=== PATIENT | female | born 1965 | race Caucasian/White ===

== ENCOUNTER 2018-07-01 17:11 | Outpatient (REF) | payer BC, SELFPAY ==
[2018-07-01 22:19] LABS: ESR 16 MM/HR (0-30)
[2018-07-03 12:52] LABS: Rheumatoid Factor <8 IU/mL (<12.5)
[2018-07-03 15:19] LABS: ANA Interpretation Negative (NEGAT)
[2018-07-03 15:25] LABS: Lyme Ab w Rflx to Lyme Confirm Negative
[2018-07-03 21:12] LABS: Anaplasma phagocytophilum Negative (Negative); B. miyamotoi PCR Negative (Negative); Babesia divergens/MO-1 Negative (Negative); Babesia duncani Negative (Negative); Babesia microti Negative (Negative); Ehrlichia chaffeensis Negative (Negative); Ehrlichia ewingii/canis Negative (Negative); Ehrlichia muris eauclairensis Negative (Negative)
== END 2018-07-01 17:31 ==
LOC: NCHCN 17:11
PROVIDERS: PCP Physician Assistant Medical; Visit Provider Physician Assistant Medical
DX: M25.50 Pain in unspecified joint (principal)
CPT/HCPCS: 85652; 86038; 86140; 86431; 86618; 87798

== ENCOUNTER 2018-07-02 09:25 | Outpatient (CLI) | payer BC, SELFPAY ==
--- NOTE | 2018-07-02 14:42 | DI.RAD_ITS ---
SYMPTOMS/DIAGNOSIS: RIGHT KNEE PAIN, M25.561 RIGHT KNEE: Periarticular hypertrophic spurring is most pronounced in the patellofemoral joint. There is a probable small joint effusion.
== END 2018-07-02 09:45 ==
PROVIDERS: PCP Physician Assistant Medical; Visit Provider Physician Assistant Medical
DX: M25.561 Pain in right knee (principal); M25.461 Effusion, right knee
CPT/HCPCS: 73562

== ENCOUNTER 2018-07-22 23:35 | Observation (INO) | payer BC, SELFPAY ==
[2018-07-22 23:42] VITALS: BP 175/106; PULSE 75; RESP 16; TEMP 36.6; O2SAT 100
[2018-07-23] VITALS (9 sets, daily range): BP systolic 130–170; BP diastolic 84–105; PULSE 64–79; RESP 16–20; TEMP 36.6–37; O2SAT 94–99
--- NOTE | 2018-07-23 00:04 | W.ED.GENAD ---
Discharge Plan Disposition Patient Disposition: [facility] INPATIENT Condition: Stable Discharge Details Chief Complaint: Abd Prob Clinical Impression: Small bowel obstruction Primary Care Provider: Willian Petersen ED Provider: Ken Shipman Home Meds and New Rx's Prescriptions: No Action citalopram 10 MG tablet 10 mg PO HS RF: 0 cetirizine 10 MG tablet,chewable 10 mg PO HS RF: 0 acetaminophen 325 MG tablet 2 tab PO Q4H PRN PRNRF: 0 fluticasone 16 GM spray,suspension 1 spray NS BID RF: 0 Ibuprofen 400 MG Tablet 400 mg PO PRN PRNRF: 0 Medical Decision Making <Balaji Bland MD - Last Filed: 07/23/18 01:46> 53-year-old female presents from home with recurrent episodes of nausea and vomiting consistent with previous ileus. She is at risk for small bowel obstruction given previous surgical history. She arrives afebrile, in mild distress. She is tender in the abdomen but does not demonstrate peritonitis. IV access established, patient given antiemetic and analgesic, fluids initiated, patient referred for laboratory testing and x-ray. Patient's labs reveal a white blood cell count of 12, hematocrit 45, platelets 307. Chemistries are reassuring. X-ray reveals nonobstructive gas pattern. Consistent with ileus. Patient is desirous of admission to [facility] and does not wish to be transferred. Currently, there is no available bed, therefore we will continue observation and fluid replacement in the ED <Ken Shipman MD - Last Filed: 07/23/18 09:39> Pt's CT shows mid small bowel obstruction per Dr. patrick, spoke with Dr. Taylor who will admit the pt and asks that a ng tube be placed. Pt consents to having this done and is agreeable with admission Imaging Data Radiologic Study: Attestation: I personally reviewed and interpreted this imaging study as follows: Imaging: CT Scan My impression: SBO HPI <Balaji Bland MD - Last Filed: 07/23/18 01:46> General Mode of arrival: ambulatory. Date/Time Provider Initiated Documentation: 07/22/18 23:38. Limitations to Documentation: no limitations. Information obtained by: patient and family. History of Present Illness described as moderate, Quality is described as other (Cramping), and is localized to the abdomen. Patient reports no radiation. Patient started experiencing this hour(s) and it has been intermittent. No relieving factors improve symptom(s), Eating worsens symptoms . HPI Narrative: 53-year-old female presents from home with a gradual onset of abdominal crampy, diffuse pain associated with nausea and vomiting. Worsened by p.o. intake. Similar to previous episodes of ileus. She denies any fever. Related Data Home Medications Medication Instructions Recorded Confirmed cetirizine 10 mg PO HS 07/28/15 07/22/18 citalopram 10 mg PO HS 07/28/15 07/22/18 acetaminophen 2 tab PO Q4H PRN PRN 12/31/16 07/22/18 Ibuprofen 400 mg PO PRN PRN 01/03/18 07/22/18 fluticasone 1 spray NS BID 01/03/18 07/22/18 Allergies Allergy/AdvReac Type Severity Reaction Status Date / Time latex Allergy Skin Rash Unverified 07/22/18 23:47 Opioids - Morphine Analogues AdvReac Intermediate N/V/Dizzine Unverified 07/22/18 23:47 ss General Stated Complaint: Abd Prob DOUG: 3 Review of Systems <Balaji Bland MD - Last Filed: 07/23/18 01:46> Review of Systems 8 systems reviewed and otherwise negative Exam <Balaji Bland MD - Last Filed: 07/23/18 01:46> Narrative Exam Narrative: GEN: awake, alert, oriented 3. Pleasant, well groomed, interactive. HEAD: Normocephalic, atraumatic ENT: Mucous membranes moist, oropharynx unremarkable, External ear exam unremarkable EYES: PERRL, EOMI NECK: Full ROM, no CINDY, no menigismus CHEST/RESP: Nontender, clear to auscultation bilateral, no wheeze/rhonchi/rales CARDIOVASCULAR: RRR, no murmur, rub justine. 2+ Rad pulse bilateral ABDOMEN: Soft, slightly tender, distended, no rebound, no mass. +Bowel sounds EXT: Full ROM, no edema, no rash Neuro: Grossly normal neurologic exam, conversant, interactive. Psych: Speech fluent, thoughts congruent, affect normal Course <Balaji Bland MD - Last Filed: 07/23/18 01:46> Vital Signs Temperature 36.6 C 07/22/18 23:42 Pulse 75 07/22/18 23:42 Respiratory Rate 16 07/22/18 23:42 Blood Pressure 175/106 H 07/22/18 23:42 Pulse Oximetry 100 07/22/18 23:42 Temperature 36.6 C 07/22/18 23:42 Temperature Source Skin 07/22/18 23:42 Pulse 75 07/22/18 23:42 Respiratory Rate 16 07/22/18 23:42 Respiratory Effort 07/22/18 23:44 Blood Pressure 175/106 H 07/22/18 23:42 Blood Pressure Position Sitting 07/22/18 23:42 Pulse Oximetry 100 07/22/18 23:42 Pain Level 7 07/22/18 23:42 Sign Out <Balaji Bland MD - Last Filed: 07/23/18 01:46> Sign Out Data: Sign Out Comment: CT result, prob admission Last updated by Balaji Bland MD at 07/23/18 07:52
[2018-07-23 00:13] LABS: Abs Immature Grans 0.03 k/cumm (0.0-0.09); Absolute Basophil Count 0.03 k/cumm (0.0-0.2); Absolute Eosinophil Count 0.18 k/cumm (0.0-0.7); Absolute Lymphocyte Count 2.66 k/cumm (1.2-3.4); Absolute Monocyte Count 0.83 k/cumm (0.11-0.7); Absolute Neutrophil Count 8.85 k/cumm (1.2-6.7); Basophils % 0.2; Eosinophils % 1.4; HCT 45.1 % (36.0-46.0); HGB 15.5 g/dL (12.0-15.5); Immature Grans % 0.2; Lymphocytes % 21.2; Mean Corp. HGB Concentration 34.4 g/dL (32.0-36.0); Mean Corpuscular Hemoglobin 29.5 pg (27.0-33.0); Mean Corpuscular Volume 85.7 fL (80-95); Mean Platelet Volume 9.6 fL (8.0-11.0); Monocytes % 6.6; Neutrophils % 70.4; Platelet Count 307 x1000/uL (130-400); RBC 5.26 m/cumm (4.00-5.20); RBC Distribution Width 13.8 % (11.7-14.6); White Blood Cell Count 12.57 k/cumm (4.4-10.8)
[2018-07-23] MEDS: Normal Saline 1,000 ML 125 ML IV ×2 (00:13→11:07)
[2018-07-23] MEDS: Ketorolac 15 MG/ML VIAL IVP ×2 (00:13→04:12)
[2018-07-23] MEDS: Ondansetron 4 MG/2 ML VIAL IVP ×2 (00:13→06:08)
--- NOTE | 2018-07-23 00:20 | DI.RAD_ITS ---
SYMPTOM/DIAGNOSIS: ABD PAIN, BLOATING, VOMITING PA CHEST AND FLAT AND UPRIGHT ABDOMEN: Comparison is made with 01/03/18. The heart size is normal. The lungs are clear. No free air is seen. Stool is seen throughout the colon. There are no dilated bowel loops or air fluid levels. Surgical clips are noted in the right upper quadrant. No organomegaly or urinary tract calculi are seen. IMPRESSION: Increased stool, otherwise negative.
[2018-07-23 00:25] LABS: ALT 21 U/L (12-78); AST 19 U/L (15-37); Albumin 3.8 g/dL (3.4-5.0); Alkaline Phosphatase 102 U/L (46-116); Anion Gap 12.7 mmol/L (3-11); BUN 12 mg/dL (7-18); Bilirubin, Total 0.6 mg/dL (0.2-1.0); CO2 31.3 mmol/L (21.0-32.0); Chloride 100 mmol/L (98-107); Glucose 121 mg/dL (70-100); Lipase 64 U/L (73-393); Potassium 3.7 mmol/L (3.5-5.1); Sodium 144 mmol/L (136-145); Total Protein 8.2 g/dL (6.4-8.2)
--- NOTE | 2018-07-23 01:08 | DI.VRAD_ITS ---
EXAM: XR Abdomen 2 Views with XR Chest 1 View EXAM DATE/TIME: 07/23/2018 12:04 AM CLINICAL HISTORY: 53 years old, female; Pain and signs and symptoms; Nausea and vomiting; Abdominal pain; Generalized; Patient HX: Nausea, vomiting, abd pain, HX of colon CA TECHNIQUE: XR of the abdomen (2 views) with XR chest (1 view). COMPARISON: CR ABD FLAT UPRIGHT PA CHEST 01/03/2018 10:38 PM FINDINGS: Tubes, catheters and devices: The previously seen left chest wall infusion port has been removed. Lungs: The pulmonary vasculature is within normal limits. The lungs are clear. Pleural space: No pneumothorax. No pleural effusion. Heart/Mediastinum: The cardiomediastinal silhouette is within normal limits. Gastrointestinal tract: Moderate amount of stool in the colon. Nonobstructive bowel gas pattern. Intraperitoneal space: No evidence of pneumoperitoneum on the upright views. Right upper quadrant surgical clips. Vasculature: Scattered pelvic phleboliths in the pelvis. Bones/joints: Normal. No acute fracture. Soft tissues: Normal. IMPRESSION: 1. No acute cardiopulmonary abnormality. 2. Nonobstructive bowel gas pattern. Dictated and Authenticated by: Leonor Leung MD. Ordering:MARIA ISABEL RIBEIRO MD
[2018-07-23 02:07] LABS: Bilirubin Negative (Negative); Blood Negative (Negative); Clarity Clear; Glucose Negative (Negative); Ketones Trace mg/dL (Negative); Leukocyte Esterase Negative (Negative); Nitrite Negative (Negative); Specific Gravity 1.025 (1.005-1.025); Urobilinogen 0.2 EU/dL (Up TO 0.2); pH 6.5 (5-8)
[2018-07-23 02:15] LABS: Bacteria Negative HPF (Negative); C & S Indicated? No; Casts Negative LPF (Negative); Crystals Negative HPF (Negative); Epithelial Cells Rare HPF (Negative); Mucus Negative (Negative); RBC Negative (0-2); WBC 0-2 HPF (0-5)
--- NOTE | 2018-07-23 07:46 | DI.CT_ITS ---
SYMPTOM/DIAGNOSIS: ABD PAIN, BLOATING VOMITING ABDOMEN AND PELVIS CT: Comparison is made with 01/30/18. Images were performed from the lung bases through the ischial tuberosities after IV and without benefit of oral contrast. The patient has a history of rectal cancer. The bowel is not well evaluated without oral contrast. There is mild dilatation of loops of small bowel in the mid abdomen. A rectal anastomosis with suture material at the cecum are noted. There is a small amount of fluid. There are decompressed loops of small bowel distally. Stool is seen throughout the colon however the colon is not abnormally dilated. The patient is status post cholecystectomy. The lung bases are clear. The spleen, adrenals and pancreas are unremarkable. The patient is status post hysterectomy. The bladder is nearly empty. IMPRESSION: The findings are consistent with a mid small bowel obstruction.
[2018-07-23] MEDS: Omnipaque 350 MG/ML 100 ML BTL IJ (08:07)
[2018-07-23] MEDS: Metoclopramide 10 MG/2 ML VIAL IVP (09:11)
[2018-07-23] MEDS: Ketorolac 15 MG/ML VIAL ×2 (09:58→14:19)
--- NOTE | 2018-07-23 10:09 | DI.VRAD_ITS ---
EXAM: CT Abdomen and Pelvis With Intravenous Contrast EXAM DATE/TIME: 07/23/2018 8:23 AM CLINICAL HISTORY: 53 years old, female; Signs and symptoms; Other: Abd pain, bloating, vomiting TECHNIQUE: Axial computed tomography images of the abdomen and pelvis with intravenous contrast. All CT scans at this facility use at least one of these dose optimization techniques: automated exposure control; mA and/or kV adjustment per patient size (includes targeted exams where dose is matched to clinical indication); or iterative reconstruction. Coronal and sagittal reformatted images were created and reviewed. CONTRAST: 100 ml of Omnipaque 350 administered intravenously. COMPARISON: CT CHEST ABD PELVIS WITH CONTRAST 01/30/2018 9:21 AM FINDINGS: Lower thorax: -Small hiatal hernia Small nodular density in the soft tissues of the right breast inferiorly. 10 mm. ABDOMEN: Liver: Area of low attenuation within the liver adjacent to the fissure of the ligamentum teres is believed to represent focal fat. Gallbladder and bile ducts: Mild prominence of the biliary radicles intrahepatically. Prominence of the extrahepatic biliary radicals status post cholecystectomy. Correlate with LFTs. -Surgical clips are present in the region of the gallbladder fossa. -Prominence of the biliary radicals likely related to the prior cholecystectomy and hence the reservoir effect. Please correlate with LFTs. Pancreas: Low density in the region of the head of the pancreas. Likely atrophic. Spleen: -Small accessory spleen is present. Adrenals: Normal. No mass. Kidneys and ureters: Normal. No hydronephrosis. Stomach and bowel: Numerous loops of air fluid filled small bowel particularly in the mid and lower abdomen and pelvis. Findings reflect a small bowel obstruction. Transition point appears to be a loop of thickened small bowel in the right pelvis. See image #74 series 5. The bowel proximal to this is air and fluid filled and mildly dilated with fecalization of the adjacent bowel. Operative changes in the rectosigmoid region. Severe thickening of the rectum and about the anastomosis. Edema and inflammation in the presacral fat. Correlate. Operative changes in the region of the cecum and or terminal ileum. Appendix: No evidence of appendicitis. PELVIS: Bladder: Unremarkable as visualized. Reproductive: Prior hysterectomy. ABDOMEN and PELVIS: Intraperitoneal space: Normal. No free air. No significant fluid collection. Bones/joints: Degenerative changes are present within the spine. Soft tissues: Unremarkable. Vasculature: Normal. No abdominal aortic aneurysm. Lymph nodes: Normal. No enlarged lymph nodes. Other findings: Stable moderate and IMPRESSION: 1. Numerous loops of air fluid filled small bowel particularly in the mid and lower abdomen and pelvis. Findings reflect a small bowel obstruction. Transition point appears to be a loop of thickened small bowel in the right pelvis. See image #74 series 5. The bowel proximal to this is air and fluid filled and mildly dilated with fecalization of the adjacent bowel. . this represents an interval change. 2. Operative changes in the rectosigmoid region. Severe thickening of the rectum and sigmoid colon about the anastomosis. This is progressive. Edema and inflammation in the presacral fat was previously noted. Correlate. 3. Operative changes in the region of the cecum and or terminal ileum. 4. Mild prominence of the biliary radicles intrahepatically. Prominence of the extrahepatic biliary radicals status post cholecystectomy. Correlate with LFTs. 5. Low density in the region of the head of the pancreas. Likely atrophic. 6. Small nodular density in the soft tissues of the right breast inferiorly. 10 mm. Dictated and Authenticated by: Austin Lopez MD. Ordering:MARIA ISABEL RIBEIRO MD
--- NOTE | 2018-07-23 11:56 | W.PM.HP.N ---
Date of service: 07/23/18 Time of Service: 11:56 Assessment and Plan (1) Small bowel obstruction: Current visit: Yes Status: Acute A// 53 y/o female with history of numerous admissions for Ileus following rectal cancer treatment. Based on imaging she currently has a small bowel obstruction. N/V and abdominal pain has improved following administration of Reglan and Toradol. Imaging: CT scan demonstrated mid small bowel obstruction. ABD XRAY demonstrated increased stool. No dilated bowel loops or air/fluid levels. Discussed use of NG tube to help decompress the bowel. Dr. Cole followed up with Florian Mjisiahaníbal. Ms. Brownlee would like to hold off on the NG tube. If her N/V returns or if her abdominal pain becomes progressively worse, at that time she would like to move forward with NG tube placement. P// NG Tube- Will hold of on NG. If nausea or vomiting continues or worsens or if her abdominal pain changes or worsens will reconsider NG tube placement. Continue Tordal for pain management N/V- Last bout of emesis was around 1000, these symptoms improved following administration of Reglan. Continue Reglan for N/V PRN. DIET- NPO ACTIVITY- Encouraged ambulation as tolerated. History of Present Illness Chief Complaint: Small bowel obstruction Narrative: Patient presents with complaints of cramping abdominal pain and N/V since last night around 2100. She reports that her abdominal pain comes and goes and feels like a cramping sensation. She states that prior to arrival in the ED her PL was 8-9/10PL. She last ate yesterday afternoon around 1400. Last BM was last evening. She denies any fevers, chills or sweating. Review of Systems Constitutional Denies chills, Denies excessive sweating and Denies fever(s) Cardiovascular Denies chest pain, Denies chest pain at rest, Denies chest pain with activity and Denies diaphoresis Respiratory Denies cough, Denies hemoptysis, Denies pain with cough and Denies wheezing Gastrointestinal Reports abdominal pain (Periumbilical and LLQ), Denies melena, Denies hematochezia, Denies constipation, Reports cramping (Periumbilical and LLQ ), Denies diarrhea, Reports nausea and Reports vomiting (Last time occured around 1000) Comments: N/V has improved following Reglan administration. Genitourinary Denies urinary incontinence, Denies urinary hesitancy and Denies urinary urgency Endocrine Denies excessive sweating Allergic/Immunologic Denies wheezing PFSH Family History Mother Dementia Medical History Anxiety Migraine Rectal cancer Rectal prolapse Social History Smoking/Tobacco Use Status: Never Surgical History Biopsy of breast Cholecystectomy Colonoscopy - MAC (09/30/16) Colonoscopy - MAC (01/01/17) Colonoscopy - MAC (06/01/18) Partial resection of colon (11/27/16) Vaginal hysterectomy colostomy takedown (10/15/17) left subclavian vein port removal (05/07/18) Meds Home Medications Medication Instructions Recorded Confirmed Type cetirizine 10 mg PO HS 07/28/15 07/22/18 History citalopram 10 mg PO HS 07/28/15 07/22/18 History acetaminophen 2 tab PO Q4H PRN PRN 12/31/16 07/22/18 History Ibuprofen 400 mg PO PRN PRN 01/03/18 07/22/18 History fluticasone 1 spray NS BID 01/03/18 07/22/18 History Allergies Allergy/AdvReac Type Severity Reaction Status Date / Time latex Allergy Skin Rash Unverified 07/22/18 23:47 Opioids - Morphine Analogues AdvReac Intermediate N/V/Dizzine Unverified 07/22/18 23:47 ss Exam Const General: cooperative and acute distress mild Orientation: alert and oriented x3 Resp Effort & Inspection: normal respiratory effort Auscultation: clear to auscultation bilaterally Cardio Jugular venous pressure: no JVD Rate: regular rate Rhythm: regular rhythm Heart Sounds: S1 normal, S2 normal, no gallops and no murmurs GI Palpation: soft, no guarding and tender in the LLQ and periumbilically; with no rebound tenderness Auscultation: hypoactive bowel sounds Results Labs : 07/24/18 00:30 07/22/18 23:55 Laboratory Results - last 24 hr 07/22/18 07/22/18 07/23/18 23:55 23:55 02:00 WBC 12.57 H RBC 5.26 H Hgb 15.5 Hct 45.1 MCV 85.7 MCH 29.5 MCHC 34.4 RDW 13.8 Plt Count 307 MPV 9.6 Immature Gran % 0.2 Neutrophils % 70.4 Lymphocytes % 21.2 Monocytes % 6.6 Eosinophils % 1.4 Basophils % 0.2 Absolute Neutrophils 8.85 H Absolute Lymphocytes 2.66 Absolute Monocytes 0.83 H Absolute Eosinophils 0.18 Absolute Basophils 0.03 Sodium 144 Potassium 3.7 Chloride 100 Carbon Dioxide 31.3 Anion Gap 12.7 H BUN 12 Creatinine 0.80 Estimated GFR/1.73 m2 >= 60.00 Glucose 121 H Calcium 10.0 Total Bilirubin 0.6 AST 19 ALT 21 Alkaline Phosphatase 102 Total Protein 8.2 Albumin 3.8 Lipase 64 L Urine Color Yellow Urine Clarity Clear Urine pH 6.5 Ur Specific [place] 1.025 Urine Protein 30 H Urine Ketones Trace H Urine Blood Negative Urine Nitrite Negative Urine Bilirubin Negative Urine Urobilinogen 0.2 Ur Leukocyte Esterase Negative Urine RBC Negative Urine WBC 0-2 Ur Epithelial Cells Rare Urine Crystals Negative Urine Bacteria Negative Urine Casts Negative Urine Mucus Negative Ur Culture Indicated? No Urine Glucose Negative Last Vital Signs Temp 37 C 07/23/18 11:44 Pulse 76 07/23/18 11:44 Resp 16 07/23/18 11:44 BP 155/94 H 07/23/18 11:44 Pulse Ox 94 L 07/23/18 11:44
[2018-07-23] MEDS: Pantoprazole 40 MG VIAL IVP (14:13)
[2018-07-23] MEDS: Enoxaparin 40 MG/0.4 ML SYR SC (15:32)
[2018-07-23] MEDS: Lactated Ringers 1,000 ML 125 ML IV ×2 (15:35→23:31)
[2018-07-23] MEDS: Bisacodyl 10 MG SUPP PR (18:27)
[2018-07-23] MEDS: ACETAMINOPHEN 1,000 MG/100 ML BTL 400 MG IVPB (19:43)
[2018-07-23] MEDS: Ketorolac 30 MG/ML VIAL IVP (23:36)
[2018-07-23] MEDS: Normal Saline Flush 10 ML SYR IVP (23:37)
[2018-07-24 00:33] VITALS: BP 136/90; PULSE 72; RESP 15; TEMP 35.7; O2SAT 98
[2018-07-24 00:39] LABS: Abs Immature Grans 0.01 k/cumm (0.0-0.09); Absolute Basophil Count 0.02 k/cumm (0.0-0.2); Absolute Eosinophil Count 0.11 k/cumm (0.0-0.7); Absolute Lymphocyte Count 2.08 k/cumm (1.2-3.4); Absolute Monocyte Count 0.83 k/cumm (0.11-0.7); Absolute Neutrophil Count 6.57 k/cumm (1.2-6.7); Basophils % 0.2; Eosinophils % 1.1; HCT 37.2 % (36.0-46.0); HGB 12.7 g/dL (12.0-15.5); Immature Grans % 0.1; Lymphocytes % 21.6; Mean Corp. HGB Concentration 34.1 g/dL (32.0-36.0); Mean Corpuscular Hemoglobin 29.8 pg (27.0-33.0); Mean Corpuscular Volume 87.3 fL (80-95); Mean Platelet Volume 9.2 fL (8.0-11.0); Monocytes % 8.6; Neutrophils % 68.4; Platelet Count 252 x1000/uL (130-400); RBC 4.26 m/cumm (4.00-5.20); RBC Distribution Width 14.1 % (11.7-14.6); White Blood Cell Count 9.62 k/cumm (4.4-10.8)
[2018-07-24 04:06] VITALS: BP 162/84; PULSE 82; RESP 14; TEMP 36.4; O2SAT 99
[2018-07-24 07:20] VITALS: BP 123/80; PULSE 72; RESP 16; TEMP 36.3; O2SAT 97
[2018-07-24] MEDS: Lactated Ringers 1,000 ML 125 ML IV ×3 (07:24→22:51)
[2018-07-24 07:46] LABS: ALT 16 U/L (12-78); AST 14 U/L (15-37); Albumin 2.6 g/dL (3.4-5.0); Alkaline Phosphatase 69 U/L (46-116); Anion Gap 6.8 mmol/L (3-11); BUN 14 mg/dL (7-18); Bilirubin, Total 0.8 mg/dL (0.2-1.0); CO2 27.2 mmol/L (21.0-32.0); Calcium 8.4 mg/dL (8.5-10.1); Chloride 110 mmol/L (98-107); Glucose 86 mg/dL (70-100); Magnesium 1.9 mg/dL (1.8-2.4); Potassium 3.4 mmol/L (3.5-5.1); Sodium 144 mmol/L (136-145); Total Protein 5.8 g/dL (6.4-8.2)
--- NOTE | 2018-07-24 08:44 | W.PM.PROGNOT ---
Documented by User: TONY Dee 07/24/18 08:53 Assessment and Plan (1) Small bowel obstruction: Current visit: Yes Status: Acute A// Small bowel obstruction. Nausea and vomiting has resolved and her pain levels of decreased. No bowel sounds were appeciated on exam this morning. P// PAIN- Symptoms have improved. Continue with tordal PRN for pain. DIET- Continue NPO. ACTIVITY- Continue ambulating in the hallway. Subjective Patient reports: pain is less; denies flatus, nausea and vomiting Interval history since last seen: Ms. Irvin states that her pain levels have improved and she has not taken any medications for pain since last evening at 23:00. She denies any complaints of nausea or vomiting since yesterday (07/23) at 11:00. (+) BM yesterday following a suppository. She has ambulated several laps in the hallway already this morning. Exam Const General: cooperative and comfortable Orientation: alert and oriented x3 Resp Effort & Inspection: normal respiratory effort Auscultation: clear to auscultation bilaterally, no crackles and no wheezes Cardio Jugular venous pressure: no JVD Rate: regular rate Rhythm: regular rhythm Heart Sounds: S1 normal, S2 normal, no click and no gallops GI Palpation: soft, no guarding and nontender Auscultation: absent bowel sounds Objective Objective Clinical Data: Abnormal lab results 07/24/18 07/24/18 Range/Units 00:30 06:25 Absolute Monocytes 0.83 H (0.11-0.7) k/cumm Potassium 3.4 L (3.5-5.1) mmol/L Chloride 110 H (98-107) mmol/L Calcium 8.4 L (8.5-10.1) mg/dL AST 14 L (15-37) U/L Total Protein 5.8 L (6.4-8.2) g/dL Albumin 2.6 L (3.4-5.0) g/dL Vital Signs Temperature 36.3 C L 07/24/18 07:20 Temperature Source Tympanic 07/24/18 07:20 Pulse 72 07/24/18 07:20 Pulse Rhythm Regular 07/24/18 00:05 Respiratory Rate 16 07/24/18 07:20 Respiratory Effort 07/24/18 00:05 Respiratory Depth Normal 07/24/18 00:05 Respiratory Pattern Normal 07/24/18 00:05 Blood Pressure 123/80 07/24/18 07:20 Blood Pressure Position Sitting 07/22/18 23:42 Pulse Oximetry 97 07/24/18 07:20 Oxygen Delivery Method Room Air 07/24/18 07:20 Oxygen Flow Rate 0 07/24/18 07:20 Pain Level 2 07/23/18 23:36 Comment 07/23/18 14:49 Intake & Output 07/23/18 07/23/18 07/24/18 11:59 23:59 11:59 Intake Total 1000 / 1000 1887.917 / 1887.917 985.417 / 985.417 Output Total 200 / 200 300 / 300 300 / 300 Balance 800 / 800 1587.917 / 1587.917 685.417 / 685.417 Weight 95.7 kg Intake: IV 1000 / 1000 1647.917 / 1647.917 985.417 / 985.417 Oral 240 / 240 0 / 0 Output: Urine 300 / 300 300 / 300 Emesis 200 / 200 Other: Urine Color Yellow Urine Appearance Clear Comment voided in toilet x 1, unseen. 300cc is pt's estimate Stool Size Small Stool Characteristics Liquid Brown Voiding Methods Toilet Toilet Laboratory Results WBC 9.62 k/cumm (4.4-10.8) 07/24/18 00:30 RBC 4.26 m/cumm (4.00-5.20) 07/24/18 00:30 Hgb 12.7 g/dL (12.0-15.5) D 07/24/18 00:30 Hct 37.2 % (36.0-46.0) 07/24/18 00:30 MCV 87.3 fL (80-95) 07/24/18 00:30 MCH 29.8 pg (27.0-33.0) 07/24/18 00:30 MCHC 34.1 g/dL (32.0-36.0) 07/24/18 00:30 RDW 14.1 % (11.7-14.6) 07/24/18 00:30 Plt Count 252 x1000/uL (130-400) 07/24/18 00:30 MPV 9.2 fL (8.0-11.0) 07/24/18 00:30 Immature Gran % 0.1 07/24/18 00:30 Neutrophils % 68.4 07/24/18 00:30 Lymphocytes % 21.6 10 00:30 Monocytes % 8.6 10 00:30 Eosinophils % 1.1 07/24/18 00:30 Basophils % 0.2 07/24/18 00:30 Absolute Neutrophils 6.57 k/cumm (1.2-6.7) 07/24/18 00:30 Absolute Lymphocytes 2.08 k/cumm (1.2-3.4) 07/24/18 00:30 Absolute Monocytes 0.83 k/cumm (0.11-0.7) H 07/24/18 00:30 Absolute Eosinophils 0.11 k/cumm (0.0-0.7) 07/24/18 00:30 Absolute Basophils 0.02 k/cumm (0.0-0.2) 07/24/18 00:30 Sodium 144 mmol/L (136-145) 07/24/18 06:25 Potassium 3.4 mmol/L (3.5-5.1) L 07/24/18 06:25 Chloride 110 mmol/L (98-107) H 07/24/18 06:25 Carbon Dioxide 27.2 mmol/L (21.0-32.0) 07/24/18 06:25 Anion Gap 6.8 mmol/L (3-11) 07/24/18 06:25 BUN 14 mg/dL (7-18) 07/24/18 06:25 Creatinine 0.70 mg/dL (0.55-1.02) 07/24/18 06:25 Estimated GFR/1.73 m2 >= 60.00 (mL/min/1.73m2) 07/24/18 06:25 Glucose 86 mg/dL (70-100) 07/24/18 06:25 Calcium 8.4 mg/dL (8.5-10.1) L 07/24/18 06:25 Magnesium 1.9 mg/dL (1.8-2.4) 07/24/18 06:25 Total Bilirubin 0.8 mg/dL (0.2-1.0) 07/24/18 06:25 AST 14 U/L (15-37) L 07/24/18 06:25 ALT 16 U/L (12-78) 07/24/18 06:25 Alkaline Phosphatase 69 U/L (46-116) 07/24/18 06:25 Total Protein 5.8 g/dL (6.4-8.2) L 07/24/18 06:25 Albumin 2.6 g/dL (3.4-5.0) L 07/24/18 06:25 Lipase 64 U/L (73-393) L 07/22/18 23:55 Urine Color Yellow (Yellow) 07/23/18 02:00 Urine Clarity Clear 07/23/18 02:00 Urine pH 6.5 (5-8) 07/23/18 02:00 Ur Specific [place] 1.025 (1.005-1.025) 07/23/18 02:00 Urine Protein 30 mg/dL (Negative) H 07/23/18 02:00 Urine Ketones Trace mg/dL (Negative) H 07/23/18 02:00 Urine Blood Negative (Negative) 07/23/18 02:00 Urine Nitrite Negative (Negative) 07/23/18 02:00 Urine Bilirubin Negative (Negative) 07/23/18 02:00 Urine Urobilinogen 0.2 EU/dL (Up TO 0.2) 07/23/18 02:00 Ur Leukocyte Esterase Negative (Negative) 07/23/18 02:00 Urine RBC Negative (0-2) 07/23/18 02:00 Urine WBC 0-2 HPF (0-5) 07/23/18 02:00 Ur Epithelial Cells Rare HPF (Negative) 07/23/18 02:00 Urine Crystals Negative HPF (Negative) 07/23/18 02:00 Urine Bacteria Negative HPF (Negative) 07/23/18 02:00 Urine Casts Negative LPF (Negative) 07/23/18 02:00 Urine Mucus Negative (Negative) 07/23/18 02:00 Ur Culture Indicated? No 07/23/18 02:00 Urine Glucose Negative mg/dL (Negative) 07/23/18 02:00
--- NOTE | 2018-07-24 09:27 | PHARADMIT ---
Admission Pharmacy Clinical Review SMALL BOWEL OBSTRUCTION Code Status Full Code Current Weight Wgt-95.7 kg Renally Cleared and Narrow Therapeutic Index Meds CrCl~ 77.26 mL/min Meds-OK QTc Value / Action Taken NA BP Control, Fever BP-123/80 Tmax-36.7C Electrolytes reviewed Na- 144 K+3.4 Mag- 1.9 DVT Prophylaxis Lovenox Opiate Usage / Scheduled Bowel Regimen Ordered Yes No Plt/SCr for Heparin / Enoxaparin Plts-252 SCr- 0.70 INR for Warfarin na H/H stable, WBC/Bands H&H- 12.7/37.2 WBC- 9.62 Antibiotic appropriateness none Cultures and Sensitivities none Surgical ABX d/c within 24 hr NA DM control / Insulin Dosing BG- 86 Heart Failure (Check EF%) (MELBA's, B-Block, Diuretics) none IV to PO Switch No Home Meds Reviewed Yes Home Meds Not Ordered Zyrtec, Celexa, Flonase, Ibuprofen Comments
[2018-07-24 11:15] VITALS: BP 144/91; PULSE 72; RESP 20; TEMP 36.1; O2SAT 97
[2018-07-24] MEDS: Normal Saline Flush 10 ML SYR IVP (11:15)
[2018-07-24] MEDS: Enoxaparin 40 MG/0.4 ML SYR SC (11:17)
[2018-07-24] MEDS: Pantoprazole 40 MG VIAL IVP (11:17)
[2018-07-24 16:01] VITALS: BP 145/88; PULSE 72; RESP 16; TEMP 37; O2SAT 100
--- NOTE | 2018-07-24 17:11 | PDOC.CMIN ---
- If Service Date Differs Date of service: 07/24/18 Time of Service: 17:11 Care Management Initial Assess REASON FOR HOSPITALIZATION:: Small bowel obstruction PAST MEDICAL HISTORY/PAST SURGICAL HISTORY:: Anxiety, migraine, rectal ca, rectal prolaspe. Surgical: colectomy, ileostomy, cholecystectomy, hysterectomy PREVIOUS FUNCTIONAL STATUS/SOCIAL/FAMILY SUPPORTS:: Patient is a 53 year old female who lives with her , Iman in [facility]. CURRENT FUNCTIONAL STATUS:: Brooke is sitting up in the chair visiting with her friend when CM into visit. She makes good eye contact she states she is ambulating to try and releive the small bowel obstruction. She appears in good spirts, and expresses confidence in the care she is receiving. ADVANCE DIRECTIVES:: On file--spouse, Isha is agent and Rev. Kojo Vergara is alternate. Has patient been provided with information about the portal?: Yes Did the patient sign up for the portal?: No CODE STATUS:: Full Code INSURANCE COVERAGE / FINANCIAL ISSUES:: BCBS CURRENT HOME/COMMUNITY SERVICES/EQUIPMENT:: No current services at home,she has been working with [employer] r/t disability application. PRIMARY CARE PHYSICIAN:: Willian Petersen POTENTIAL DISCHARGE NEEDS:: Follow up appointment with primary care provider and surgical provider as directed. PATIENT/FAMILY EDUCATION NEEDS:: Discharge education, limitations and follow up plan of care including ask me three discussion and self-care management ANTICIPATED BARRIERS TO DISCHARGE:: None identified at this time. TRANSPORTATION:: Via family at time of discharge when medically ready per MD. PLAN:: Brooke will discharge home with family when medically ready, anticipate no addtional services at time of discharge.
[2018-07-25 00:23] VITALS: BP 149/88; PULSE 90; RESP 18; TEMP 36.4; O2SAT 99
[2018-07-25 03:30] VITALS: BP 145/84; PULSE 70; RESP 16; TEMP 36.6; O2SAT 98
[2018-07-25] MEDS: Lactated Ringers 1,000 ML 125 ML IV (06:42)
[2018-07-25 07:25] VITALS: BP 156/89; PULSE 69; RESP 16; TEMP 36.4; O2SAT 99
[2018-07-25] MEDS: Normal Saline Flush 10 ML SYR IVP (11:10)
[2018-07-25] MEDS: Enoxaparin 40 MG/0.4 ML SYR SC (11:10)
[2018-07-25] MEDS: Pantoprazole 40 MG VIAL IVP (11:10)
[2018-07-25 11:20] VITALS: BP 167/96; PULSE 70; RESP 17; TEMP 36.1; O2SAT 98
--- NOTE | 2018-07-25 12:44 | PGE_ITS ---
Assessment and Plan (1) Small bowel obstruction: Current visit: Yes Status: Acute A// Small bowel obstruction seems to have resolved P// 1. PAIN- No pain for 24 hours. will switch tylenol over to po 2. Diet: Tolerated clear liquids this morning and for lunch. Will advance to soft, low fiber diet for dinner. 3. ACTIVITY- Continue ambulating in the hallway. 4. Disposition: If she continues to do well and is able to tolerate soft diet tonight and for breakfast then will d/c home Subjective Interval history since last seen: Brooke is doing well today. She started passing flatus earlier this morning and then had 3 BM's. She has had no abdominal pain in 24 hours. Exam Resp Effort & Inspection: normal respiratory effort Auscultation: clear to auscultation bilaterally Cardio Rate: regular rate Rhythm: regular rhythm Heart Sounds: no gallops, no murmurs and no rubs GI Palpation: soft and nontender Auscultation: normal bowel sounds Objective Objective Clinical Data: Vital Signs Temperature 97.5 F L 07/25/18 07:25 Temperature Source Tympanic 07/25/18 07:25 Pulse 69 07/25/18 07:25 Pulse Rhythm Regular 07/25/18 09:00 Respiratory Rate 16 07/25/18 07:25 Respiratory Effort Non-Labored 07/25/18 09:00 Respiratory Depth Normal 07/25/18 09:00 Respiratory Pattern Normal 07/25/18 09:00 Blood Pressure 156/89 H 07/25/18 07:25 Blood Pressure Position Sitting 07/22/18 23:42 Pulse Oximetry 99 07/25/18 07:25 Oxygen Delivery Method Room Air 07/25/18 07:25 Oxygen Flow Rate 0 07/25/18 07:25 Pain Level 0 07/25/18 07:25 Comment 07/25/18 03:30 Intake & Output 07/24/18 07/25/18 07/25/18 23:59 11:59 23:59 Intake Total 1541.667 / 2115.658 7254.25 / 1001.25 706.25 / 706.25 Output Total 200 / 200 Balance 1341.667 / 5743.209 4659.25 / 1001.25 706.25 / 706.25 Intake: IV 1541.667 / 3014.607 6522.25 / 1001.25 706.25 / 706.25 Output: Urine 200 / 200 Other: Urine Color Yellow Urine Appearance Clear Comment Pt voiding independently in bathroom. Stool Size Smear Stool Characteristics Liquid Brown Voiding Methods Toilet Toilet Laboratory Results WBC 9.62 k/cumm (4.4-10.8) 07/24/18 00:30 RBC 4.26 m/cumm (4.00-5.20) 07/24/18 00:30 Hgb 12.7 g/dL (12.0-15.5) D 07/24/18 00:30 Hct 37.2 % (36.0-46.0) 07/24/18 00:30 MCV 87.3 fL (80-95) 07/24/18 00:30 MCH 29.8 pg (27.0-33.0) 07/24/18 00:30 MCHC 34.1 g/dL (32.0-36.0) 07/24/18 00:30 RDW 14.1 % (11.7-14.6) 07/24/18 00:30 Plt Count 252 x1000/uL (130-400) 07/24/18 00:30 MPV 9.2 fL (8.0-11.0) 07/24/18 00:30 Immature Gran % 0.1 07/24/18 00:30 Neutrophils % 68.4 07/24/18 00:30 Lymphocytes % 21.6 07/24/18 00:30 Monocytes % 8.6 07/24/18 00:30 Eosinophils % 1.1 07/24/18 00:30 Basophils % 0.2 07/24/18 00:30 Absolute Neutrophils 6.57 k/cumm (1.2-6.7) 07/24/18 00:30 Absolute Lymphocytes 2.08 k/cumm (1.2-3.4) 07/24/18 00:30 Absolute Monocytes 0.83 k/cumm (0.11-0.7) H 07/24/18 00:30 Absolute Eosinophils 0.11 k/cumm (0.0-0.7) 07/24/18 00:30 Absolute Basophils 0.02 k/cumm (0.0-0.2) 07/24/18 00:30 Sodium 144 mmol/L (136-145) 07/24/18 06:25 Potassium 3.4 mmol/L (3.5-5.1) L 07/24/18 06:25 Chloride 110 mmol/L (98-107) H 07/24/18 06:25 Carbon Dioxide 27.2 mmol/L (21.0-32.0) 07/24/18 06:25 Anion Gap 6.8 mmol/L (3-11) 07/24/18 06:25 BUN 14 mg/dL (7-18) 07/24/18 06:25 Creatinine 0.70 mg/dL (0.55-1.02) 07/24/18 06:25 Estimated GFR/1.73 m2 >= 60.00 (mL/min/1.73m2) 07/24/18 06:25 Glucose 86 mg/dL (70-100) 07/24/18 06:25 Calcium 8.4 mg/dL (8.5-10.1) L 07/24/18 06:25 Magnesium 1.9 mg/dL (1.8-2.4) 07/24/18 06:25 Total Bilirubin 0.8 mg/dL (0.2-1.0) 07/24/18 06:25 AST 14 U/L (15-37) L 07/24/18 06:25 ALT 16 U/L (12-78) 07/24/18 06:25 Alkaline Phosphatase 69 U/L (46-116) 07/24/18 06:25 Total Protein 5.8 g/dL (6.4-8.2) L 07/24/18 06:25 Albumin 2.6 g/dL (3.4-5.0) L 07/24/18 06:25 Lipase 64 U/L (73-393) L 07/22/18 23:55 Urine Color Yellow (Yellow) 07/23/18 02:00 Urine Clarity Clear 07/23/18 02:00 Urine pH 6.5 (5-8) 07/23/18 02:00 Ur Specific [place] 1.025 (1.005-1.025) 07/23/18 02:00 Urine Protein 30 mg/dL (Negative) H 07/23/18 02:00 Urine Ketones Trace mg/dL (Negative) H 07/23/18 02:00 Urine Blood Negative (Negative) 07/23/18 02:00 Urine Nitrite Negative (Negative) 07/23/18 02:00 Urine Bilirubin Negative (Negative) 07/23/18 02:00 Urine Urobilinogen 0.2 EU/dL (Up TO 0.2) 07/23/18 02:00 Ur Leukocyte Esterase Negative (Negative) 07/23/18 02:00 Urine RBC Negative (0-2) 07/23/18 02:00 Urine WBC 0-2 HPF (0-5) 07/23/18 02:00 Ur Epithelial Cells Rare HPF (Negative) 07/23/18 02:00 Urine Crystals Negative HPF (Negative) 07/23/18 02:00 Urine Bacteria Negative HPF (Negative) 07/23/18 02:00 Urine Casts Negative LPF (Negative) 07/23/18 02:00 Urine Mucus Negative (Negative) 07/23/18 02:00 Ur Culture Indicated? No 07/23/18 02:00 Urine Glucose Negative mg/dL (Negative) 07/23/18 02:00
--- NOTE | 2018-07-25 14:50 | PDOC.CMPRO ---
- If Service Date Differs Date of service: 07/25/18 Time of Service: 14:50 Care Management Progress Note S/O: Brooke is ambulating in the halls, she is in good spirts. Started on clear liquids today continues to receive IV fluids. Anticipate she will discharge home tomorrow is she continues to improve. A: Brooke is a 53 year old female admitted with small bowel obstructions with a history of multiple bowel surgeries r/t history of rectal cancer in which she is in remission. P:Brooke will discharge home when she is ready for discharge per provider. Family to transport home when she is medically ready. Anticipate no services at time of discharge. CM to continue to provide support to patient discharge planning.
[2018-07-25 16:04] VITALS: BP 178/114; PULSE 62; RESP 18; TEMP 36.6; O2SAT 100
[2018-07-25 20:00] VITALS: BP 158/95; PULSE 63; RESP 15; TEMP 36.6; O2SAT 98
[2018-07-25] MEDS: Citalopram 10 MG TAB PO (22:04)
[2018-07-26 03:25] VITALS: BP 146/92; PULSE 66; RESP 16; TEMP 36.9; O2SAT 100
[2018-07-26 07:30] VITALS: BP 168/98; PULSE 66; RESP 18; TEMP 36.8; O2SAT 97
[2018-07-26] MEDS: Bacitracin 1 PACKET TP (11:15)
[2018-07-26 11:35] VITALS: BP 144/94; RESP 17; TEMP 36.7; O2SAT 96
--- NOTE | 2018-07-26 12:06 | W.PM.DS.N ---
Date of service: 07/26/18 Time of Service: 11:30 DS: Diagnosis Discharge Diagnosis (1) Small bowel obstruction: Status: Acute Discharge Plan Disposition Patient Disposition: HOME Condition: Stable Discharge Details Reason For Visit: SMALL BOWEL OBSTRUCTION Admit Date/Time: 07/23/18 09:32 Admit Provider: Verona Cole Attending Provider: Verona Cole Primary Care Provider: Willian Petersen Hospital Course Hospital Course: Brooke is a pleasant 53 year old female well known to me. He underwent surgery for colorectal Cancer, chemotherapy and radiation. She then underwent reversal of her ileostomy. While having Chemo she was admitted 3 times with ileus which usually resolved in 24 hours. After her ileostomy reversal she had 3 more bout of ileus vs PSBO. This time she came in with about a weeks worth of changes in bowel habits. The day of her admission she had N/V as well. Ct scan this time definitively showed a SBO. She was admitted on IV fluids and NPO status. On PAD #2 she started to have flatus and had several liquid stools. She was started on clear liquids and advanced to a soft, low fiber diet by that evening. On PAD #3 she was tolerating a soft diet. She did have diarrhea after every meal, but no pain. Brooke was discharged home on a soft, low fiber diet. I asked her to call my office on Friday and make an appointment for 2 weeks. If she was feeling great she can cancel the appointment. if she is still having diarrhea then I will see her and I may order a small bowel follow through to make sure there isn't an area of narrowing in the small bowel. I have asked her to call me if her symptoms recur or go back to the ER. Home Meds and New Rx's Prescriptions: Continue citalopram 10 MG tablet 10 mg PO HS RF: 0 cetirizine 10 MG tablet,chewable 10 mg PO HS RF: 0 acetaminophen 325 MG tablet 2 tab PO Q4H PRN PRNRF: 0 fluticasone 16 GM spray,suspension 1 spray NS BID RF: 0 Ibuprofen 400 MG Tablet 400 mg PO PRN PRNRF: 0 Discharge Instructions Instructions: Low Fiber Diet (DC), Bowel Obstruction (DC) Additional Instructions: Return to the ER if you develop: Nausea or Vomiting Worsening abdominal pain Fevers >101.5 Referrals: Verona Cole MD [ [facility] STAFF PHYSICIAN] - (2 weeks. Please call the office at ) Willian Petersen PA [Primary Care Provider] - (1-23 weeks) Activity:: Activity as Tolerated Equipment/Supplies:: No Equipment Needed Diet:: low fiber, soft Discharge Orders Discharge Orders: Discharge Order (Routine); Ordered 07/26/18 Ordered By: Verona Cole Exam GI Palpation: soft and nontender DS: Data Vitals/I&O Vitals and I&O: Vital Signs Temperature 98.2 F 07/26/18 07:30 Temperature Source Tympanic 07/26/18 07:30 Pulse 66 07/26/18 07:30 Pulse Rhythm Regular 07/26/18 08:00 Respiratory Rate 18 07/26/18 07:30 Respiratory Effort Non-Labored 07/26/18 08:00 Respiratory Depth Normal 07/26/18 08:00 Respiratory Pattern Normal 07/26/18 08:00 Blood Pressure 168/98 H 07/26/18 07:30 Blood Pressure Position Sitting 07/22/18 23:42 Pulse Oximetry 97 07/26/18 07:30 Oxygen Delivery Method Room Air 07/26/18 07:30 Oxygen Flow Rate 0 07/26/18 07:30 Pain Level 0 07/26/18 07:30 Comment 07/25/18 03:30 Intake & Output 07/25/18 07/26/18 07/26/18 23:59 11:59 23:59 Intake Total 1471.25 / 1471.25 250 / 250 Output Total 3400 / 3400 Balance -1928.75 / -1928.75 250 / 250 Intake: IV 706.25 / 706.25 Oral 765 / 765 250 / 250 Output: Urine 3400 / 3400 Other: Voiding Methods Toilet
--- NOTE | 2018-07-26 13:52 | NUR.NOTE ---
Nursing Note: 1115 Pt reported she was moving the end table in the family day room and received a splinter in her left pinky finger. MD was notified, agreed to let nurse take splinter out. Pinky finger cleansed, wiped with alcohol and splinter removed. Bacitracin applied and covered with bandaid. MD SHILPI, and nurse drywall application supervisor aware.
== END 2018-07-26 13:24 | disposition home or self-care (01) ==
LOC: ER 07-23 10:23 → MS 07-23 14:34
PROVIDERS: Emergency Medicine; Admitting Provider Surgery; Emergency Provider Emergency Medicine; PCP Physician Assistant Medical; Visit Provider Surgery
DX: K56.699 Other intestinal obstruction unspecified as to partial versus complete obstruction (principal); Z85.038 Personal history of other malignant neoplasm of large intestine; Z85.048 Personal history of other malignant neoplasm of rectum, rectosigmoid junction, and anus; Z92.21 Personal history of antineoplastic chemotherapy; Z92.3 Personal history of irradiation
CPT/HCPCS: 36415; 80053; 83690; 96361; 96374; 96375; 96376; 99223; 99232; 99238; 99285; J1650; 74022; 74177; 81003; 81015; 83735; 85025; G0378; J0131; J1885; J2405; J3490

== ENCOUNTER 2018-08-11 00:36 | Outpatient (CLI) | payer BC, SELFPAY ==
--- NOTE | 2018-08-11 08:00 | DI.CT_ITS ---
SYMPTOMS/DIAGNOSIS: H/O RECTAL CA, S/P CHEMO, RADIATION AND SURGERY, RESTAGING EXAM CT SCAN OF THE CHEST, ABDOMEN AND PELVIS: CT scan of the chest, abdomen and pelvis was performed according to protocol. Comparison examination is 07/23/18, 04/11/18 and 01/30/18. CT SCAN OF THE ABDOMEN AND PELVIS: The liver is normal in size. No hepatic mass is seen. The portal and superior mesenteric veins are patent. The patient is status post cholecystectomy. No biliary ductal dilatation is present. The pancreas and spleen are unremarkable. There is no evidence of an adrenal mass. The kidneys show normal and symmetric enhancement. No suspicious solid renal mass, calculus or obstruction is identified. The urinary bladder is intact. The patient is status post hysterectomy. The abdominal aorta is of normal caliber. No significant abdominal or pelvic adenopathy, ascites or pneumoperitoneum is present. There is a moderately large amount of stool throughout the colon. Anastomotic sutures are again seen in the region of the rectum. Soft tissue thickening is seen in the presacral space. This is all stable. No evidence of a recurrent mass is appreciated. No findings to suggest an acute inflammatory or infectious process of the bowel. No evidence of osseous metastatic disease is present. Degenerative changes are seen in the spine. IMPRESSION: No evidence of abdominal or pelvic metastatic disease. CT SCAN OF THE CHEST: The thoracic aorta is of normal caliber and intact. The heart size is within normal limits. No significant pericardial effusion is present. No significant mediastinal or hilar adenopathy is present. No axillary adenopathy is seen. No pleural effusion or pneumothorax is identified. No pulmonary nodules or infiltrates are seen. The tracheobronchial tree is unremarkable. Degenerative changes are seen in the spine. No suspicious lytic or sclerotic lesions are identified. IMPRESSION: No evidence of thoracic metastatic disease.
[2018-08-11] MEDS: Omnipaque 350 MG/ML 50 ML BTL IJ (08:29)
[2018-08-11] MEDS: Breeza Beverage 473 ML BTL PO (08:30)
[2018-08-11] MEDS: Omnipaque 350 MG/ML 100 ML BTL IJ (08:32)
[2018-08-11 08:39] LABS: Abs Immature Grans 0.05 k/cumm (0.0-0.09); Absolute Lymphocyte Count 1.86 k/cumm (1.2-3.4); Absolute Monocyte Count 0.86 k/cumm (0.11-0.7); Basophils % 0.1; HCT 40.1 % (36.0-46.0); HGB 13.7 g/dL (12.0-15.5); Immature Grans % 0.3; Lymphocytes % 10.6; Mean Corp. HGB Concentration 34.2 g/dL (32.0-36.0); Mean Corpuscular Hemoglobin 29.7 pg (27.0-33.0); Mean Corpuscular Volume 86.8 fL (80-95); Mean Platelet Volume 9.1 fL (8.0-11.0); Monocytes % 4.9; Neutrophils % 84.1; Platelet Count 303 x1000/uL (130-400); RBC 4.62 m/cumm (4.00-5.20); RBC Distribution Width 13.5 % (11.7-14.6); White Blood Cell Count 17.59 k/cumm (4.4-10.8)
[2018-08-11 08:43] LABS: Absolute Basophil Count 0.02 k/cumm (0.0-0.2); Absolute Neutrophil Count 14.79 k/cumm (1.2-6.7)
[2018-08-11 08:59] LABS: ALT 21 U/L (12-78); AST 16 U/L (15-37); Albumin 3.3 g/dL (3.4-5.0); Alkaline Phosphatase 83 U/L (46-116); BUN 14 mg/dL (7-18); Bilirubin, Total 0.4 mg/dL (0.2-1.0); CREATININE 0.79 mg/dL (0.55-1.02); Calcium 9.6 mg/dL (8.5-10.1); Chloride 103 mmol/L (98-107); Glucose 120 mg/dL (70-100); Potassium 3.7 mmol/L (3.5-5.1); Sodium 138 mmol/L (136-145); TSH 0.64 uIU/mL (0.358-3.74); Total Protein 7.2 g/dL (6.4-8.2)
[2018-08-12 12:02] LABS: CEA <0.5 ng/ml
== END 2018-08-11 00:56 ==
PROVIDERS: PCP Physician Assistant Medical; Visit Provider Internal Medicine Hematology & Oncology
DX: Z92.21 Personal history of antineoplastic chemotherapy; Z92.3 Personal history of irradiation; Z12.89 Encounter for screening for malignant neoplasm of other sites; C20 Malignant neoplasm of rectum
CPT/HCPCS: 36415; 74177; 80053; 71260; 82378; 84443; 85025; J3490; Q9967

== ENCOUNTER 2018-08-14 14:54 | Outpatient (CLI) | payer BC, SELFPAY ==
[2018-08-14 15:20] LABS: Abs Immature Grans 0.01 k/cumm (0.0-0.09); Absolute Basophil Count 0.03 k/cumm (0.0-0.2); Absolute Lymphocyte Count 2.51 k/cumm (1.2-3.4); Absolute Monocyte Count 0.64 k/cumm (0.11-0.7); Absolute Neutrophil Count 3.92 k/cumm (1.2-6.7); Basophils % 0.4; Eosinophils % 2.7; HCT 42.8 % (36.0-46.0); HGB 14.5 g/dL (12.0-15.5); Immature Grans % 0.1; Lymphocytes % 34.3; Mean Corp. HGB Concentration 33.9 g/dL (32.0-36.0); Mean Corpuscular Hemoglobin 29.5 pg (27.0-33.0); Mean Corpuscular Volume 87.2 fL (80-95); Mean Platelet Volume 9.3 fL (8.0-11.0); Monocytes % 8.8; Neutrophils % 53.7; Platelet Count 292 x1000/uL (130-400); RBC 4.91 m/cumm (4.00-5.20); RBC Distribution Width 13.9 % (11.7-14.6); White Blood Cell Count 7.31 k/cumm (4.4-10.8)
[2018-08-14 15:23] LABS: Bilirubin Negative (Negative); Blood Negative (Negative); Clarity Clear; Glucose Negative (Negative); Ketones Negative (Negative); Leukocyte Esterase Negative (Negative); Nitrite Negative (Negative); Urobilinogen 0.2 EU/dL (Up TO 0.2)
== END 2018-08-14 15:14 ==
PROVIDERS: PCP Physician Assistant Medical; Visit Provider Internal Medicine Hematology & Oncology
DX: C20 Malignant neoplasm of rectum (principal)
CPT/HCPCS: 36415; 81003; 85025

== ENCOUNTER 2018-09-09 00:52 | Outpatient (CLI) | payer BC, SELFPAY ==
[2018-09-09] MEDS: Barium Sulfate 60% W/V 355 ML BTL PO ×2 (10:41)
--- NOTE | 2018-09-09 10:42 | DI.RAD_ITS ---
SYMPTOM/DIAGNOSIS: ? PARTIAL SMALL BOWEL OBSTRUCTION, ABD PAIN, R10.9, H/O COLON CA SMALL BOWEL FOLLOW THROUGH: Brickmason view of the abdomen shows a large quantity of stool throughout the colon. No small bowel dilatation or gastric distension is seen. Cholecystectomy clips are noted. Transit time of the barium to the colon was approximately 30 minutes. The small bowel fold pattern appears normal. There is no dilatation. IMPRESSION: Large quantity of stool. Normal appearing small bowel.
== END 2018-09-09 01:12 ==
PROVIDERS: PCP Physician Assistant Medical; Visit Provider Surgery
DX: R10.9 Unspecified abdominal pain (principal); Z85.038 Personal history of other malignant neoplasm of large intestine; K59.00 Constipation, unspecified
CPT/HCPCS: 74250

== ENCOUNTER 2018-09-29 01:43 | Observation (INO) | payer BC, SELFPAY ==
[2018-09-29] VITALS (7 sets, daily range): BP systolic 134–178; BP diastolic 81–108; PULSE 64–89; RESP 16–18; TEMP 35.9–36.9; O2SAT 97–100
--- NOTE | 2018-09-29 01:59 | W.ED.GENAD ---
Discharge Plan Disposition Patient Disposition: [facility] INPATIENT Condition: Good Discharge Details Chief Complaint: Abd Prob Clinical Impression: Small bowel obstruction Reason For Visit: SBO Admit Date/Time: 09/29/18 04:45 Admit Provider: Marques Apple III Attending Provider: Marques Apple III Primary Care Provider: Willian Petersen ED Provider: Corey Shaffer Medical Decision Making This is a very pleasant 53-year-old female who has a strong past medical history of multiple bowel obstructions and ileus is. She has had numerous surgeries including hysterectomy, colon cancer, resection, and eventual ostomy reversal. She presents today with cramping and one episode of vomiting that started at 9 PM. She states her symptoms are similar to her normal episodes of obstruction and ileus. Patient often responds very well to Zofran and Toradol. We will get a CT scan with contrast to evaluate for acute etiology. However the patient signs and symptoms appear clinically consistent with obstruction. 4:43 AM Patient's laboratory workup has returned demonstrates no significant abnormalities, no significant leukocytosis, or electrolyte abnormality. Mild white count of only 12.55 with no bandemia. Lipase is normal. Patient's CT scan per virtual radiology shows concerns for small bowel obstruction. This does appear clinically consistent with the patient's current symptomatology. She has tolerated the Toradol and Zofran well and has not had additional vomiting since the initial administration of that. She has been rehydrated with 1 L of normal saline. His of the patient's clinical history, CT findings, and symptomatology I do feel that she would benefit from admission/observation. I did contact the surgeon Dr. Meneses, he agrees with the assessment and plan. We will hold off on NG tube at this time as the patient seems to be tolerating the pain well, and is requesting to wait for NG tube administration. I have extensively reviewed the treatment plan with the patient. I have addressed all patient concerns at this time. I have also discussed the plan with the admitting physician and they agree with the current assessment and plan and have agreed to assume responsibility for the patient. All parties demonstrate verbal understanding and agreement with our assessment and plan at this time. Of note there is an addendum for the patient's CT imaging stating that there is no ventral hernia, rather there is borderline dilated small bowel loops in the left lower quadrant that could indicate elements of small bowel obstruction, and minimal ascites. FINDINGS: Lower thorax: No acute findings. ABDOMEN: Liver: Normal. No mass. Gallbladder and bile ducts: Normal. No calcified stones. No ductal dilation. Pancreas: Normal. No ductal dilation. Spleen: Normal. No splenomegaly. Adrenals: Normal. No mass. Kidneys and ureters: Normal. No hydronephrosis. Stomach and bowel: Small bowel obstruction with transition point and bowel-containing periumbilical ventral hernia. Appendix: No evidence of appendicitis. PELVIS: Bladder: Unremarkable as visualized. Reproductive: Unremarkable as visualized. ABDOMEN and PELVIS: Intraperitoneal space: Normal. No free air. No significant fluid collection. Bones/joints: Degenerative change of the spine. Soft tissues: Unremarkable. Vasculature: Normal. No abdominal aortic aneurysm. Lymph nodes: Normal. No enlarged lymph nodes. IMPRESSION: Small bowel obstruction with transition point and bowel-containing periumbilical ventral hernia. Dictated and Authenticated by: Ken Sidhu MD. HPI General Date/Time Provider Initiated Documentation: 09/29/18 01:49. HPI Narrative: This is a 53-year-old female with a past medical history of multiple obstructions and ileus is, colon cancer with subsequent resection, ostomy, and ostomy reversal on October 152017. She has had additional past surgeries of hysterectomy and cholecystectomy. She presents today for episodes of cramping and one episode of vomiting that started at 9 PM. She states that her symptoms are consistent with her numerous other episodes of ileus and obstruction in the past. She was able to eat dinner earlier tonight, however she has not been able to keep anything down since then. She denies any chest pain, shortness of breath, numbness tingling or weakness. She denies any hematemesis, melena, acholic stool or diarrhea. She denies any other modifying factors or any other complaints. Related Data Home Medications Medication Instructions Recorded Confirmed cetirizine 10 mg PO HS 07/28/15 09/29/18 citalopram 10 mg PO HS 07/28/15 09/29/18 acetaminophen 2 tab PO Q4H PRN PRN 12/31/16 09/29/18 Ibuprofen 400 mg PO PRN PRN 01/03/18 09/29/18 fluticasone 1 spray NS BID 01/03/18 09/29/18 Allergies Allergy/AdvReac Type Severity Reaction Status Date / Time latex Allergy Skin Rash Unverified 09/29/18 01:50 Opioids - Morphine Analogues AdvReac Intermediate N/V/Dizzine Unverified 09/29/18 01:50 ss General Stated Complaint: Abd Prob DOUG: 3 Review of Systems Review of Systems All systems reviewed & are unremarkable except as noted in HPI and below PFSH Medical History Hx of small bowel obstruction (Chronic) Anxiety Migraine Rectal cancer Rectal prolapse Surgical History Biopsy of breast Cholecystectomy Colonoscopy - MAC (09/30/16) Colonoscopy - MAC (01/01/17) Colonoscopy - MAC (06/01/18) Partial resection of colon (11/27/16) Vaginal hysterectomy colostomy takedown (10/15/17) left subclavian vein port removal (05/07/18) Family History Mother Dementia Social History household members: spouse housing: house Smoking/Tobacco Use Status: Never alcohol intake: current alcohol intake frequency: a few times a month substance use type: does not use Exam Narrative Exam Narrative: 1.Const: Well-nourished, Well-developed, appearing stated age 2.Eyes: PERRL, no conjunctival injection, and symmetrical lids. 3.ENT: Atraumatic external nose and ears. Moist MM. Neck: Symmetric, trachea midline, No thyromegaly. 4.CVS: +S1/S2, No murmurs or gallops. Peripheral pulses 2+ and equal in all extremities. Brisk capillary refill in all extremities. 5.RESP: Unlabored respiratory effort. Clear to auscultation bilaterally. No wheezes rales or rhonchi 6.GI: Soft, nondistended, diffuse very mild tenderness throughout. Decreased bowel sounds throughout. No pain at McBurney's point, negative García sign. 7.MSK: Normocephalic/Atraumatic, Extremities w/o deformity or ttp No cyanosis or clubbing, Normal movement of all extremities 8.Skin: Warm, Dry. No rashes or lesions. 9.Neuro: amplifier mechanic II-XII grossly intact. Sensation grossly intact, no focal neurologic deficits. 10.Psych: (AAO) x3. Appropriate mood and affect Course Vital Signs Temperature 36.5 C 09/29/18 01:46 Pulse 89 09/29/18 01:46 Respiratory Rate 16 09/29/18 01:46 Blood Pressure 178/108 H 09/29/18 01:46 Pulse Oximetry 100 09/29/18 01:46 Temperature 36.5 C 09/29/18 01:46 Temperature Source Temporal Artery Scan 09/29/18 01:46 Pulse 89 09/29/18 01:46 Respiratory Rate 16 09/29/18 01:46 Respiratory Effort 09/29/18 01:46 Blood Pressure 178/108 H 09/29/18 01:46 Pulse Oximetry 100 09/29/18 01:46 Oxygen Delivery Method Room Air 09/29/18 01:46 Oxygen Flow Rate 0 09/29/18 01:46 Pain Level 7 09/29/18 01:46
[2018-09-29] MEDS: Ketorolac 30 MG/ML VIAL 15 MG IVP (02:12)
[2018-09-29] MEDS: Ondansetron 4 MG/2 ML VIAL IVP ×2 (02:12→06:31)
[2018-09-29] MEDS: Normal Saline 1,000 ML 1000 ML IV (02:13)
[2018-09-29 02:26] LABS: Abs Immature Grans 0.03 k/cumm (0.0-0.09); Absolute Basophil Count 0.03 k/cumm (0.0-0.2); Absolute Lymphocyte Count 3.35 k/cumm (1.2-3.4); Absolute Monocyte Count 0.94 k/cumm (0.11-0.7); Absolute Neutrophil Count 8.03 k/cumm (1.2-6.7); Basophils % 0.2; Eosinophils % 1.4; HCT 43.5 % (36.0-46.0); HGB 15.1 g/dL (12.0-15.5); Immature Grans % 0.2; Lymphocytes % 26.7; Mean Corp. HGB Concentration 34.7 g/dL (32.0-36.0); Mean Corpuscular Hemoglobin 30.2 pg (27.0-33.0); Mean Platelet Volume 9.4 fL (8.0-11.0); Monocytes % 7.5; Platelet Count 338 x1000/uL (130-400); RBC Distribution Width 13.7 % (11.7-14.6); White Blood Cell Count 12.55 k/cumm (4.4-10.8)
[2018-09-29 02:30] LABS: Absolute Eosinophil Count 0.18 k/cumm (0.0-0.7)
[2018-09-29 02:39] LABS: ALT 21 U/L (12-78); AST 20 U/L (15-37); Albumin 3.7 g/dL (3.4-5.0); Alkaline Phosphatase 99 U/L (46-116); Anion Gap 11.5 mmol/L (3-11); BUN 10 mg/dL (7-18); Bilirubin, Total 0.4 mg/dL (0.2-1.0); CO2 27.5 mmol/L (21.0-32.0); CREATININE 0.77 mg/dL (0.55-1.02); Chloride 102 mmol/L (98-107); Glucose 129 mg/dL (70-100); Lipase 59 U/L (73-393); Potassium 3.5 mmol/L (3.5-5.1); Sodium 141 mmol/L (136-145); Total Protein 7.7 g/dL (6.4-8.2)
[2018-09-29] MEDS: Omnipaque 350 MG/ML 100 ML BTL IJ (03:25)
--- NOTE | 2018-09-29 03:35 | DI.CT_ITS ---
SYMPTOM/DIAGNOSIS: VOMITING, H/O MULTIPLE OBSTRUCTIoNS. CT ABDOMEN AND PELVIS: The history is vomiting and past history of multiple obstructions. The study was conducted according to the usual protocol with intravenous administration of 100 cc Omnipaque 350. In the lower thorax no abnormality is seen. The liver is unremarkable. The gallbladder is normal. There are no stones or ductal dilatation. The pancreas and spleen and adrenals are normal. The kidneys are also normal. Note is made of what appears to represent a small bowel obstruction with a transition point in the bowel containing tammi-umbilical ventral hernia sac. The appendix is normal. The bladder and reproductive organs as visualized are unremarkable. There is no evidence of free air or free fluid in the intraperitoneal space. Degenerative changes involving the spine are identified. The soft tissues are unremarkable. There is no aortic aneurysm. There is no evidence of lymphadenopathy. SUMMARY: Small bowel obstruction with transition point at the bowel containing periumbilical ventral hernia.
--- NOTE | 2018-09-29 04:28 | DI.VRAD_ITS ---
EXAM: CT Abdomen and Pelvis With Contrast EXAM DATE/TIME: 09/29/2018 2:00 AM CLINICAL HISTORY: 53 years old, female; Pain; Abdominal pain; Generalized; Prior surgery; Surgery date: 6+ months; Surgery type: Colostomy and reversal, last surgery to reverse in oct 2017. Also hysterectomy; Patient HX: Vomiting HX of rectal cancer , and sbos TECHNIQUE: Axial computed tomography images of the abdomen and pelvis with intravenous contrast. All CT scans at this facility use at least one of these dose optimization techniques: automated exposure control; mA and/or kV adjustment per patient size (includes targeted exams where dose is matched to clinical indication); or iterative reconstruction. Coronal and sagittal reformatted images were created and reviewed. CONTRAST: 100 ml of Omnipaque 350 administered intravenously. COMPARISON: CT Abdomen^ROUTINE ABDOMEN PELVIS WITH CONTRAST (Adult) 07/23/2018 7:46 AM FINDINGS: Lower thorax: No acute findings. ABDOMEN: Liver: Normal. No mass. Gallbladder and bile ducts: Normal. No calcified stones. No ductal dilation. Pancreas: Normal. No ductal dilation. Spleen: Normal. No splenomegaly. Adrenals: Normal. No mass. Kidneys and ureters: Normal. No hydronephrosis. Stomach and bowel: Small bowel obstruction with transition point and bowel-containing periumbilical ventral hernia. Appendix: No evidence of appendicitis. PELVIS: Bladder: Unremarkable as visualized. Reproductive: Unremarkable as visualized. ABDOMEN and PELVIS: Intraperitoneal space: Normal. No free air. No significant fluid collection. Bones/joints: Degenerative change of the spine. Soft tissues: Unremarkable. Vasculature: Normal. No abdominal aortic aneurysm. Lymph nodes: Normal. No enlarged lymph nodes. IMPRESSION: Small bowel obstruction with transition point and bowel-containing periumbilical ventral hernia. Dictated and Authenticated by: Ken Sidhu MD. Ordering:KIMBERLI Nicole MD
--- NOTE | 2018-09-29 06:25 | HPE_ITS ---
Date of service: 09/29/18 Time of Service: 06:08 Assessment and Plan (1) Leukocytosis: Start date: 09/29/18 Start time: 06:20 Current visit: Yes Status: Acute IVF and serial labs (2) Acute abdominal pain: Start date: 09/29/18 Start time: 06:20 Current visit: Yes Status: Acute pt refusing an NGT. Pain meds and NPO (3) Small bowel obstruction due to adhesions: Start date: 09/29/18 Start time: 06:23 Current visit: Yes Status: Acute pt is NPO, started IVF, Pain meds and she is refusing an NGT Serial exams with labs to see if this is resolving nonoperatively as the previous sbo had for her History of Present Illness Chief Complaint: abd pain this episode as per pt is unlike her previous SBO in that it was sudden and she could not anticipate this as she has done in the past. Narrative: A pleasant 53yo female with know colon cancer, presents today with a frequently occurring SBO. Multiple surgeries and her previous SBO episodes resolving non-operatively. Review of Systems Review of Systems All systems reviewed & are unremarkable except as noted in HPI and below Gastrointestinal Reports system reviewed and no additional complaints, except as docu, Reports abdominal pain, Reports cramping and Reports vomiting PFSH Medical History Hx of small bowel obstruction (Chronic) Anxiety Migraine Rectal cancer Rectal prolapse Surgical History Biopsy of breast Cholecystectomy Colonoscopy - MAC (09/30/16) Colonoscopy - MAC (01/01/17) Colonoscopy - MAC (06/01/18) Partial resection of colon (11/27/16) Vaginal hysterectomy colostomy takedown (10/15/17) left subclavian vein port removal (05/07/18) Family History Mother Dementia Social History household members: spouse housing: house Smoking/Tobacco Use Status: Never alcohol intake: current alcohol intake frequency: a few times a month substance use type: does not use Meds Home Medications Medication Instructions Recorded Confirmed Type cetirizine 10 mg PO HS 07/28/15 09/29/18 History citalopram 10 mg PO HS 07/28/15 09/29/18 History acetaminophen 2 tab PO Q4H PRN PRN 12/31/16 09/29/18 History Ibuprofen 400 mg PO PRN PRN 01/03/18 09/29/18 History fluticasone 1 spray NS BID 01/03/18 09/29/18 History Allergies Allergy/AdvReac Type Severity Reaction Status Date / Time latex Allergy Skin Rash Unverified 09/29/18 01:50 Opioids - Morphine Analogues AdvReac Intermediate N/V/Dizzine Unverified 09/29/18 01:50 ss Exam GI Inspection: distended and incision Palpation: soft Auscultation: hyperactive bowel sounds Rectal Exam - female: abnormal visual inspection, sphincter tone not normal, No abnormal sphincter tone, No abnormal stool, No deferred, No fecal impaction, No fissure, No heme positive stool, No heme negative stool, No hemorrhoids, No laceration, No lesions, No mass, No ropey tissue in tammi-rectal space, No symmetric, No tenderness, No visual inspection abnormal and No other Abdomen image: 1. colectomy site 2. colectomy and hysterectomy 3. iliostomy site Results Labs : 09/29/18 02:10 09/29/18 02:10 Laboratory Results - last 24 hr 09/29/18 09/29/18 02:10 02:10 WBC 12.55 H RBC 5.00 Hgb 15.1 Hct 43.5 MCV 87.0 MCH 30.2 MCHC 34.7 RDW 13.7 Plt Count 338 MPV 9.4 Immature Gran % 0.2 Neutrophils % 64.0 Lymphocytes % 26.7 Monocytes % 7.5 Eosinophils % 1.4 Basophils % 0.2 Absolute Neutrophils 8.03 H Absolute Lymphocytes 3.35 Absolute Monocytes 0.94 H Absolute Eosinophils 0.18 Absolute Basophils 0.03 Sodium 141 Potassium 3.5 Chloride 102 Carbon Dioxide 27.5 Anion Gap 11.5 H BUN 10 Creatinine 0.77 Estimated GFR/1.73 m2 >= 60.00 Glucose 129 H Calcium 10.0 Total Bilirubin 0.4 AST 20 ALT 21 Alkaline Phosphatase 99 Total Protein 7.7 Albumin 3.7 Lipase 59 L Last Vital Signs Temp 36.9 C 09/29/18 04:59 Pulse 76 09/29/18 04:59 Resp 18 09/29/18 04:59 BP 157/97 H 09/29/18 04:59 Pulse Ox 98 09/29/18 04:59
[2018-09-29] MEDS: Ketorolac 30 MG/ML VIAL IVP (06:30)
[2018-09-29] MEDS: Lactated Ringers 1,000 ML 125 ML IV ×3 (06:32→22:45)
[2018-09-29 07:22] LABS: ALT 21 U/L (12-78); AST 16 U/L (15-37); Albumin 3.4 g/dL (3.4-5.0); Alkaline Phosphatase 83 U/L (46-116); Anion Gap 9.5 mmol/L (3-11); BUN 8 mg/dL (7-18); Bilirubin, Total 0.4 mg/dL (0.2-1.0); CO2 26.5 mmol/L (21.0-32.0); CREATININE 0.73 mg/dL (0.55-1.02); Calcium 9.6 mg/dL (8.5-10.1); Chloride 104 mmol/L (98-107); Glucose 114 mg/dL (70-100); Magnesium 1.9 mg/dL (1.8-2.4); Potassium 4.4 mmol/L (3.5-5.1); Sodium 140 mmol/L (136-145); Total Protein 7.3 g/dL (6.4-8.2)
[2018-09-29 07:27] LABS: Troponin I < 0.02 ng/mL (0.00-0.06)
--- NOTE | 2018-09-29 09:02 | PDOC.CMIN ---
Care Management Initial Assess REASON FOR HOSPITALIZATION:: SBO PAST MEDICAL HISTORY/PAST SURGICAL HISTORY:: Hx of small bowel obstruction (Chronic), Anxiety, Migraine, Rectal cancer, Rectal prolapse, Biopsy of breast, Cholecystectomy, multiple Colonoscopies, Partial resection of colon (11/27/16), Vaginal hysterectomy, colostomy takedown (10/15/17), left subclavian vein port removal (05/07/18), internal derangement of right knee, tubular adenoma of colon, ileus, ileostomy care, GI bleed, leukocytosis, hypomagnesemia PREVIOUS FUNCTIONAL STATUS/SOCIAL/FAMILY SUPPORTS:: Brooke resides with her , Iman in [facility]. CURRENT FUNCTIONAL STATUS:: Brooke is lying in bed, her Iman at her bedside. Brooke speaks in length about a small pillow given to her in the lobby of [facility] years ago that she has utilized with multiple surgeries throughout the years when inpatient overnight. ADVANCE DIRECTIVES:: On file--spouse, Isha is agent and RevFlorian Vergara is alternate. Has patient been provided with information about the portal?: Yes Did the patient sign up for the portal?: No CODE STATUS:: Full Code INSURANCE COVERAGE / FINANCIAL ISSUES:: BCBS CURRENT HOME/COMMUNITY SERVICES/EQUIPMENT:: No current services or equipment. PRIMARY CARE PHYSICIAN:: Willian Petersen POTENTIAL DISCHARGE NEEDS:: Follow up appointment with surgical services and PCP. PATIENT/FAMILY EDUCATION NEEDS:: Review of discharge instructions, discuss Ask Me Three. ANTICIPATED BARRIERS TO DISCHARGE:: None identified at this time. TRANSPORTATION:: Via private vehicle with her , Iman. PLAN:: Brooke remains NPO, on IVF. She is currently refusing NG tube. She has a hx of SBOs that have resolved on their own. When CM meets with her, Brooke reports she has made progress in the bathroom and is hopeful her diet can be advanced. ALCIDES relayed this information to KAYLYN Cade. ALCIDES will continue to follow. Brooke will return home with no additional anticipated services, she will transport via private vehicle with her , Iman.
--- NOTE | 2018-09-29 09:32 | INITIAL_ITS ---
Care Management Initial Assess REASON FOR HOSPITALIZATION:: SBO PAST MEDICAL HISTORY/PAST SURGICAL HISTORY:: Hx of small bowel obstruction (Chronic), Anxiety, Migraine, Rectal cancer, Rectal prolapse, Biopsy of breast, Cholecystectomy, multiple Colonoscopies, Partial resection of colon (11/27/16), Vaginal hysterectomy, colostomy takedown (10/15/17), left subclavian vein port removal (05/07/18), internal derangement of right knee, tubular adenoma of colon, ileus, ileostomy care, GI bleed, leukocytosis, hypomagnesemia PREVIOUS FUNCTIONAL STATUS/SOCIAL/FAMILY SUPPORTS:: Brooke resides with her , Iman in [facility]. CURRENT FUNCTIONAL STATUS:: Brooke is lying in bed, her Iman at her bedside. Brooke speaks in length about a small pillow given to her in the lobby of [facility] years ago that she has utilized with multiple surgeries throughout the years when inpatient overnight. ADVANCE DIRECTIVES:: On file--spouse, Isha is agent and RevlForian Vergara is alternate. Has patient been provided with information about the portal?: Yes Did the patient sign up for the portal?: No CODE STATUS:: Full Code INSURANCE COVERAGE / FINANCIAL ISSUES:: BCBS CURRENT HOME/COMMUNITY SERVICES/EQUIPMENT:: No current services or equipment. PRIMARY CARE PHYSICIAN:: Willian Petersen POTENTIAL DISCHARGE NEEDS:: Follow up appointment with surgical services and PCP. PATIENT/FAMILY EDUCATION NEEDS:: Review of discharge instructions, discuss Ask Me Three. ANTICIPATED BARRIERS TO DISCHARGE:: None identified at this time. TRANSPORTATION:: Via private vehicle with her , Iman. PLAN:: Brooke remains NPO, on IVF. She is currently refusing NG tube. She has a hx of SBOs that have resolved on their own. When CM meets with her, Brooke reports she has made progress in the bathroom and is hopeful her diet can be advanced. ALCIDES relayed this information to KAYLYN Cade. ALCIDES will continue to follow. Brooke will return home with no additional anticipated services, she will transport via private vehicle with her , Iman.
--- NOTE | 2018-09-29 12:23 | PHARADMIT ---
Addendum entered by Hilton Cuellar III 09/30/18 10:50: Pharmacy Note Subjective SBO resolving non-surgically. Advancing diet to soft. Objective VS-OK Lytes, SCr-WNL No BM yet Assessment Not using pain or nausea meds(Toradol or Zofran) Plan Awaiting improvement. Original Note: Admission Pharmacy Clinical Review SBO Code Status Full Code Current Weight 98.9 kg Renally Cleared and Narrow Therapeutic Index Meds Crcl ~77.26 mL/min current meds okay QTc Value / Action Taken n/a BP Control, Fever BP 134/83 afebrile Electrolytes reviewed within normal limits DVT Prophylaxis none Opiate Usage / Scheduled Bowel Regimen Ordered no/no Plt/SCr for Heparin / Enoxaparin plt 338 SCr 0.73 INR for Warfarin n/a H/H stable, WBC/Bands h/h 15.1/43.5 wbc 12.55 Antibiotic appropriateness none Cultures and Sensitivities n/a Surgical ABX d/c within 24 hr n/a DM control / Insulin Dosing BG 114 none Heart Failure (Check EF%) (MELBA's, B-Block, Diuretics) none IV to PO Switch n/a Home Meds Reviewed citalopram may increase the antiplatelet effects of ibuprofen Home Meds Not Ordered acetaminophen, cetirizine, citalopram, fluticasone, ibuprofen Comments
--- NOTE | 2018-09-29 14:59 | W.PM.PROGNOT ---
Date of Service Date of service: 09/29/18 Time of Service: 14:59 Assessment and Plan (1) Small bowel obstruction due to adhesions: Current visit: Yes Status: Acute FLUIDS- Continue IVF DIET- Will trial Clear liquids, start with sips to assess tolerance. Stop if you have abdominal pain, nausea or vomiting. PAIN- Currently is well managed. Continue Toradol for pain as needed. ACTIVITY- Continue ambulating in the hallways Subjective Interval history since last seen: Ms. Irvin reports that she has ambulated several laps around med/surg. She denies pain at this time since having Toradol. She reports that she is starting to feel hungry. Urinating without difficulty. Nsg reports that she has been passing gas and had a large formed BM. Exam Const General: cooperative and comfortable Orientation: alert and oriented x3 Objective Objective Clinical Data: Abnormal lab results 09/29/18 09/29/18 09/29/18 Range/Units 02:10 02:10 06:10 WBC 12.55 H (4.4-10.8) k/cumm Absolute Neutrophils 8.03 H (1.2-6.7) k/cumm Absolute Monocytes 0.94 H (0.11-0.7) k/cumm Anion Gap 11.5 H (3-11) mmol/L Glucose 129 H 114 H (70-100) mg/dL Lipase 59 L (73-393) U/L Vital Signs Temperature 36.5 C 09/29/18 11:30 Temperature Source Tympanic 09/29/18 11:30 Pulse 70 09/29/18 11:30 Pulse Rhythm Regular 09/29/18 08:21 Respiratory Rate 18 09/29/18 11:30 Respiratory Effort Non-Labored 09/29/18 08:21 Respiratory Depth Normal 09/29/18 08:21 Respiratory Pattern Normal 09/29/18 08:21 Blood Pressure 145/85 H 09/29/18 11:30 Pulse Oximetry 97 09/29/18 11:30 Oxygen Delivery Method Room Air 09/29/18 11:30 Oxygen Flow Rate 0 09/29/18 11:30 Pain Level 1 09/29/18 11:30 Intake & Output 09/28/18 09/29/18 09/29/18 23:59 11:59 23:59 Intake Total 1000 / 2000 1000 / 2000 Output Total 600 / 900 300 / 900 Balance 400 / 1100 700 / 1100 Weight 98.9 kg Intake: IV 1000 / 1999 1000 / 2000 Output: Urine 600 / 900 300 / 900 Other: Urine Color Yellow Yellow Urine Appearance Clear Clear Urine Odor None Stool Size Large Stool Characteristics Soft Formed Voiding Methods Toilet Laboratory Results WBC 12.55 k/cumm (4.4-10.8) H 09/29/18 02:10 RBC 5.00 m/cumm (4.00-5.20) 09/29/18 02:10 Hgb 15.1 g/dL (12.0-15.5) 09/29/18 02:10 Hct 43.5 % (36.0-46.0) 09/29/18 02:10 MCV 87.0 fL (80-95) 09/29/18 02:10 MCH 30.2 pg (27.0-33.0) 09/29/18 02:10 MCHC 34.7 g/dL (32.0-36.0) 09/29/18 02:10 RDW 13.7 % (11.7-14.6) 09/29/18 02:10 Plt Count 338 x1000/uL (130-400) 09/29/18 02:10 MPV 9.4 fL (8.0-11.0) 09/29/18 02:10 Immature Gran % 0.2 09/29/18 02:10 Neutrophils % 64.0 09/29/18 02:10 Lymphocytes % 26.7 09/29/18 02:10 Monocytes % 7.5 09/29/18 02:10 Eosinophils % 1.4 09/29/18 02:10 Basophils % 0.2 09/29/18 02:10 Absolute Neutrophils 8.03 k/cumm (1.2-6.7) H 09/29/18 02:10 Absolute Lymphocytes 3.35 k/cumm (1.2-3.4) 09/29/18 02:10 Absolute Monocytes 0.94 k/cumm (0.11-0.7) H 09/29/18 02:10 Absolute Eosinophils 0.18 k/cumm (0.0-0.7) 09/29/18 02:10 Absolute Basophils 0.03 k/cumm (0.0-0.2) 09/29/18 02:10 Sodium 140 mmol/L (136-145) 09/29/18 06:10 Potassium 4.4 mmol/L (3.5-5.1) D 09/29/18 06:10 Chloride 104 mmol/L (98-107) 09/29/18 06:10 Carbon Dioxide 26.5 mmol/L (21.0-32.0) 09/29/18 06:10 Anion Gap 9.5 mmol/L (3-11) 09/29/18 06:10 BUN 8 mg/dL (7-18) 09/29/18 06:10 Creatinine 0.73 mg/dL (0.55-1.02) 09/29/18 06:10 Estimated GFR/1.73 m2 >= 60.00 (mL/min/1.73m2) 09/29/18 06:10 Glucose 114 mg/dL (70-100) H 09/29/18 06:10 Calcium 9.6 mg/dL (8.5-10.1) 09/29/18 06:10 Magnesium 1.9 mg/dL (1.8-2.4) 09/29/18 06:10 Total Bilirubin 0.4 mg/dL (0.2-1.0) 09/29/18 06:10 AST 16 U/L (15-37) 09/29/18 06:10 ALT 21 U/L (12-78) 09/29/18 06:10 Alkaline Phosphatase 83 U/L (46-116) 09/29/18 06:10 Troponin I < 0.02 ng/mL (0.00-0.06) 09/29/18 06:10 Total Protein 7.3 g/dL (6.4-8.2) 09/29/18 06:10 Albumin 3.4 g/dL (3.4-5.0) 09/29/18 06:10 Lipase 59 U/L (73-393) L 09/29/18 02:10
[2018-09-29] MEDS: Normal Saline Flush 10 ML SYR IVP (16:13)
[2018-09-30] VITALS (7 sets, daily range): BP systolic 120–157; BP diastolic 79–98; PULSE 62–70; RESP 14–18; TEMP 36.1–36.9; O2SAT 97–98
[2018-09-30] MEDS: Normal Saline Flush 10 ML SYR IVP (05:56)
[2018-09-30] MEDS: Lactated Ringers 1,000 ML 125 ML IV (05:58)
[2018-09-30 06:59] LABS: ALT 19 U/L (12-78); AST 16 U/L (15-37); Albumin 3.1 g/dL (3.4-5.0); Alkaline Phosphatase 73 U/L (46-116); Anion Gap 12.6 mmol/L (3-11); BUN 7 mg/dL (7-18); Bilirubin, Total 0.7 mg/dL (0.2-1.0); CO2 26.4 mmol/L (21.0-32.0); CREATININE 0.71 mg/dL (0.55-1.02); Calcium 9.2 mg/dL (8.5-10.1); Chloride 105 mmol/L (98-107); Glucose 95 mg/dL (70-100); Potassium 4.2 mmol/L (3.5-5.1); Sodium 144 mmol/L (136-145); Total Protein 6.6 g/dL (6.4-8.2)
--- NOTE | 2018-09-30 07:15 | DI.RAD_ITS ---
SYMPTOM/DIAGNOSIS: ? SMALL BOWEL OBSTRUCTION,F/U KUB: There is no evidence of free air. Contrast material is noted in the colon down to the level of the rectum. There is no evidence of obstruction. The patient is status post cholecystectomy. There is no evidence of an abdominal or pelvic mass. SUMMARY: No evidence of bowel obstruction.
--- NOTE | 2018-09-30 08:50 | W.PM.PROGNOT ---
Documented by User: TONY Dee 09/30/18 08:55 Date of Service Date of service: 09/30/18 Time of Service: 08:51 Assessment and Plan (1) Small bowel obstruction due to adhesions: Current visit: Yes Status: Acute FLUIDS- Continue IVF DIET- Will progress to soft diet for lunch. PAIN- No pain at this time. ACTIVITY- Continue ambulating in the hallways DISPOSITION- D/C home once tolerating soft diet. Subjective Interval history since last seen: Feeling pretty good today. Tolerated clear liquids last night. Urinating without difficulty. Denies nausea, vomiting or abdominal pain. Denies fevers or chills. She reports ambulating around med/surg frequently. Exam Const General: cooperative, comfortable and no acute distress Orientation: alert and oriented x3 GI Inspection: non-distended Objective Objective Clinical Data: Abnormal lab results 09/30/18 Range/Units 06:25 Anion Gap 12.6 H (3-11) mmol/L Albumin 3.1 L (3.4-5.0) g/dL Vital Signs Temperature 36.1 C L 09/30/18 07:25 Temperature Source Tympanic 09/30/18 07:25 Pulse 63 09/30/18 07:25 Pulse Rhythm Regular 09/30/18 00:07 Respiratory Rate 17 09/30/18 07:25 Respiratory Effort 09/30/18 00:07 Respiratory Depth Normal 09/30/18 00:07 Respiratory Pattern Normal 09/30/18 00:07 Blood Pressure 131/86 09/30/18 07:25 Pulse Oximetry 97 09/30/18 07:25 Oxygen Delivery Method Room Air 09/30/18 07:25 Oxygen Flow Rate 0 09/30/18 07:25 Pain Level 0 09/30/18 07:25 Intake & Output 09/29/18 09/29/18 09/30/18 11:59 23:59 11:59 Intake Total 1000 / 4160 3160 / 4160 902.083 / 902.083 Output Total 600 / 1900 1300 / 1900 900 / 900 Balance 400 / 2260 1860 / 2260 2.083 / 2.083 Weight 98.9 kg 99.6 kg Intake: IV 1000 / 3500 2500 / 3500 902.083 / 902.083 Oral 660 / 660 Output: Urine 600 / 1900 1300 / 1900 900 / 900 Other: Urine Color Yellow Yellow Yellow Urine Appearance Clear Clear Clear Urine Odor Normal Normal Stool Size Large Stool Characteristics Soft Formed Voiding Methods Toilet Toilet Laboratory Results WBC 12.55 k/cumm (4.4-10.8) H 09/29/18 02:10 RBC 5.00 m/cumm (4.00-5.20) 09/29/18 02:10 Hgb 15.1 g/dL (12.0-15.5) 09/29/18 02:10 Hct 43.5 % (36.0-46.0) 09/29/18 02:10 MCV 87.0 fL (80-95) 09/29/18 02:10 MCH 30.2 pg (27.0-33.0) 09/29/18 02:10 MCHC 34.7 g/dL (32.0-36.0) 09/29/18 02:10 RDW 13.7 % (11.7-14.6) 09/29/18 02:10 Plt Count 338 x1000/uL (130-400) 09/29/18 02:10 MPV 9.4 fL (8.0-11.0) 09/29/18 02:10 Immature Gran % 0.2 09/29/18 02:10 Neutrophils % 64.0 09/29/18 02:10 Lymphocytes % 26.7 09/29/18 02:10 Monocytes % 7.5 09/29/18 02:10 Eosinophils % 1.4 09/29/18 02:10 Basophils % 0.2 09/29/18 02:10 Absolute Neutrophils 8.03 k/cumm (1.2-6.7) H 09/29/18 02:10 Absolute Lymphocytes 3.35 k/cumm (1.2-3.4) 09/29/18 02:10 Absolute Monocytes 0.94 k/cumm (0.11-0.7) H 09/29/18 02:10 Absolute Eosinophils 0.18 k/cumm (0.0-0.7) 09/29/18 02:10 Absolute Basophils 0.03 k/cumm (0.0-0.2) 09/29/18 02:10 Sodium 144 mmol/L (136-145) 09/30/18 06:25 Potassium 4.2 mmol/L (3.5-5.1) 09/30/18 06:25 Chloride 105 mmol/L (98-107) 09/30/18 06:25 Carbon Dioxide 26.4 mmol/L (21.0-32.0) 09/30/18 06:25 Anion Gap 12.6 mmol/L (3-11) H 09/30/18 06:25 BUN 7 mg/dL (7-18) 09/30/18 06:25 Creatinine 0.71 mg/dL (0.55-1.02) 09/30/18 06:25 Estimated GFR/1.73 m2 >= 60.00 (mL/min/1.73m2) 09/30/18 06:25 Glucose 95 mg/dL (70-100) 09/30/18 06:25 Calcium 9.2 mg/dL (8.5-10.1) 09/30/18 06:25 Magnesium 1.9 mg/dL (1.8-2.4) 09/29/18 06:10 Total Bilirubin 0.7 mg/dL (0.2-1.0) 09/30/18 06:25 AST 16 U/L (15-37) 09/30/18 06:25 ALT 19 U/L (12-78) 09/30/18 06:25 Alkaline Phosphatase 73 U/L (46-116) 09/30/18 06:25 Troponin I < 0.02 ng/mL (0.00-0.06) 09/29/18 06:10 Total Protein 6.6 g/dL (6.4-8.2) 09/30/18 06:25 Albumin 3.1 g/dL (3.4-5.0) L 09/30/18 06:25 Lipase 59 U/L (73-393) L 09/29/18 02:10 Documented by User: Marques Apple III, DO 09/30/18 09:28 Assessment and Plan (1) Small bowel obstruction due to adhesions: Start date: 09/29/18 Start time: 09:28 Current visit: Yes Status: Acute pt had an abd flat plate done and the contrast is o the colon resolving SBO adv diet as alona poss dc in am
--- NOTE | 2018-09-30 13:37 | PDOC.CMPRO ---
Care Management Progress Note S/O: Brooke was lying in bed with the sun shining in her window. She reported this was the time during her hospitalization where ambulation, visitors and activities became important as she was becoming bored. She reported anticipating more visitors this afternoon. She reported having her IPAD for entertainment as well and reported no further needs at this time. Brooke shared that her diet continues to be advanced and she anticipated staying at [facility] overnight due to moving forward cautiously. She also shared that the locum MD had provided new insights to her situation and she was looking forward to discussing with Dr. Cole. CM will continue to follow. A: 53 year old female admitted to [facility] 09/29/18 for SBO P: Brooke will return home with no additional anticipated services, she will follow up with surgical services, her PCP and plan of care as prescribed. She will transport via private vehicle with her , Iman.
--- NOTE | 2018-09-30 13:40 | CMPROGNOTE_ITS ---
Care Management Progress Note S/O: Brooke was lying in bed with the sun shining in her window. She reported this was the time during her hospitalization where ambulation, visitors and activities became important as she was becoming bored. She reported anticipating more visitors this afternoon. She reported having her IPAD for entertainment as well and reported no further needs at this time. Brooke shared that her diet continues to be advanced and she anticipated staying at [facility] overnight due to moving forward cautiously. She also shared that the locum MD had provided new insights to her situation and she was looking forward to discussing with Dr. Cole. CM will continue to follow. A: 53 year old female admitted to [facility] 09/29/18 for SBO P: Brooke will return home with no additional anticipated services, she will follow up with surgical services, her PCP and plan of care as prescribed. She will transport via private vehicle with her , Iman.
--- NOTE | 2018-09-30 15:34 | CHAPLAIN ---
Brooke is advancing her diet cautiously. Her turn around time to feeling better was quicker this hospitalization, than other times, however her symptoms came on quicker than usual as well and she is not sure if this is a new pattern. She voiced frustration with once again being hospitalized with a complication. While her she has had several visitors and enjoys the company. 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 Her good friend, Rev. Maggie Christina, also an [employer] collaborating supervising physician, is a support person for her. Brooke's partner, Iman, is as well and will likely be up to visit today after work. 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
--- NOTE | 2018-09-30 20:30 | W.PM.PROGNOT ---
Date of Service Date of service: 09/30/18 Time of Service: 20:30 Assessment and Plan (1) Small bowel obstruction due to adhesions: Start date: 09/30/18 Start time: 20:31 Current visit: Yes Status: Acute pt xray this morning showed contrast to the colon distally, +bm advanced diet as alona poss dc in am Subjective Patient reports: no new complaints Interval history since last seen: pt doing well +bm, uo adequate Objective Objective Clinical Data: Abnormal lab results 09/30/18 Range/Units 06:25 Anion Gap 12.6 H (3-11) mmol/L Albumin 3.1 L (3.4-5.0) g/dL Vital Signs Temperature 36.9 C 09/30/18 15:40 Temperature Source Tympanic 09/30/18 15:40 Pulse 70 09/30/18 15:40 Pulse Rhythm Regular 09/30/18 15:46 Respiratory Rate 14 09/30/18 15:40 Respiratory Effort Non-Labored 09/30/18 15:46 Respiratory Depth Normal 09/30/18 15:46 Respiratory Pattern Irregular 09/30/18 15:46 Blood Pressure 151/92 H 09/30/18 15:40 Pulse Oximetry 98 09/30/18 15:40 Oxygen Delivery Method Room Air 09/30/18 15:40 Oxygen Flow Rate 0 09/30/18 15:40 Pain Level 0 09/30/18 15:40 Intake & Output 09/29/18 09/30/18 09/30/18 23:59 11:59 23:59 Intake Total 3160 / 4160 1962.083 / 3202.083 1240 / 3202.083 Output Total 1300 / 1900 2300 / 3250 950 / 3250 Balance 1860 / 2260 -337.917 / -47.917 290 / -47.917 Weight 99.6 kg Intake: IV 2500 / 3500 902.083 / 6974.727 9973 / 1902.083 Oral 660 / 660 1060 / 1300 240 / 1300 Output: Urine 1300 / 1900 2300 / 3250 950 / 3250 Other: Urine Color Yellow Yellow Urine Appearance Clear Clear Urine Odor Normal Normal Comment per pT per pT Stool Size Large Moderate Stool Characteristics Soft Soft Formed Formed Voiding Methods Toilet Toilet Toilet Laboratory Results WBC 12.55 k/cumm (4.4-10.8) H 09/29/18 02:10 RBC 5.00 m/cumm (4.00-5.20) 09/29/18 02:10 Hgb 15.1 g/dL (12.0-15.5) 09/29/18 02:10 Hct 43.5 % (36.0-46.0) 09/29/18 02:10 MCV 87.0 fL (80-95) 09/29/18 02:10 MCH 30.2 pg (27.0-33.0) 09/29/18 02:10 MCHC 34.7 g/dL (32.0-36.0) 09/29/18 02:10 RDW 13.7 % (11.7-14.6) 09/29/18 02:10 Plt Count 338 x1000/uL (130-400) 09/29/18 02:10 MPV 9.4 fL (8.0-11.0) 09/29/18 02:10 Immature Gran % 0.2 09/29/18 02:10 Neutrophils % 64.0 09/29/18 02:10 Lymphocytes % 26.7 09/29/18 02:10 Monocytes % 7.5 09/29/18 02:10 Eosinophils % 1.4 09/29/18 02:10 Basophils % 0.2 09/29/18 02:10 Absolute Neutrophils 8.03 k/cumm (1.2-6.7) H 09/29/18 02:10 Absolute Lymphocytes 3.35 k/cumm (1.2-3.4) 09/29/18 02:10 Absolute Monocytes 0.94 k/cumm (0.11-0.7) H 09/29/18 02:10 Absolute Eosinophils 0.18 k/cumm (0.0-0.7) 09/29/18 02:10 Absolute Basophils 0.03 k/cumm (0.0-0.2) 09/29/18 02:10 Sodium 144 mmol/L (136-145) 09/30/18 06:25 Potassium 4.2 mmol/L (3.5-5.1) 09/30/18 06:25 Chloride 105 mmol/L (98-107) 09/30/18 06:25 Carbon Dioxide 26.4 mmol/L (21.0-32.0) 09/30/18 06:25 Anion Gap 12.6 mmol/L (3-11) H 09/30/18 06:25 BUN 7 mg/dL (7-18) 09/30/18 06:25 Creatinine 0.71 mg/dL (0.55-1.02) 09/30/18 06:25 Estimated GFR/1.73 m2 >= 60.00 (mL/min/1.73m2) 09/30/18 06:25 Glucose 95 mg/dL (70-100) 09/30/18 06:25 Calcium 9.2 mg/dL (8.5-10.1) 09/30/18 06:25 Magnesium 1.9 mg/dL (1.8-2.4) 09/29/18 06:10 Total Bilirubin 0.7 mg/dL (0.2-1.0) 09/30/18 06:25 AST 16 U/L (15-37) 09/30/18 06:25 ALT 19 U/L (12-78) 09/30/18 06:25 Alkaline Phosphatase 73 U/L (46-116) 09/30/18 06:25 Troponin I < 0.02 ng/mL (0.00-0.06) 09/29/18 06:10 Total Protein 6.6 g/dL (6.4-8.2) 09/30/18 06:25 Albumin 3.1 g/dL (3.4-5.0) L 09/30/18 06:25 Lipase 59 U/L (73-393) L 09/29/18 02:10
[2018-10-01 03:25] VITALS: BP 148/88; PULSE 63; RESP 18; TEMP 36.6; O2SAT 100
[2018-10-01 08:15] VITALS: BP 150/99; PULSE 71; RESP 20; TEMP 36.6; O2SAT 99
--- NOTE | 2018-10-01 08:41 | W.PM.DS.N ---
DS: Diagnosis Discharge Diagnosis (1) Small bowel obstruction due to adhesions: Status: Acute Discharge Plan Disposition Patient Disposition: HOME Condition: Good Discharge Details Reason For Visit: SBO Admit Date/Time: 09/29/18 04:45 Admit Provider: Marques Apple III Attending Provider: Marques Apple III Primary Care Provider: Willian Petersen Hospital Course Hospital Course: pt had sbo on admission pt resolved it and alona diet abd xray confirmed movement of contrast to the colon pt well known to us and she understands her condition well Home Meds and New Rx's Prescriptions: Continued citalopram 10 MG tablet 10 mg PO HS RF: 0 acetaminophen 325 MG tablet 2 tab PO Q4H PRN PRNRF: 0 Discontinued cetirizine 10 MG tablet,chewable 10 mg PO HS RF: 0 fluticasone 16 GM spray,suspension 1 spray NS BID RF: 0 Ibuprofen 400 MG tablet 400 mg PO PRN PRNRF: 0 Discharge Instructions Care Plan Goals: pt aware she could need surgery to fu for outpaTIENT DISCUSSION Stand Alone Forms: Nursing Discharge Form Referrals: Verona Cole MD [ [facility] STAFF PHYSICIAN] - (f/u at [facility]) Activity:: Activity as Tolerated Equipment/Supplies:: none Diet:: As Tolerated Discharge Orders Discharge Orders: Discharge Order (Routine); Ordered 10/01/18 Ordered By: Marques Apple III Discharge Data Discharge Comment: pt to Fu with dr Juan DS: Data Vitals/I&O Vitals and I&O: Vital Signs Temperature 36.6 C 10/01/18 03:25 Temperature Source Skin 10/01/18 03:25 Pulse 63 10/01/18 03:25 Pulse Rhythm Regular 09/30/18 23:47 Respiratory Rate 18 10/01/18 03:25 Respiratory Effort 09/30/18 23:47 Respiratory Depth Normal 09/30/18 23:47 Respiratory Pattern Normal 09/30/18 23:47 Blood Pressure 148/88 H 10/01/18 03:25 Pulse Oximetry 100 10/01/18 03:25 Oxygen Delivery Method Room Air 10/01/18 03:25 Oxygen Flow Rate 0 10/01/18 03:25 Pain Level 0 10/01/18 03:25 Comment 10/01/18 03:25 Intake & Output 09/30/18 09/30/1810/01/18 11:59 23:59 11:59 Intake Total 1962.083 / 3202.083 1240 / 3202.083 1100 / 1100 Output Total 2300 / 4250 1950 / 4250 1000 / 1000 Balance -337.917 / -1047.917 -710 / -1047.917 100 / 100 Weight 99.6 kg 97.3 kg Intake: IV 902.083 / 8739.929 0760 / 1902.083 Oral 1060 / 1300 240 / 1300 1100 / 1100 Output: Urine 2300 / 4250 1950 / 4250 1000 / 1000 Other: Urine Color Yellow Pale Yellow Yellow Urine Appearance Clear Clear Clear Urine Odor Normal None Normal Comment per pT in the tiolet Stool Size Moderate Stool Characteristics Soft Formed Voiding Methods Toilet Toilet Toilet [facility] Medical History Small bowel obstruction due to adhesions (Acute) Acute abdominal pain (Acute) Leukocytosis (Acute) Small bowel obstruction (Acute) Hx of small bowel obstruction (Chronic) Anxiety Migraine Rectal cancer Rectal prolapse Surgical History Biopsy of breast Cholecystectomy Colonoscopy - MAC (09/30/16) Colonoscopy - MAC (01/01/17) Colonoscopy - MAC (06/01/18) Partial resection of colon (11/27/16) Vaginal hysterectomy colostomy takedown (10/15/17) left subclavian vein port removal (05/07/18) Family History Mother Dementia Social History household members: spouse housing: house Smoking/Tobacco Use Status: Never alcohol intake: current alcohol intake frequency: a few times a month substance use type: does not use
--- NOTE | 2018-10-01 08:47 | PDOC.CMDIS ---
LACE Index Scoring Tool - Questions: Length of Stay (in days): 3 Acuity (Admit via E.D.?): Yes Comorbidities: Any Tumor E.D. Visits: 4 - Answers: Total Score: 12 Risk of Readmission: High Risk Care Management Discharge Reason for Hospitalization: SBO Discharge Plan: Brooke will return home with no additional anticipated services, she will follow up with surgical services, her PCP and plan of care as prescribed. She will transport via private vehicle with her , Iman. Patient/Family Education Needs: Review discharge instructions, discuss Ask Me Three to ensure patient understanding of self care needs upon discharge.
== END 2018-10-01 09:45 | disposition home or self-care (01) ==
LOC: ER 03:49 → MS 05:42
PROVIDERS: Admitting Provider Surgery; Emergency Provider Student in an Organized Health Care Education/Training Program; PCP Physician Assistant Medical; Visit Provider Surgery
DX: K56.50 Intestinal adhesions [bands], unspecified as to partial versus complete obstruction (principal); D72.829 Elevated white blood cell count, unspecified; Z85.048 Personal history of other malignant neoplasm of rectum, rectosigmoid junction, and anus; Z90.49 Acquired absence of other specified parts of digestive tract
CPT/HCPCS: 36415; 80053; 83690; 96361; 96374; 96375; 99223; 99239; 99285; NC; 74018; 74177; 83735; 84484; 85025; G0378; J1885; J2405; J3490

== ENCOUNTER 2018-11-19 11:22 | Outpatient (CLI) | payer BC, SELFPAY ==
[2018-11-19 12:11] LABS: Abs Immature Grans 0.01 k/cumm (0.0-0.09); Absolute Basophil Count 0.01 k/cumm (0.0-0.2); Absolute Eosinophil Count 0.02 k/cumm (0.0-0.7); Absolute Lymphocyte Count 1.42 k/cumm (1.2-3.4); Absolute Monocyte Count 0.93 k/cumm (0.11-0.7); Basophils % 0.2; Eosinophils % 0.4; HCT 41.8 % (36.0-46.0); HGB 13.9 g/dL (12.0-15.5); Immature Grans % 0.2; Lymphocytes % 29.6; Mean Corp. HGB Concentration 33.3 g/dL (32.0-36.0); Mean Corpuscular Hemoglobin 29.6 pg (27.0-33.0); Mean Corpuscular Volume 88.9 fL (80-95); Monocytes % 19.4; Neutrophils % 50.2; Platelet Count 233 x1000/uL (130-400); RBC Distribution Width 13.2 % (11.7-14.6); White Blood Cell Count 4.79 k/cumm (4.4-10.8)
[2018-11-19 12:18] LABS: ALT 30 U/L (12-78); AST 26 U/L (15-37); Albumin 3.3 g/dL (3.4-5.0); Alkaline Phosphatase 85 U/L (46-116); Anion Gap 6.1 mmol/L (3-11); BUN 7 mg/dL (7-18); Bilirubin, Total 0.3 mg/dL (0.2-1.0); CO2 30.9 mmol/L (21.0-32.0); CREATININE 0.88 mg/dL (0.55-1.02); Chloride 100 mmol/L (98-107); Glucose 100 mg/dL (70-100); Potassium 3.6 mmol/L (3.5-5.1); Sodium 137 mmol/L (136-145); Total Protein 7.6 g/dL (6.4-8.2)
[2018-11-20 13:51] LABS: CEA <0.5 ng/ml
== END 2018-11-19 11:42 ==
PROVIDERS: PCP Physician Assistant Medical; Visit Provider Internal Medicine Hematology & Oncology
DX: C20 Malignant neoplasm of rectum (principal)
CPT/HCPCS: 36415; 80053; 82378; 85025

== ENCOUNTER 2018-12-23 19:59 | Outpatient (REF) | payer BC, SELFPAY ==
[2018-12-23 21:58] LABS: Bacteria Rare HPF (Negative); C & S Indicated? No; Casts Negative LPF (Negative); Crystals Negative HPF (Negative); Epithelial Cells Rare HPF (Negative); Mucus Negative (Negative); Other Cells Negative (Negative); RBC 0-2 (0-2); WBC Negative HPF (0-5)
== END 2018-12-23 20:19 ==
LOC: NCHCN 19:59
PROVIDERS: PCP Physician Assistant Medical; Visit Provider Specialist/Technologist Athletic Trainer
DX: R31.0 Gross hematuria (principal)
CPT/HCPCS: 81015

== ENCOUNTER 2019-01-12 09:53 | Outpatient (CLI) | payer BC, SELFPAY ==
--- NOTE | 2019-01-12 13:57 | DI.MAMMO_ITS ---
SYMPTOMS/DIAGNOSIS: SCREENING, Z12.31, HEALTH MAINTENANCE, Z00.8 MAMMOGRAM: Mammograms were interpreted according to the usual protocol including computer analysis with CAD system, tomosynthesis and C view imaging. The breast tissue is composed of numerous small bilateral fibronodular densities. When compared with the previous examination, again noted is the asymmetric density in the inframedial portion of the right breast which appears unchanged. There are no suspicious calcifications. SUMMARY: No evidence of malignancy. An area of nodularity in the inframedial portion of the right breast appears stable when compared with images dating back to 08/14/17. Category 2. Breast density Category B. MQSA ASSESSMENT OF FINDINGS: Negative with benign findings. Category 2. Patient will receive a letter notifying them of these results. BI-RADS category B. There are scattered areas of fibroglandular density.
== END 2019-01-12 10:13 ==
PROVIDERS: PCP Physician Assistant Medical; Visit Provider Physician Assistant Medical
DX: Z00.00 Encounter for general adult medical examination without abnormal findings (principal); Z12.31 Encounter for screening mammogram for malignant neoplasm of breast; N60.81 Other benign mammary dysplasias of right breast
CPT/HCPCS: 77063; 77067

== ENCOUNTER 2019-02-19 08:11 | Outpatient (CLI) | payer BC, SELFPAY ==
[2019-02-19 09:34] LABS: Hemoglobin A1C 5.6 % (4.5-6.2)
[2019-02-19 10:21] LABS: Cholesterol 221 mg/dL (50-200); HDL Cholesterol 65 mg/dL (40-60); LDL CHOLESTEROL 145 mg/dL (<100); Magnesium 1.7 mg/dL (1.8-2.4); Triglyceride 59 mg/dL (30-150)
[2019-02-22 10:37] LABS: CEA 0.6 ng/ml
== END 2019-02-19 08:31 ==
PROVIDERS: PCP Physician Assistant Medical; Visit Provider Nurse Practitioner Adult Health
DX: C19 Malignant neoplasm of rectosigmoid junction (principal); C20 Malignant neoplasm of rectum; Z00.00 Encounter for general adult medical examination without abnormal findings; E83.42 Hypomagnesemia
CPT/HCPCS: 36415; 80061; 83721; 82378; 83036; 83735

== ENCOUNTER 2019-03-30 15:50 | Outpatient (CLI) | payer BC, SELFPAY ==
[2019-03-31 17:34] LABS: Estradiol <12 pg/ml
[2019-04-01 09:45] LABS: FSH 88.7 mIU/ml
== END 2019-03-30 16:10 ==
PROVIDERS: PCP Physician Assistant Medical; Visit Provider Physician Assistant Medical
DX: E83.42 Hypomagnesemia (principal); N95.1 Menopausal and female climacteric states
CPT/HCPCS: 36415; 82670; 83001; 83735

== ENCOUNTER 2019-05-24 00:15 | Outpatient (CLI) | payer BC, SELFPAY ==
[2019-05-24] MEDS: Breeza Beverage 473 ML BTL PO ×2 (09:15→09:16)
[2019-05-24] MEDS: Omnipaque 350 MG/ML 50 ML BTL PO (09:15)
[2019-05-24 09:16] LABS: Abs Immature Grans 0.01 k/cumm (0.0-0.09); Absolute Basophil Count 0.02 k/cumm (0.0-0.2); Absolute Eosinophil Count 0.32 k/cumm (0.0-0.7); Absolute Lymphocyte Count 1.66 k/cumm (1.2-3.4); Absolute Monocyte Count 0.38 k/cumm (0.11-0.7); Absolute Neutrophil Count 2.45 k/cumm (1.2-6.7); Basophils % 0.4; Eosinophils % 6.6; HCT 39.3 % (36.0-46.0); HGB 13.3 g/dL (12.0-15.5); Immature Grans % 0.2; Lymphocytes % 34.3; Mean Corp. HGB Concentration 33.8 g/dL (32.0-36.0); Mean Corpuscular Hemoglobin 29.8 pg (27.0-33.0); Mean Corpuscular Volume 88.1 fL (80-95); Monocytes % 7.9; Neutrophils % 50.6; Platelet Count 267 x1000/uL (130-400); RBC 4.46 m/cumm (4.00-5.20); RBC Distribution Width 13.1 % (11.7-14.6); White Blood Cell Count 4.84 k/cumm (4.4-10.8)
[2019-05-24 09:35] LABS: ALT 22 U/L (12-78); AST 20 U/L (15-37); Albumin 3.1 g/dL (3.4-5.0); Alkaline Phosphatase 59 U/L (46-116); BUN 11 mg/dL (7-18); Bilirubin, Total 0.4 mg/dL (0.2-1.0); CREATININE 0.71 mg/dL (0.55-1.02); Calcium 8.6 mg/dL (8.5-10.1); Chloride 108 mmol/L (98-107); Glucose 96 mg/dL (70-100); Potassium 3.9 mmol/L (3.5-5.1); Sodium 143 mmol/L (136-145); Total Protein 6.8 g/dL (6.4-8.2)
--- NOTE | 2019-05-24 10:45 | DI.CT_ITS ---
SYMPTOM/DIAGNOSIS; NEOPLASM LG INTESTINE W/RECTUM C19. SMALL BOWEL OBSTRUCTION k56.609 CHEST, ABDOMEN AND PELVIS CT: 05/24/19 CT examination of the chest, abdomen and pelvis was performed with a bolus infusion of 100 cc Omnipaque 350 and ingestion of dilute Barium. The lungs are clear. No mediastinal or hilar adenopathy. Tracheobronchial tree appears intact. No pleural effusion. No axillary or supraclavicular adenopathy. The liver and spleen are unremarkable in appearance. Gallbladder has been surgically removed. There is small hiatal hernia. Pancreas is somewhat heterogeneous in attenuation which is a nonspecific finding and probably unchanged from 09/29/18. No biliary dilatation seen. Abdominal aorta is of normal diameter and no major vascular abnormality is seen. No significant abdominal wall hernia is seen. No significant abdominal or pelvic adenopathy. Appendix not specifically visualized but there is no evidence of appendicitis or diverticulitis. There are anastomotic sutures of the rectosigmoid junction. The patient reportedly has a history of bowel carcinoma. No pelvic mass identified. Mild thickening of presacral tissues noted, unchanged from 09/29/18 CT scan. No bony erosive or destruction lesion identified on these scanned regions of the chest, abdomen or pelvis. CONCLUSION: Stable appearance of rectal/perirectal findings from 09/1818. No evidence of metastatic disease at this time.
[2019-05-24] MEDS: Omnipaque 350 MG/ML 100 ML BTL IJ (11:16)
[2019-05-24] MEDS: Normal Saline Flush 10 ML SYR IVP (11:17)
[2019-05-24 17:10] LABS: Estradiol 30 pg/ml
[2019-05-25 09:38] LABS: CEA 0.5 ng/ml
== END 2019-05-24 00:35 ==
PROVIDERS: PCP Physician Assistant Medical; Visit Provider Nurse Practitioner Adult Health
DX: C19 Malignant neoplasm of rectosigmoid junction (principal); K56.609 Unspecified intestinal obstruction, unspecified as to partial versus complete obstruction; E83.42 Hypomagnesemia; N95.1 Menopausal and female climacteric states
CPT/HCPCS: 74177; 80053; 71260; 82378; 82670; 83735; 85025; J3490; Q9967

== ENCOUNTER 2019-09-29 16:12 | Outpatient (CLI) | payer BC, SELFPAY ==
--- NOTE | 2019-09-29 16:04 | DI.RAD_ITS ---
EXAM: XR CHEST 2V PA LATERAL CLINICAL HISTORY: COUGH RO5 TECHNIQUE: 2D digital imaging was performed. COMPARISON: No exams were available for comparison FINDINGS: The cardiac and mediastinal contours have a normal appearance. The lungs are well inflated and clear . No infiltrate, effusion or pneumothorax is seen. No spine or rib fracture is identified. IMPRESSION: Negative chest x-ray.
[2019-09-29 16:44] LABS: Abs Immature Grans 0.03 k/cumm (0.0-0.09); Absolute Basophil Count 0.01 k/cumm (0.0-0.2); Absolute Eosinophil Count 0.08 k/cumm (0.0-0.7); Absolute Lymphocyte Count 2.59 k/cumm (1.2-3.4); Absolute Monocyte Count 0.68 k/cumm (0.11-0.7); Absolute Neutrophil Count 3.67 k/cumm (1.2-6.7); Basophils % 0.1; Eosinophils % 1.1; HCT 43.1 % (36.0-46.0); HGB 14.6 g/dL (12.0-15.5); Immature Grans % 0.4; Lymphocytes % 36.7; Mean Corp. HGB Concentration 33.9 g/dL (32.0-36.0); Mean Corpuscular Hemoglobin 29.7 pg (27.0-33.0); Mean Corpuscular Volume 87.6 fL (80-95); Mean Platelet Volume 8.8 fL (8.0-11.0); Monocytes % 9.6; Neutrophils % 52.1; Platelet Count 291 x1000/uL (130-400); RBC 4.92 m/cumm (4.00-5.20); White Blood Cell Count 7.06 k/cumm (4.4-10.8)
[2019-09-29 17:34] LABS: ALT 28 U/L (14-59); AST 15 U/L (15-37); Albumin 3.5 g/dL (3.4-5.0); Alkaline Phosphatase 63 U/L (46-116); Anion Gap 6.2 mmol/L (3-11); BUN 10 mg/dL (7-18); Bilirubin, Total 0.2 mg/dL (0.2-1.0); CO2 30.8 mmol/L (21.0-32.0); CREATININE 0.65 mg/dL (0.55-1.02); Calcium 9.2 mg/dL (8.5-10.1); Chloride 104 mmol/L (98-107); Glucose 80 mg/dL (74-106); Potassium 3.6 mmol/L (3.5-5.1); Sodium 141 mmol/L (136-145); Total Protein 7.1 g/dL (6.4-8.2)
[2019-10-01 11:44] LABS: Estradiol 22 pg/mL (See Note)
[2019-10-01 11:57] LABS: CEA <0.5 ng/mL (See Note)
== END 2019-09-29 16:32 ==
PROVIDERS: PCP Physician Assistant Medical; Visit Provider Internal Medicine Hematology & Oncology
DX: C20 Malignant neoplasm of rectum (principal); R05 Cough; E83.42 Hypomagnesemia; N95.1 Menopausal and female climacteric states
CPT/HCPCS: 36415; 80053; 71046; 82378; 82670; 83735; 85025

== ENCOUNTER 2020-01-31 02:59 | Outpatient (CLI) | payer MEDICARE, OTHER, SELFPAY ==
[2020-01-31 16:10] LABS: Abs Immature Grans 0.01 k/cumm (0.0-0.09); Absolute Basophil Count 0.02 k/cumm (0.0-0.2); Absolute Eosinophil Count 0.16 k/cumm (0.0-0.7); Absolute Lymphocyte Count 2.02 k/cumm (1.2-3.4); Absolute Monocyte Count 0.57 k/cumm (0.11-0.7); Absolute Neutrophil Count 4.92 k/cumm (1.2-6.7); Basophils % 0.3; Eosinophils % 2.1; HCT 42.3 % (36.0-46.0); HGB 14.3 g/dL (12.0-15.5); Immature Grans % 0.1 %; Lymphocytes % 26.2; Mean Corp. HGB Concentration 33.8 g/dL (32.0-36.0); Mean Corpuscular Hemoglobin 29.9 pg (27.0-33.0); Mean Corpuscular Volume 88.3 fL (80-95); Mean Platelet Volume 9.2 fL (8.0-11.0); Monocytes % 7.4; Neutrophils % 63.9; Platelet Count 318 x1000/uL (130-400); RBC 4.79 m/cumm (4.00-5.20); RBC Distribution Width 12.7 % (11.7-14.6)
[2020-01-31 16:41] LABS: ALT 27 U/L (14-59); AST 20 U/L (15-37); Albumin 3.6 g/dL (3.4-5.0); Alkaline Phosphatase 66 U/L (46-116); Anion Gap 9.7 mmol/L (3-11); BUN 11 mg/dL (7-18); Bilirubin, Total 0.4 mg/dL (0.2-1.0); CO2 28.3 mmol/L (21.0-32.0); CREATININE 0.72 mg/dL (0.55-1.02); Calcium 9.3 mg/dL (8.5-10.1); Chloride 106 mmol/L (98-107); Glucose 99 mg/dL (74-106); Potassium 3.5 mmol/L (3.5-5.1); Sodium 144 mmol/L (136-145); Total Protein 7.3 g/dL (6.4-8.2)
[2020-02-02 09:01] LABS: CEA <0.5 ng/mL (See Note)
== END 2020-01-31 03:19 ==
PROVIDERS: PCP Physician Assistant Medical; Visit Provider Internal Medicine Hematology & Oncology
DX: C20 Malignant neoplasm of rectum (principal)
CPT/HCPCS: 36415; 80053; 82378; 85025

== ENCOUNTER 2020-05-08 21:19 | Outpatient (REF) | payer MEDICARE, OTHER, SELFPAY ==
[2020-05-10 18:15] LABS: SARS-CoV-2 RNA Undetected (Undetected); SARS-CoV-2 Specimen Source Nasopharynx
== END 2020-05-08 21:39 ==
LOC: NCHCN 21:19
PROVIDERS: Visit Provider Nurse Practitioner Family
DX: Z03.818 Encounter for observation for suspected exposure to other biological agents ruled out (principal)
CPT/HCPCS: U0003

== ENCOUNTER 2020-06-16 04:33 | Outpatient (CLI) | payer MEDICARE, OTHER, SELFPAY ==
--- NOTE | 2020-06-16 16:04 | DI.MAMMO_ITS ---
EXAM: MAMMO SCREENING CLINICAL HISTORY: SCREENING, [facility] MAINTENANCE, Z00.8 TECHNIQUE: Mammograms were interpreted according to the usual protocol including computer analysis w [employer] Digital CAD system, tomosynthesis and C-view imaging. COMPARISON: 2010 through 2018 FINDINGS: The breasts are composed of scattered fibroglandular densities, Breast Density category B. No suspicious masses or suspicious microcalcifications are seen. A biopsy marker clip is noted in th e left breast. No skin thickening or abnormal axillary lymph nodes are seen. There has been no significant change from prior exams. IMPRESSION: BI-RADS Category 1, Negative mammogram Yearly screening mammography is recommended. Breast Density - Category B, scattered fibroglandular densities. A negative radiographic report should not delay biopsy if a dominant or clinically suspicious mass is present. Up to ten percent of cancers are not identified on mammography. A negative report may reinforce clinical impression. Adenosis and dense breasts may obscure an underlying neoplasm. False positive reports average 6 to 10%. Patient will receive a letter notifying them of these results.
== END 2020-06-16 04:53 ==
PROVIDERS: PCP Physician Assistant Medical; Visit Provider Physician Assistant Medical
DX: Z12.31 Encounter for screening mammogram for malignant neoplasm of breast (principal); R92.2 Inconclusive mammogram
CPT/HCPCS: 77063; 77067

== ENCOUNTER 2020-06-29 01:14 | Outpatient (CLI) | payer MEDICARE, OTHER, SELFPAY ==
--- NOTE | 2020-06-29 | DI.CT_ITS ---
EXAM: CT CHEST/ABD/PEL W TECHNIQUE: Examination of the chest, abdomen, and pelvis was performed with intravenous infusion of 100 cc of Omnipaque 350 and ingestion dilute barium. Patient reportedly has a history of rectal car cinoma, current examination is compared with prior study of May 24, 2019. COMPARISON: CT CT CHEST/ABD/PEL W from 05/24/2019 FINDINGS: The lungs are clear. No pleural effusion. No evidence of pulmonary embolic disease. No thoracic aort ic dissection or aneurysm. Major branches of the thoracic aorta appear normal. No pleural effusion. No mediastinal or hilar adenopathy. Tracheobronchial tree appears intact. No focal hepatic or renal abnormality seen. Prior cholecystectomy, bile ducts are CT normal. Pancrea s is unremarkable. Spleen is unremarkable in appearance. No abdominal aortic aneurysm or dissection. Major branches of the abdominal aorta appear normal. No a bdominal or pelvic adenopathy. Appendix not visualized, presumed prior appendectomy.. No significan t abdominal wall hernia. No focal bowel pathology. Prior rectal anastomosis noted with associated presacral soft tissue thickening, stable from prior st udy. No pelvic adenopathy seen. IMPRESSION: No evidence of metastatic disease in a patient with a history of prior colon carcinoma. Stable appearance of presacral soft tissue thickening, presumably postsurgical. RADIATION DOSE DELIVERED: LINK-TO-SR Total DLP 2,053.6mGy.cm Total DLP DATA REPOSITORY: All CT scans at this facility are submitted to the National Radiology Data Registry (NRDR) Dose Index Registry (DIR) with the [employer] (ACR). RADIATION OPTIMIZATION: All CT scans at this facility use at least one of these dose optimization te chniques: automated exposure control; mA and/or kV adjustment per patient size (includes targeted exa ms where dose is matched to clinical indication); or iterative reconstruction.
[2020-06-29 09:10] LABS: Abs Immature Grans 0.02 10^3/uL (0.0-0.06); Absolute Basophil Count 0.04 10^3/uL (0.0-0.2); Absolute Eosinophil Count 0.21 10^3/uL (0.0-0.7); Absolute Lymphocyte Count 1.97 10^3/uL (1.2-3.4); Absolute Monocyte Count 0.45 10^3/uL (0.1-0.8); Absolute Neutrophil Count 3.14 10^3/uL (1.2-6.7); Basophils % 0.7; Eosinophils % 3.6; HCT 41.5 % (36.0-46.0); HGB 13.7 g/dL (11.2-15.7); Immature Grans % 0.3; Lymphocytes % 33.8; MCH 29.5 pg (27.0-33.0); MCV 89.2 fL (80-95); MPV 9.1 fL (8.0-11.0); Monocytes % 7.7; Neutrophils % 53.9; Nucleated RBC 0 %; Platelet Count 274 10^3/uL (130-400); RBC 4.65 10^6/uL (3.93-5.22); RDW 12.5 % (11.7-14.6); RDW-SD 40.6 fL; WBC 5.83 10^3/uL (4.4-10.8)
[2020-06-29 09:27] LABS: ALT 37 U/L (14-59); AST 23 U/L (15-37); Albumin 3.2 g/dL (3.4-5.0); Alkaline Phosphatase 72 U/L (46-116); Anion Gap 5.3 mmol/L (3-11); BUN 15 mg/dL (7-18); Bilirubin, Total 0.3 mg/dL (0.2-1.0); CO2 29.7 mmol/L (21.0-32.0); CREATININE 0.84 mg/dL (0.55-1.02); Calcium 9.1 mg/dL (8.5-10.1); Chloride 105 mmol/L (98-107); Glucose 84 mg/dL (74-106); Potassium 3.7 mmol/L (3.5-5.1); Sodium 140 mmol/L (136-145)
[2020-06-29] MEDS: Omnipaque 350 MG/ML 100 ML BTL IV (10:03)
[2020-06-29 10:21] LABS: Hemoglobin A1C 5.5 % (<5.7)
[2020-06-29] MEDS: Normal Saline - Diluent 50 ML VIAL IV (10:23)
[2020-06-29] MEDS: Normal Saline Flush 10 ML SYR IVP (10:33)
[2020-06-29 10:45] LABS: Calculated LDL 134 mg/dL (<100); Cholesterol 210 mg/dL (<200); HDL Cholesterol 62 mg/dL (40-60); TSH (W/Ref FT4) 1.43 uIU/mL (0.36-3.74); Triglyceride 70 mg/dL (<150)
[2020-06-29 18:19] LABS: CEA 0.5 ng/mL (See Note)
== END 2020-06-29 01:34 ==
PROVIDERS: PCP Physician Assistant Medical; Visit Provider Nurse Practitioner Adult Health
DX: Z85.048 Personal history of other malignant neoplasm of rectum, rectosigmoid junction, and anus (principal); E78.00 Pure hypercholesterolemia, unspecified; R79.89 Other specified abnormal findings of blood chemistry; Z13.6 Encounter for screening for cardiovascular disorders
CPT/HCPCS: 74177; 80053; 80061; 71260; 82378; 83036; 84443; 85025; J3490

== ENCOUNTER 2020-07-03 15:09 | Outpatient (CLI) | payer MEDICARE, OTHER, SELFPAY ==
--- NOTE | 2020-07-03 13:25 | DI.RAD_ITS ---
EXAM: XR KNEE LT 4V AP,LAT,LEONILA,PAT CLINICAL HISTORY: L knee pain. TECHNIQUE: 2D digital imaging was performed. COMPARISON: CR XR CHEST 2V PA LATERAL from 09/29/2019 FINDINGS: There are mild degenerative changes of the left knee characterized by periarticular spurring of the p osterior patella. The joint spaces are otherwise well maintained. Bones are normally mineralized. The soft tissues are unremarkable. IMPRESSION: Mild degenerative changes of the left knee. DATA REPOSITORY: RADIATION DOSE DELIVERED:
== END 2020-07-03 15:29 ==
PROVIDERS: PCP Physician Assistant Medical; Referring Provider Physician Assistant Medical; Visit Provider Student in an Organized Health Care Education/Training Program
DX: M17.12 Unilateral primary osteoarthritis, left knee (principal); M76.892 Other specified enthesopathies of left lower limb, excluding foot; M25.561 Pain in right knee
CPT/HCPCS: 99214; 73564

== ENCOUNTER 2021-01-12 02:28 | Outpatient (CLI) | payer MEDICARE, OTHER, BC, SELFPAY ==
[2021-01-12 09:01] LABS: Abs Immature Grans 0.02 10^3/uL (0.0-0.06); Absolute Basophil Count 0.03 10^3/uL (0.0-0.2); Absolute Eosinophil Count 0.21 10^3/uL (0.0-0.7); Absolute Lymphocyte Count 1.87 10^3/uL (1.2-3.4); Absolute Monocyte Count 0.39 10^3/uL (0.1-0.8); Absolute Neutrophil Count 3.75 10^3/uL (1.2-6.7); Basophils % 0.5; Eosinophils % 3.3; HCT 41.6 % (36.0-46.0); HGB 13.9 g/dL (11.2-15.7); Immature Grans % 0.3; Lymphocytes % 29.8; MCHC 33.4 % (32.0-36.0); MCV 89.7 fL (80-95); MPV 9.2 fL (8.0-11.0); Monocytes % 6.2; Neutrophils % 59.9; Nucleated RBC 0 %; Platelet Count 260 10^3/uL (130-400); RBC 4.64 10^6/uL (3.93-5.22); RDW 12.4 % (11.7-14.6); RDW-SD 40.9 fL; WBC 6.27 10^3/uL (4.4-10.8)
[2021-01-12 09:13] LABS: ALT 20 U/L (14-59); AST 14 U/L (15-37); Albumin 3.4 g/dL (3.4-5.0); Alkaline Phosphatase 59 U/L (46-116); Anion Gap 6.4 mmol/L (3-11); BUN 12 mg/dL (7-18); Bilirubin, Total 0.5 mg/dL (0.2-1.0); CO2 29.6 mmol/L (21.0-32.0); CREATININE 0.8 mg/dL (0.55-1.02); Chloride 104 mmol/L (98-107); Glucose 94 mg/dL (74-106); Potassium 3.6 mmol/L (3.5-5.1); Sodium 140 mmol/L (136-145); Total Protein 7.3 g/dL (6.4-8.2)
[2021-01-12 17:36] LABS: CEA 0.5 ng/mL (See Note)
== END 2021-01-12 02:29 | disposition home or self-care (01) ==
PROVIDERS: Visit Provider Nurse Practitioner Adult Health
DX: C20 Malignant neoplasm of rectum (principal)
CPT/HCPCS: 36415; 80053; 82378; 85025

== ENCOUNTER 2021-02-21 16:14 | Outpatient (REF) | payer BC, MEDICARE, SELFPAY ==
[2021-02-21 16:24] LABS: Anion Gap 7.7 mmol/L (3-11); BUN 7 mg/dL (7-18); CO2 28.3 mmol/L (21.0-32.0); CREATININE 0.7 mg/dL (0.55-1.02); Calcium 9.1 mg/dL (8.5-10.1); Chloride 105 mmol/L (98-107); Glucose 87 mg/dL (74-106); Potassium 4.7 mmol/L (3.5-5.1); Sodium 141 mmol/L (136-145)
== END 2021-02-21 16:15 | disposition home or self-care (01) ==
LOC: NCHCN 16:14
PROVIDERS: PCP Physician Assistant Medical; Visit Provider Physician Assistant Medical
DX: I10 Essential (primary) hypertension (principal)
CPT/HCPCS: 80048

== ENCOUNTER 2021-03-16 08:16 | Day surgery (SDC) | payer BC, MEDICARE, SELFPAY ==
[2021-03-16 08:36] VITALS: BP 149/90; PULSE 77; RESP 16; TEMP 37.1; O2SAT 100
--- NOTE | 2021-03-16 08:57 | W.ANESPRE ---
General Info Date of Service Date Performed: 03/16/21 Height: 5 ft 6.93 in Weight: 96.3 kg Body Mass Index (BMI): 33.3 Surgical Procedure: Operation Date: 03/16/21 09:05 Proposed Procedures Side Surgeon el Perez, DO Meds Allergies and Home Medications Allergies Allergy/AdvReac Type Severity Reaction Status Date / Time latex Allergy Mild Skin Rash Unverified 03/15/21 10:22 Opioids - Morphine Analogues AdvReac Severe N/V/Dizzine Unverified 03/15/21 10:22 ss Home Medication Medication Instructions Recorded acetaminophen 2 tab PO Q4H PRN PRN 12/31/16 cetirizine 10 mg tablet 10 mg PO DAILY 07/03/20 estradiol 1 mg tablet 1 mg PO DAILY 07/03/20 lisinopril 5 mg tablet 5 mg PO DAILY 07/03/20 budesonide 0.25 mg/2 mL suspension 0.25 mg INHALATION BID 02/02/21 for nebulization dicyclomine 10 mg capsule 10 mg PO BID 02/02/21 fluticasone propionate 50 1 spray INTRANASAL DAILY 02/02/21 mcg/actuation nasal spray,suspension bisacodyl 5 mg tablet,delayed 5 mg PO ONCE #4 tab 03/13/21 release polyethylene glycol 3350 17 17 g PO ONCE #238 g 03/13/21 gram/dose oral powder Current Visit Medications: Current Medications Generic Name Dose Route Start Last Admin Trade Name Freq PRN Reason Stop Dose Admin Hyoscyamine Sulfate 0.125 mg 03/15/21 21:06 Hyoscyamine 0.125 Mg Sl/Oral/Chew SL DIRECTED PRN Ringer's Solution 1,000 mls @ 80 mls/hr 03/16/21 06:00 IV 04/14/21 23:59 INFUSION ON LICENSE OF [facility] IV Miscellaneous Supplies 1 each 03/16/21 06:00 Iv Access IV 04/14/21 23:59 DIRECTED FRITZ Ondansetron HCl 4 mg 03/15/21 21:06 Ondansetron 4 Mg/2 Ml Vial IVP Q4H PRN PRN Nausea / Vomiting Sodium Chloride 0 ml 03/16/21 06:00 Normal Saline Flush 10 Ml Syr IV 04/14/21 23:59 PRN PRN Sodium Chloride 0 ml 03/16/21 06:00 Normal Saline 10 Ml Vial IJ 04/14/21 23:59 DIRECTED PRN Sterile Water 0 ml 03/16/21 06:00 Water,Injection,Sterile 10 Ml Vial IJ 04/14/21 23:59 DIRECTED PRN PFSH Active Problems Active Problems: Problem Status Onset Code GI bleed K92.2 Hypomagnesemia E83.42 Rectal cancer C20 Nausea and vomiting R11.2 Hypokalemia E87.6 Ileus K56.7 Acute abdominal pain R10.9 Internal derangement of right knee M23.91 Tendinitis of left quadriceps tendon M76.892 Small bowel obstruction due to adhesions K56.50 Acute abdominal pain R10.9 Leukocytosis D72.829 Small bowel obstruction K56.69 Medical History Medical History Acute abdominal pain Anxiety Hx of small bowel obstruction Hypertension Internal derangement of right knee Leukocytosis Migraine Rectal cancer treated with partial colectomy (oct 2017) and radiation Rectal prolapse Small bowel obstruction Small bowel obstruction due to adhesions Tendinitis of left quadriceps tendon Tubular adenoma of colon (09/30/16) invasive adenocarcinoma arising in a tubular adenoma. Surgical History Surgical History Biopsy of breast Cholecystectomy Colonoscopy - MAC (09/30/16) Colonoscopy - MAC (01/01/17) Colonoscopy - MAC (06/01/18) colostomy takedown (10/15/17) left subclavian vein port removal (05/07/18) Partial resection of colon (11/27/16) with colostomy, reversal 10/15/17 Vaginal hysterectomy Tobacco Smoking/Tobacco Use Status: Never Alcohol Alcohol Intake: current Alcohol intake frequency: a few times a month Substance Use Substance use: Never Substance use type: does not use Vital Signs and Lab Results Vital Signs Most Recent Vital Signs in EMR: Most Recent Vital Signs Temp Pulse Resp BP Pulse Ox 37.1 C 77 16 149/90 H 100 03/16/21 08:36 03/16/21 08:36 03/16/21 08:36 03/16/21 08:36 03/16/21 08:36 Lab Results Blood Type / Crossmatch: No Data to Display Complete Blood Count: No Data to Display Complete Metabolic Panel: Sodium Level 141 mmol/L (136-145) 02/21/21 08:15 02/21/21 Potassium Level 4.7 mmol/L (3.5-5.1) 02/21/21 08:15 02/21/21 Chloride Level 105 mmol/L (98-107) 02/21/21 08:15 02/21/21 Carbon Dioxide Level 28.3 mmol/L (21.0-32.0) 02/21/21 08:15 02/21/21 Blood Urea Nitrogen 7 mg/dL (7-18) 02/21/21 08:15 02/21/21 Creatinine 0.7 mg/dL (0.55-1.02) 02/21/21 08:15 02/21/21 Calcium Level 9.1 mg/dL (8.5-10.1) 02/21/21 08:15 02/21/21 Glucose Level 87 mg/dL (74-106) 02/21/21 08:15 02/21/21 Liver Function Panel: No Data to Display Coagulation Panel: No Data to Display Cardiac Panel: No Data to Display Arterial Blood Gas: No Data to Display Venous Blood Gas: No Data to Display Pancreas Panel: No Data to Display Thyroid Panel: No Data to Display Infectious Disease: No Data to Display Blood Cultures: No Data to Display Toxicology Panel: No Data to Display Imaging and Studies Imaging and Studies Pulmonary Function Summary: 05/03/2016: IMPRESSION: No evidence of obstructive or restrictive lung disease. Normal pulmonary function study. No post-bronchodilator testing was carried out. When this study was compared to previous one from 01/14/11, the patient's diffusion capacity has been stable. FVC has declined by 300 cc's. FEV1 has declined by 250 cc's. Anesthesia Assessment and Plan Anesthesia History Personal History: No History of Anesthesia Complications Family History: No Family History of Anesthesia Complications Exercise Tolerance Exercise Tolerance: Metabolic Equivalents>4 Pertinent Negatives Pertinent Negatives: No Symptoms of GERD, No Major Cardiovascular Symptoms or Complaints and No Major Pulmonary Symptoms or Complaints Cardiac & Pulmonary Exam Cardiac Exam: Normal S1/S2 Heart Sounds Pulmonary Exam: Clear Bilateral Breath Sounds Airway Exam Known Difficult Airway: No Mallampati Class: 3 Mouth Opening: Normal (> 3cm) Thyromental Distance: Greater than 3 cm Neck Range of Motion: Full ROM Neck Circumference: Normal Teeth Condition: Normal Dentition ASA Classification ASA Score: ASA 3 Emergency Case?: No NPO Status NPO Status: NPO Clears >2 hours, Solids >8 hours Anesthesia Plan Resuscitation Status: Full Code Anesthesia Technique: General Anesthesia Airway Planned: Natural Airway Monitors Used: Standard Monitors
[2021-03-16] MEDS: Lactated Ringers 1,000 ML 80 ML IV (09:07)
[2021-03-16 09:16] VITALS: BMI 33.3
--- NOTE | 2021-03-16 09:23 | PGE_ITS ---
Date of Service Date of service: 03/16/21 Time of Service: 09:23 Assessment and Plan Assessment and plan (1) Rectal cancer: Status: Acute (2) Small bowel obstruction due to adhesions: Status: Acute Assessment and plan: -labs reviewed. hgb and CEA are WNL. -oncology notes from [facility] reviewed. -pt is planning laprascopic diagnostic and possible lysis of adhesions at [facility]. -last scope was 2018: After informed consent was obtained the patient was taken to the endoscopy suite and placed in the left decubitus position. Monitors were applied and a time-out was done. The patient's name, date of , procedure type, allergies to medications, DVT prophylaxis, and metal in her body were all reviewed. The patient was then sedated and once sedated and comfortable a rectal exam was done. External exam was normal. Internal exam revealed normal sphincter tone and no palpable masses. The scope was then introduced and advanced to the cecum without difficulty. The TI and appendiceal orifice were identified. There was a diverticulum noted in the cecum. The scope was then retracted and just in the proximal ascending colon a small polyp was identified and removed with forceps. The scope was then retracted over 20 minutes, all the way back into the rectum. No other polyps were identified. The anastomosis was noted and looked fine. There was some mild narrowing but that was it. There was also some inflammation noted in the rectum but no active bleeding. The scope was retroflexed and no internal hemorrhoids were noted. The scope was straightened and removed. The patient was woken up and taken [facility] in stable condition. CT 07/02 The lungs are clear. No pleural effusion. No evidence of pulmonary embolic disease. No thoracic aortic dissection or aneurysm. Major branches of the thoracic aorta appear normal. No pleural effusion. No mediastinal or hilar adenopathy. Tracheobronchial tree appears intact. No focal hepatic or renal abnormality seen. Prior cholecystectomy, bile ducts are CT normal. Pancreas is unremarkable. Spleen is unremarkable in appearance. No abdominal aortic aneurysm or dissection. Major branches of the abdominal aorta appear normal. No abdominal or pelvic adenopathy. Appendix not visualized, presumed prior appendectomy.. No significant abdominal wall hernia. No focal bowel pathology. Prior rectal anastomosis noted with associated presacral soft tissue thickening, stable from prior study. No pelvic adenopathy seen. IMPRESSION: No evidence of metastatic disease in a patient with a history of prior colon carcinoma. Stable appearance of presacral soft tissue thickening, presumably postsurgical. Plan 03/16:Colonscopy Risks: Informed consent is obtained for the procedural (explained in simple layman's terms that the pt and/or family could understand) explaining risks vs benefits and alternatives to the procedure and consequences if we do not do the procedure and need/rational for the procedure. Risks include but are not limited to:bleeding, infection, perforation of colon. This would necessitate emergency surgery to repair the damage w/ possible ostomy; and other associated complications w/ the required surgery. Also complications of anesthesia including aspiration,LA/CVA/. Objective Last Vital Signs Temp 37.1 C 03/16/21 08:36 Pulse 77 03/16/21 08:36 Resp 16 03/16/21 08:36 BP 149/90 H 03/16/21 08:36 Pulse Ox 100 03/16/21 08:36
--- NOTE | 2021-03-16 09:52 | BOWEL_PTH ---
PATIENT: Brooke Irvin LOC: [facility] U#:[id number] AGE/SX: 55/F ROOM: RE03/16/[address]: Winnie Perez : 1965 BED: DIS: 03/16/2021 SPEC #: [id number] RECD: 03/16/21 12:15 STATUS: MELANIA RE #: [id number] LYUDMILA: 03/16/21 09:[address]: Winnie Perez DEPT: Surgical Specimen RECD BY: Erica Jones ENTERED: 03/16/21 12:16 SP TYPE: Bowel OTHR DR: Willian Petersen Tissues: 1 - BIOPSY BOWEL 2 - BIOPSY BOWEL 3 - BIOPSY BOWEL Procedures: GROSS AND MICRO LEVEL 4 Comments: [id number]
[2021-03-16 10:05] VITALS: BP 113/70; PULSE 77; RESP 16; TEMP 36.5; O2SAT 100
--- NOTE | 2021-03-16 10:10 | ROE_ITS ---
Date of service: 03/16/21 Time of Service: 10:10 Operative Note Operative Note DATE OF PROCEDURE: 03/16/21 PRE-OP DIAGNOSIS: History of low-lying colon cancer. Partial small bowel obstructions POST-OP DIAGNOSIS: same SURGEON: Winnie Perez ANESTHESIA TYPE: General:No Airway Refer to Anesthesia Record ESTIMATED BLOOD LOSS: 0 PATHOLOGY: other COMPLICATIONS: None Patient was transported to: same day Procedure Description: After informed consent was obtained the patient was taken to the procedure room and placed in a left decubitous position. Monitors were applied and a time out was done. The patients name, date of , procedure, allergies to medications and metal in their body was reviewed. The patient was then sedated. Once sedated and comfortable a rectal exam was done. External exam was normal. Internal exam revealed a normal sphincter tone and no palpable masses. The scope was then introduced and retrofelexed. no internal hemorrhoids were identified. The scope was then advanced to the cecum w/out difficulty. The TI and appendiceal orifice were identified. The prep was good. The scope was then slowly retracted over 10 minutes back into the rectum. A biopsy was taken at 30 cm in the sigmoid colon. This area of the colon did not have any radiation or was not involved in the previous surgery. It is soft, pliable with normal vascular pattern. She has had previous rectal radiation and colon resection for low-lying rectal cancer with a diverting ileostomy. There is definitely a narrowing at the anastomosis- however, Im not convinced that this is the source of her bowel problems. The anastomosis is about 5 cm. The tissues show changes consistent with previous radiation. There is no signs of any active inflammation/infection. Biopsies were taken in the rectum and at the anast omosis. There is no signs of any recurrence of the cancer. The anastomosis definitely is narrowed- about 30% loss of area. The scope is easily passes through, I do not feel it requires dilation at this time, but it is narrowed compared to the caliber of the rest of the bowel. The anastomosis and the rectal tissues have a woody feel to them. Vascular pattern has the typical post radiation appearance. the rest of the colon appears normal. The cecum was achieved 80 cm because of her prior colon resection. There is no signs of diverticula or polyps. The scope was removed and the patient was woken up and taken back to Same day surgery in stable condition. The patient tolerated the procedure well and there were no immediate complications. Follow up: The patient should follow up in 1 years unless they develop changes in bowel habits or other new gastrointestinal complaints.
--- NOTE | 2021-03-16 10:18 | PDOC.DSDIS_ITS ---
Discharge Plan Disposition Patient Disposition: HOME Condition: Good Discharge Details Reason For Visit: HX OF RECTAL CA Attending Provider: Winnie Perez Primary Care Provider: Willian Petersen Home Meds and New Rx's Prescriptions: Discontinued bisacodyl [Dulcolax (bisacodyl)] 5 mg tablet,delayed release (DR/EC) 5 mg PO ONCE Qty: 4 RF: 0 polyethylene glycol 3350 17 gram/dose powder 17 g PO ONCE Qty: 238 RF: 0 No Action lisinopril 5 mg tablet 5 mg PO DAILY RF: 0 cetirizine 10 mg tablet 10 mg PO DAILY RF: 0 estradiol 1 mg tablet 1 mg PO DAILY RF: 0 dicyclomine 10 mg capsule 10 mg PO BID RF: 0 budesonide [Pulmicort] 0.25 mg/2 mL suspension for nebulization 0.25 mg inhalation BID RF: 0 fluticasone propionate [Flonase Allergy Relief] 50 mcg/actuation s pray,suspension 1 spray intranasal DAILY RF: 0 acetaminophen 325 MG tablet 2 tab PO Q4H PRN PRNRF: 0 Discharge Instructions Additional Instructions: [facility] Colonoscopy Post- Op Instructions Instructions for Everyone who is given Anesthesia: For your safety, please do the following for the next twenty-four (24) hours: *Do Not operate a motor vehicle (car, truck, motorcycle, etc.) *Do Not drink alcoholic beverages or use any recreational drugs for the first 24 hours or while taking pain medications. The medications in your body may have a reaction that can be dangerous. *Do Not make any important decisions or sign any important papers. Findings: no signs of recurrent cancer mild narrowing of anastomosis - avoid constipation. fluids- 10- 12 glasses a day. Miralax as needed. Follow up: 1 years time 1. No lifting over 20 pounds or strenuous activity for the first 24 hours after your procedure. After 24 hours there are no restrictions on your activity but you may feel fatigued for a few days. 2. After you arrive home you may have a light meal and return to your normal diet as you can tolerate it without feeling sick to your stomach. 3. You may have a bloated, gaseous feeling in your belly (abdomen) after a colonoscopy. Passing gas and belching will help. Walking or lying down on your left side with your knees flexed may relieve the discomfort. Call the office at [phone] (Office) or [phone] (Hospital) right away if you notice any of the following: a.Vomiting of blood or ?coffee ground stools?. b.Rectal bleeding 1Tbsp, blood clots or continuous bleeding. c.Severe belly (abdominal) pain. d.A hard distended belly (abdomen) and an inability to pass gas. 4. Please don?t expect to have a normal BM (bowel movement) for 2-3 days after your procedure. 5. If there are questions regarding the findings of your procedure, please contact your doctor 6. If you are unable to contact your doctor with a problem, contact the hospital at [phone]. 7. Continue all your regular medications unless directed otherwise. I understand the above instructions and have no questions. Signature of Patient or Adult Escort Name of Responsible Adult Escort Signature of Nurse Date/Time Activity:: see above Diet:: see above Discharge Orders Discharge Orders: Discharge Order (Routine); Ordered 03/15/21 Ordered By: Winnie Perez DS: Diagnosis Discharge Diagnosis (1) Rectal cancer: Status: Acute (2) Small bowel obstruction due to adhesions: Status: Acute (3) Intra-abdominal adhesions: Status: Acute
[2021-03-16 10:39] VITALS: BP 164/95; PULSE 59; RESP 17; TEMP 36.7; O2SAT 100
--- NOTE | 2021-03-16 10:49 | W.ANESPOSTOP ---
Postoperative Evaluation Date, Time and Location Date Performed: 03/16/21 Time Performed: 10:49 Patient Location: Day Surgery Unit Vital Signs Most Recent Imported Vital Signs: Most Recent Vital Signs Temp Pulse Resp BP Pulse Ox 36.7 C 59 L 17 164/95 H 100 03/16/21 10:39 03/16/21 10:39 03/16/21 10:39 03/16/21 10:39 03/16/21 10:39 Pain Score Most Recent Pain Score: Most Recent Pain Score Pain Level 0 03/16/21 10:39 Assessment Mental Status: Awake (Alert & Oriented to Patient Baseline) Airway and Respiratory Function: Patent airway with normal (patient baseline) respiratory exam Cardiovascular Function: Hemodynamically Stable Hydration Status: Adequately Hydrated Nausea & Vomiting: No Nausea or Vomiting Pain: Pt. Denies Any Pain Peripheral Nerve Block: Patient did not receive a nerve block
== END 2021-03-16 11:17 | disposition home or self-care (01) ==
PROVIDERS: PCP Physician Assistant Medical; Visit Provider Surgery
PROC: 0DJD8ZZ Inspection of Lower Intestinal Tract, Via Natural or Artificial Opening Endoscopic (ICD-10-PCS; CPT 45378; principal; 2021-03-16 09:00)
DX: Z08 Encounter for follow-up examination after completed treatment for malignant neoplasm (principal); K63.89 Other specified diseases of intestine; K56.51 Intestinal adhesions [bands], with partial obstruction; Z85.048 Personal history of other malignant neoplasm of rectum, rectosigmoid junction, and anus
CPT/HCPCS: 45380; 88305; J2001

== ENCOUNTER 2021-05-28 18:45 | Outpatient (REF) | payer BC, SELFPAY ==
[2021-05-30 18:16] LABS: COVID-19 RT-PCR Result Not Detected ((See Note))
== END 2021-05-28 18:46 | disposition home or self-care (01) ==
LOC: LBN 18:45
PROVIDERS: PCP Physician Assistant Medical; Visit Provider Nurse Practitioner Family
DX: Z20.822 Contact with and (suspected) exposure to COVID-19 (principal); J06.9 Acute upper respiratory infection, unspecified
CPT/HCPCS: U0003

== ENCOUNTER 2021-06-20 02:35 | Outpatient (CLI) | payer BC, SELFPAY ==
--- NOTE | 2021-06-20 | DI.MAMMO_ITS ---
Exam(s) MAMMO SCREENING EXAM: MAMMO SCREENING CLINICAL HISTORY: SCREENING, HEALTH MAINTENANCE, Z00.8. TECHNIQUE: Bilateral full field digital CC and MLO mammographic images were obtained with 3D tomosyn thesis and utilizing computer aided detection (CAD). COMPARISON: Prior mammograms dating back to 2012, the most recent being June 2020. FINDINGS: There is an asymmetric density in the right breast which is unchanged from 2013 and therefore benign A biopsy marker device in the left breast is noted with no new significant findings in the immediate vicinity. There are no new spiculated masses nor malignant appearing microcalcification groups. Benign microcalcifications in the breast are again. There is no significant architectural distortion nor skin thickening-retraction. IMPRESSION: Stable benign findings. No radiographic evidence of malignancy. BI-RADS Category 2 - Benign Findings Breast Density - Category B - Scattered areas of fibroglandular density Breast density Category C or D implies that the patient has dense breast tissue. Dense breast tissue can make it harder to find cancer on a mammogram. Dense breast tissue is also associated with an incr eased risk of breast cancer. This information about the result of the mammogram report was provided to the patient to raise their awareness. Use this report when you speak with the patient about their risks for breast cancer, which includes their family history. At that time, you may recommend additional screening tests (Ultrasoun d or MRI) as these tests may add significant information. A negative radiographic report should not delay biopsy if a dominant or clinically suspicious mass is present. Up to ten percent of cancers are not identified on mammography. A negative report may reinforce clinical impression. Adenosis and dense breasts may obscure an underlying neoplasm. False positive reports average 6 to 10%. Patient will receive a letter notifying them of these results.
== END 2021-06-20 02:55 ==
PROVIDERS: PCP Physician Assistant Medical; Visit Provider Physician Assistant Medical
DX: Z12.31 Encounter for screening mammogram for malignant neoplasm of breast (principal); Z00.8 Encounter for other general examination
CPT/HCPCS: 77063; 77067

== ENCOUNTER 2021-06-27 12:25 | Outpatient (REF) | payer BC, SELFPAY ==
[2021-06-27 20:34] LABS: ALT 34 U/L (14-59); AST 11 U/L (15-37); Albumin 3.5 g/dL (3.4-5.0); Alkaline Phosphatase 69 U/L (46-116); Anion Gap 8.3 mmol/L (3-11); BUN 9 mg/dL (7-18); Bilirubin, Total 0.4 mg/dL (0.2-1.0); CO2 28.7 mmol/L (21.0-32.0); CREATININE 0.9 mg/dL (0.55-1.02); Calcium 9.1 mg/dL (8.5-10.1); Calculated LDL 148 mg/dL (<100); Chloride 106 mmol/L (98-107); Cholesterol 238 mg/dL (<200); Glucose 73 mg/dL (74-106); HDL Cholesterol 63 mg/dL (40-60); Sodium 143 mmol/L (136-145); Total Protein 6.9 g/dL (6.4-8.2); Triglyceride 139 mg/dL (<150)
== END 2021-06-27 12:26 | disposition home or self-care (01) ==
LOC: NCHCN 12:25
PROVIDERS: PCP Physician Assistant Medical; Visit Provider Physician Assistant Medical
DX: M25.50 Pain in unspecified joint (principal)
CPT/HCPCS: 80053; 80061

== ENCOUNTER 2021-08-10 00:47 | Outpatient (CLI) | payer BC, SELFPAY ==
--- NOTE | 2021-08-10 | DI.CT_ITS ---
Exam(s) CT CHEST/ABD/PEL W EXAM: CT CHEST/ABD/PEL W CLINICAL HISTORY: RECTAL CA,C20,S/P RADIATION,LAR,CHEMO,RESTAGING EXAM TECHNIQUE: CT examination of the chest, abdomen, and pelvis was performed utilizing intravenous inf usion of 100 cc of Omnipaque 350 with biphasic hepatic imaging. Oral contrast was also administered. COMPARISON: CT CT CHEST/ABD/PEL W from 06/29/2020 FINDINGS: Lungs are clear except for a stable 2-3 millimeter peripheral right basilar lung nodule.. No pleural effusion. No pleural based mass. No mediastinal or hilar adenopathy. No axillary or supraclavicular adenopathy. Tracheobronchial jada e appears intact. No evidence of pulmonary embolic disease. Unremarkable appearance of thoracic aorta and major branch vessels. The liver appears normal with no focal hepatic lesion identified. Prior cholecystectomy noted. No niurka iary dilatation. Spleen is unremarkable in appearance. Pancreas appears fatty replaced.. Adrenals appear normal. Kidneys are unremarkable in appearance with no renal mass, hydronephrosis, or nephrolithiasis. Abdominal aorta and major visceral branches appear intact. Previously noted rectosigmoid anastomosis again seen, no change from prior study, the patient aaron simeon has a history of rectal carcinoma. Presacral soft tissue thickening again noted, unchanged. No ad enopathy of the pelvic sidewalls. No abdominal or pelvic adenopathy. No significant abdominal wall hernia. Tiny stable sclerotic lesions are noted in the left sacrum and left iliac bone consistent with bone i slands, no change from prior CT of June 2020. IMPRESSION: No evidence metastatic disease of the chest, abdomen, or pelvis. No change since prior examination of June 2020. RADIATION DOSE DELIVERED: 2,095.25mGy.cm Total DLP 2,095.25mGy.cm Total DLP 22.81mGy CTDIvol RADIATION OPTIMIZATION: All CT scans at this facility use at least one of these dose optimization te chniques: automated exposure control; mA and/or kV adjustment per patient size (includes targeted exa ms where dose is matched to clinical indication); or iterative reconstruction.
[2021-08-10 10:04] LABS: Abs Immature Grans 0.01 10^3/uL (0.0-0.06); Absolute Basophil Count 0.04 10^3/uL (0.0-0.2); Absolute Eosinophil Count 0.24 10^3/uL (0.0-0.7); Absolute Monocyte Count 0.35 10^3/uL (0.1-0.8); Absolute Neutrophil Count 3.24 10^3/uL (1.2-6.7); Basophils % 0.7; Eosinophils % 4.3; HCT 43.8 % (36.0-46.0); HGB 14.6 g/dL (11.2-15.7); Immature Grans % 0.2; Lymphocytes % 30.5; MCH 30.3 pg (27.0-33.0); MCHC 33.3 % (32.0-36.0); MCV 90.9 fL (80-95); MPV 9.5 fL (8.0-11.0); Monocytes % 6.3; Nucleated RBC 0 %; Platelet Count 280 10^3/uL (130-400); RBC 4.82 10^6/uL (3.93-5.22); RDW 12.6 % (11.7-14.6); RDW-SD 42.1 fL; WBC 5.58 10^3/uL (4.4-10.8)
[2021-08-10 10:14] LABS: ALT 21 U/L (14-59); AST 16 U/L (15-37); Albumin 3.7 g/dL (3.4-5.0); Alkaline Phosphatase 62 U/L (46-116); Anion Gap 6.2 mmol/L (3-11); BUN 10 mg/dL (7-18); Bilirubin, Total 0.5 mg/dL (0.2-1.0); CO2 29.8 mmol/L (21.0-32.0); CREATININE 0.8 mg/dL (0.55-1.02); Calcium 9.2 mg/dL (8.5-10.1); Chloride 106 mmol/L (98-107); Glucose 87 mg/dL (74-106); Potassium 3.8 mmol/L (3.5-5.1); Sodium 142 mmol/L (136-145)
[2021-08-10] MEDS: Omnipaque 350 MG/ML 100 ML BTL IJ (11:27)
[2021-08-10] MEDS: Normal Saline - Diluent 50 ML VIAL IV (11:30)
[2021-08-10] MEDS: Normal Saline Flush 10 ML SYR IVP (11:30)
[2021-08-10] MEDS: Breeza Beverage 473 ML BTL 946 ML PO (11:31)
[2021-08-10 18:22] LABS: CEA <0.5 ng/mL (See Note)
== END 2021-08-10 01:07 ==
PROVIDERS: PCP Physician Assistant Medical; Visit Provider Internal Medicine Hematology & Oncology
DX: Z85.048 Personal history of other malignant neoplasm of rectum, rectosigmoid junction, and anus (principal)
CPT/HCPCS: 74177; 80053; 71260; 82378; 85025; J3490

== ENCOUNTER 2022-01-18 18:32 | Emergency (ER) | payer BC, SELFPAY ==
[2022-01-18] VITALS (17 sets, daily range): BP systolic 120–146; BP diastolic 76–101; PULSE 79–114; RESP 22; TEMP 36.4; O2SAT 96–100
--- NOTE | 2022-01-18 18:45 | DI.CT_ITS ---
Exam(s) CT ABDOMEN PELVIS W EXAM: CT ABDOMEN PELVIS W INDICATION: Nausea vomiting with history of SBO. COMPARISON: CT CT CHEST/ABD/PEL W from 08/10/2021 TECHNIQUE: FINDINGS: CT examination of the abdomen and pelvis was performed with a bolus infusion of 100 cc of Omnipaque 3 50. Images obtained through the lung bases are unremarkable. The liver is unremarkable in appearance. Prior cholecystectomy, bile ducts are CT normal. Pancreas appears normal. Spleen is unremarkable in appearance. Adrenals appear normal. The kidneys are unremarkable with no evidence of hydronephrosis, nephrolithiasis, or renal mass.. Ur inary bladder unremarkable. Abdominal aorta is of normal diameter and no major vascular abnormality is seen. No abdominal wall hernia. No abdominal or pelvic adenopathy. Uterus is atrophic or absent.. Prior colonic surgery noted with anastomotic sutures in cecum and sigmoid period Appendix is nonvisualized with no evidence of acute appendicitis. Note is made of multiple areas of fluid accumulation in small bowel and colon with multiple questionable areas of wall thickening, poss ible enteritis period. No evidence of diverticulitis or bowel obstruction. IMPRESSION: Possible enteritis. No other significant findings. RADIATION DOSE DELIVERED: 1,030.36mGy.cm Total DLP 1,030.36mGy.cm Total DLP !Error CTDIvol RADIATION OPTIMIZATION: All CT scans at this facility use at least one of these dose optimization te chniques: automated exposure control; mA and/or kV adjustment per patient size (includes targeted exa ms where dose is matched to clinical indication); or iterative reconstruction.
[2022-01-18] MEDS: Normal Saline 1,000 ML 1000 ML IV (19:22)
[2022-01-18] MEDS: Ondansetron 4 MG/2 ML VIAL IVP ×2 (19:23→21:30)
[2022-01-18] MEDS: Ketorolac 15 MG/ML VIAL IVP (19:23)
[2022-01-18 19:37] LABS: Abs Immature Grans 0.04 10^3/uL (0.0-0.06); Absolute Basophil Count 0.02 10^3/uL (0.0-0.2); Absolute Eosinophil Count 0.13 10^3/uL (0.0-0.7); Absolute Monocyte Count 0.44 10^3/uL (0.1-0.8); Basophils % 0.2; Eosinophils % 1.1; HCT 45.8 % (36.0-46.0); HGB 15.6 g/dL (11.2-15.7); Immature Grans % 0.3; Lymphocytes % 7.3; MCH 29.8 pg (27.0-33.0); MCHC 34.1 % (32.0-36.0); MCV 87.6 fL (80-95); MPV 9.3 fL (8.0-11.0); Monocytes % 3.6; Neutrophils % 87.5; Nucleated RBC 0 %; Platelet Count 275 10^3/uL (130-400); RBC 5.23 10^6/uL (3.93-5.22); RDW 12.3 % (11.7-14.6); RDW-SD 39.6 fL; WBC 12.13 10^3/uL (4.4-10.8)
[2022-01-18 19:38] LABS: Absolute Lymphocyte Count 0.89 10^3/uL (1.2-3.4); Absolute Neutrophil Count 10.61 10^3/uL (1.2-6.7)
[2022-01-18 19:39] LABS: Lipase 30 U/L (73-393)
[2022-01-18 19:42] LABS: ALT 28 U/L (14-59); AST 25 U/L (15-37); Albumin 3.6 g/dL (3.4-5.0); Alkaline Phosphatase 59 U/L (46-116); Anion Gap 10.8 mmol/L (3-11); BUN 15 mg/dL (7-18); Bilirubin, Total 0.8 mg/dL (0.2-1.0); CO2 22.2 mmol/L (21.0-32.0); CREATININE 0.8 mg/dL (0.55-1.02); Chloride 105 mmol/L (98-107); Glucose 149 mg/dL (74-106); Magnesium 1.8 mg/dL (1.8-2.4); Potassium 3.6 mmol/L (3.5-5.1); Sodium 138 mmol/L (136-145); Total Protein 7.7 g/dL (6.4-8.2)
[2022-01-18] MEDS: Omnipaque 350 MG/ML 100 ML BTL IJ (19:53)
--- NOTE | 2022-01-18 20:29 | DI.VRAD_ITS ---
PROCEDURE INFORMATION: Exam: CT Abdomen And Pelvis With Contrast Exam date and time: 01/18/2022 7:41 PM Age: 56 years old Clinical indication: Nausea and vomiting; Abdominal pain; Generalized; Prior surgery; Surgery date: 6+ months; Surgery type: Multiple surgeries for colon CA, hysterectomy; Additional info: Nausea, vomiting, h/o sbo TECHNIQUE: Imaging protocol: Computed tomography of the abdomen and pelvis with contrast. Radiation optimization: All CT scans at this facility use at least one of these dose optimization techniques: automated exposure control; mA and/or kV adjustment per patient size (includes targeted exams where dose is matched to clinical indication); or iterative reconstruction. Contrast material: OMNI 350; Contrast volume: 100 ml; Contrast route: INTRAVENOUS (IV); COMPARISON: CT CHEST/ABD/PEL W 08/10/2021 11:17 AM FINDINGS: Diaphragm: There is a small sliding hiatal hernia, as on prior study. Liver: Normal. No mass. Gallbladder and bile ducts: There has been a cholecystectomy. Pancreas: The pancreas is moderately atrophic but appears otherwise unremarkable without focal lesion or evidence of acute inflammation. Spleen: Normal. No splenomegaly. Adrenal glands: Normal. No mass. Kidneys and ureters: No renal or ureteral stones are identified. There is no hydronephrosis or hydroureter. Stomach and bowel: Again noted is postoperative change of prior partial colonic resection with colonic anastomosis in the region of the rectosigmoid junction. No focal mass lesion is identified. There is also an anastomotic staple line involving the ascending colon, without focal mass lesion identified. Findings suggest regions of mild mesenteric edema involving loops of jejunum, as seen around image 57, series 2, suggesting mild enteritis. There may be mild inflammatory wall thickening of loops of ileum in the posterior midline upper pelvis around image 60, series 2. There is liquid stool within the proximal colon to the level of the distal transverse colon which could reflect diarrheal illness. There is no evidence for active colonic inflammation. Appendix: No evidence of appendicitis. Intraperitoneal space: No ascites or free intraperitoneal air identified. Vasculature: Unremarkable. No abdominal aortic aneurysm. Lymph nodes: Unremarkable. No enlarged lymph nodes. Urinary bladder: No bladder stones are identified. Reproductive: There has been a hysterectomy. Bones/joints: There is moderate to severe facet arthrosis at L4-L5. There is moderate spondylosis at L5-S1 with more mild multilevel degenerative change more superiorly. No acute fractures are identified. Soft tissues: Again noted is soft tissue infiltration within the presacral space, as seen around image 69, series 2, stable, likely postoperative fibrosis. IMPRESSION: 1. Findings suggest multifocal mild enteritis, as described above. Recommend clinical correlation. 2. Liquid stool within the colon, suggesting diarrheal illness. No CT evidence of active colonic inflammation. 3. No evidence of bowel obstruction. 4. Postoperative changes of partial colonic resection. 5. Small sliding hiatal hernia. 6. Status post cholecystectomy and hysterectomy. Dictated and Authenticated by: Pasquale Britt MD. Ordering:MARTIR Leger MD
--- NOTE | 2022-01-18 21:32 | ED.GENADUL_ITS ---
Discharge Plan Disposition Patient Disposition: HOME Condition: Improving Discharge Details Clinical Impression: Nausea and vomiting Primary Care Provider: Willian Petersen ED Provider: Arsen Adame Home Meds and New Rx's Prescriptions: New ondansetron 4 mg tablet,disintegrating 4 mg PO Q6H PRN (Reason: nausea and vomiting) Qty: 10 0RF Continued lisinopril 5 mg tablet 15 mg PO DAILY 0RF cetirizine 10 mg tablet 10 mg PO DAILY 0RF estradiol 1 mg tablet 1 mg PO DAILY 0RF Rx Instructions: off 1 week; repeat cycle dicyclomine 10 mg capsule 10 mg PO BID 0RF budesonide [Pulmicort] 0.25 mg/2 mL suspension for nebulization 0.25 mg inhalation BID 0RF fluticasone propionate [Flonase Allergy Relief] 50 mcg/actuation spray,suspension 1 spray intranasal DAILY 0RF Rx Instructions: administer into each nostril acetaminophen 325 MG tablet 2 tab PO Q4H PRN [id number] Discharge Instructions Instructions: Acute Nausea and Vomiting (ED) Additional Instructions: As discussed if you develop any significant worsening of your symptoms such as fever chills, worsening abdominal pain, uncontrollable vomiting, or any further concerns feel free to return to the emergency department for reevaluation. At this time take medications as prescribed and start with clear liquids for the next 24 to 48 hours then slowly advance your diet. Referrals: Willian Petersen PA [Primary Care Provider] - (As needed for reassessment) Discharge Data Discharge Date/Time-TO BE ENTERED AT DEPARTURE: 01/18/22 21:47 Medical Decision Making Patient presenting to the emergency for chief nausea vomiting. Patient reports history of small bowel obstruction with similar presentation. She does state some abdominal cramping but denies pain discomfort. Review of systems is otherwise unremarkable. Physical exam shows acutely ill-appearing patient is actively retching upon initial presentation. Hypoactive bowel sounds without focal abdominal findings to palpation. Exam otherwise nondiagnostic. Plan to check labs including CT imaging for concern of obstruction given patient's history. We will treat patient nausea and hydrate patient pending results. Review of labs show a mild elevation of WBCs neutrophils with low lymphocytes unremarkable CMP and negative lipase. Reviewed CT imaging that shows no obvious bowel obstruction but possibly mild enteritis. Patient was reassessed and states significant improvement of symptoms and now is pain-free with no nausea. We will plan on p.o. challenging patient to see how she does. P.o. challenge went well with no further vomiting or retching. Patient did state some slight discomfort with water intake so we will give patient additional dose of Zofran. Discussed with patient risk versus benefit of observation admission given her history of adhesions and small bowel obstructions to see if this since it is an early presentation versus outpatient therapy. After thorough discussion patient was agreeable to returning home with ODT Zofran. Patient was encouraged clear liquids only but given history for any new or significant worsening symptoms to return immediately to the emergency department. After discussion of diagnosis and plan of care patient has no further needs, questions, or concerns and states clear understanding to return to the emergency department for any worsening symptoms. Imaging Data Radiologic Study: Imaging: CT Scan Radiologist's impression: IMPRESSION: 1. Findings suggest multifocal mild enteritis, as described above. Recommend clinical correlation. 2. Liquid stool within the colon, suggesting diarrheal illness. No CT evidence of active colonic inflammation. 3. No evidence of bowel obstruction. 4. Postoperative changes of partial colonic resection. 5. Small sliding hiatal hernia. 6. Status post cholecystectomy and hysterectomy Lab Data Lab results reviewed: Yes I reviewed the patient's lab results. Labs: Laboratory Tests Range/Units 01/18/22 01/18/22 01/18/22 19:10 19:10 19:10 WBC (4.4-10.8) 10^3/uL 12.13 H RBC (3.93-5.22) 10^6/uL 5.23 H Hgb (11.2-15.7) g/dL 15.6 Hct (36.0-46.0) % 45.8 MCV (80-95) fL 87.6 MCH (27.0-33.0) pg 29.8 MCHC (32.0-36.0) % 34.1 RDW (11.7-14.6) % 12.3 Plt Count (130-400) 10^3/uL 275 MPV (8.0-11.0) fL 9.3 Immature Gran % 0.3 Neutrophils % 87.5 Lymphocytes % 7.3 Monocytes % 3.6 Eosinophils % 1.1 Basophils % 0.2 Nucleated RBC % % 0 Absolute Neutrophils (1.2-6.7) 10^3/uL 10.61 H Absolute Lymphocytes (1.2-3.4) 10^3/uL 0.89 L Absolute Monocytes (0.1-0.8) 10^3/uL 0.44 Absolute Eosinophils (0.0-0.7) 10^3/uL 0.13 Absolute Basophils (0.0-0.2) 10^3/uL 0.02 Sodium (136-145) mmol/L 138 Potassium (3.5-5.1) mmol/L 3.6 Chloride (98-107) mmol/L 105 Carbon Dioxide (21.0-32.0) mmol/L 22.2 Anion Gap (3-11) mmol/L 10.8 BUN (7-18) mg/dL 15 Creatinine (0.55-1.02) mg/dL 0.8 Estimated GFR/1.73 m2 (mL/min/1.73m2) >= 60.00 Glucose (74-106) mg/dL 149 H Calcium (8.5-10.1) mg/dL 9.0 Magnesium (1.8-2.4) mg/dL 1.8 Total Bilirubin (0.2-1.0) mg/dL 0.8 AST (15-37) U/L 25 ALT (14-59) U/L 28 Alkaline Phosphatase (46-116) U/L 59 Total Protein (6.4-8.2) g/dL 7.7 Albumin (3.4-5.0) g/dL 3.6 Lipase (73-393) U/L 30 HPI General Mode of arrival: ambulatory . Date/Time Provider Initiated Documentation: 01/18/22 18:52 . Limitations to Documentation: no limitations . Information obtained by: patient, RN notes reviewed and old records reviewed . History of Present Illness 56 year old F presents to the emergency department with the chief complaint of Nausea vomiting and abdominal cramping, described as moderate and similar to prior episodes, with intensity rated at 5. Quality is described as other (Cramping), and is localized to the abdomen. Patient reports no radiation. Patient started experiencing this hour(s) (10) and it has been constant. improves with No relieving factors improve symptom(s), No exacerbating factors reported . Patient notes no other symptoms.. Patient did receive the following treatments prior to arrival, other (Bentyl and Zofran) Related Data Home Medications Medication Instructions Recorded Confirmed acetaminophen 325 mg tablet 2 tab PO Q4H PRN PRN 12/31/16 01/19/22 cetirizine 10 mg tablet 10 mg PO DAILY 07/03/20 01/19/22 estradiol 1 mg tablet 1 mg PO DAILY 07/03/20 01/19/22 lisinopril 5 mg tablet 15 mg PO DAILY 07/03/20 01/19/22 budesonide 0.25 mg/2 mL suspension 0.25 mg INHALATION BID 02/02/21 01/19/22 for nebulization (Pulmicort) dicyclomine 10 mg capsule 10 mg PO BID 02/02/21 01/19/22 fluticasone propionate 50 1 spray INTRANASAL DAILY 02/02/21 01/19/22 mcg/actuation nasal spray,suspension (Flonase Allergy Relief) ondansetron 4 mg disintegrating 4 mg PO Q6H PRN #10 tab 01/18/22 01/19/22 tablet Previous Rx's Medication Instructions Recorded ondansetron 4 mg disintegrating 4 mg PO Q6H PRN #10 tab 01/18/22 tablet Allergies Allergy/AdvReac Type Severity Reaction Status Date / Time latex Allergy Mild Skin Rash Unverified 01/19/22 01:39 Opioids - Morphine Analogues AdvReac Severe N/V/Dizzine Unverified 01/19/22 01:39 ss General Stated Complaint: Nausea/Vomit/Diar DOUG: 3 Review of Systems Constitutional Constitutional: Denies chills, Denies fever(s) and Reports poor appetite Cardiovascular Cardiovascular: Denies chest pain and Denies dyspnea Respiratory Respiratory: Denies cough and Denies dyspnea Gastrointestinal Gastrointestinal: Reports as per HPI, Denies abdominal pain, Denies melena, Denies change in bowel habits, Denies constipation, Reports cramping, Reports diarrhea, Reports nausea and Reports vomiting Genitourinary Genitourinary: Denies hematuria, Denies urinary incontinence, Denies urinary hesitancy and Denies urinary urgency Integumentary/Breasts Skin/Breast: Denies rash PFSH All Active Problems Vomiting (Acute) Acute dehydration (Acute) Enteritis (Acute) Intra-abdominal adhesions (Acute) GI bleed (Acute) Hypomagnesemia (Acute) Rectal cancer (Acute) Nausea and vomiting (Acute) Hypokalemia (Acute) Ileus (Acute) Acute abdominal pain (Acute) Internal derangement of right knee (Acute) Tendinitis of left quadriceps tendon (Acute) Small bowel obstruction due to adhesions (Acute) Acute abdominal pain (Acute) Leukocytosis (Acute) Small bowel obstruction (Acute) Medical History Anxiety Hx of small bowel obstruction Hypertension Migraine Rectal cancer treated with partial colectomy (oct 2017) and radiation Rectal prolapse Tubular adenoma of colon (09/30/16) invasive adenocarcinoma arising in a tubular adenoma. Surgical History Biopsy of breast Cholecystectomy Colonoscopy - MAC (09/30/16) Colonoscopy - MAC (01/01/17) Colonoscopy - MAC (06/01/18) colostomy takedown (10/15/17) History of colonoscopy (~03/16/21) left subclavian vein port removal (05/07/18) Partial resection of colon (11/27/16) with colostomy, reversal 10/15/17 Vaginal hysterectomy Family History Mother Dementia Social History Smoking/Tobacco Use Status: Never Smoking risk assessment performed?: Yes Alcohol Intake: current Alcohol Intake frequency: a few times a month Drug use: Never Substance use type: does not use Household members: spouse Housing: house Do you feel safe at home: Yes Do you feel safe in your relationship?: Yes Exam Const General: cooperative Orientation: alert, awake and oriented x3 Resp Effort & Inspection: normal respiratory effort and able to speak in complete sentences Auscultation: clear to auscultation bilaterally Cardio Rate: regular rate Rhythm: regular rhythm Heart Sounds: S1 normal and S2 normal GI Palpation: soft, no hepatosplenomegaly, not firm, no guarding, no masses, no pulsatile masses, not rigid, no splenomegaly and nontender Auscultation: hypoactive bowel sounds Back/Spine/Pelvis Back: no CVA tenderness Neuro General: patient alert, patient awake, patient oriented x3, gait normal and moves all extremities Course Vital Signs Vital signs: Vital Signs Temperature 36.4 C L 01/18/22 19:13 Pulse 114 H 01/18/22 19:13 Respiratory Rate 22 01/18/22 19:13 Blood Pressure 130/101 H 01/18/22 19:13 Pulse Oximetry 99 01/18/22 19:13 Temperature 36.4 C L 01/18/22 19:13 Temperature Source Skin 01/18/22 19:13 Pulse 80 01/18/22 21:17 Respiratory Rate 22 01/18/22 19:13 Respiratory Effort Non-Labored 01/18/22 19:19 Blood Pressure 120/79 01/18/22 21:17 Blood Pressure Mean 90 01/18/22 21:17 Blood Pressure Position Sitting 01/18/22 19:13 Pulse Oximetry 99 01/18/22 21:30 Oxygen Delivery Method Room Air 01/18/22 19:13 Oxygen Flow Rate 0 01/18/22 19:13 Pain Level 2 01/18/22 19:53 Lab/Test Results Lab/Test Results: Laboratory Tests Range/Units 01/18/22 01/18/22 01/18/22 19:10 19:10 19:10 WBC (4.4-10.8) 10^3/uL 12.13 H RBC (3.93-5.22) 10^6/uL 5.23 H Hgb (11.2-15.7) g/dL 15.6 Hct (36.0-46.0) % 45.8 MCV (80-95) fL 87.6 MCH (27.0-33.0) pg 29.8 MCHC (32.0-36.0) % 34.1 RDW (11.7-14.6) % 12.3 Plt Count (130-400) 10^3/uL 275 MPV (8.0-11.0) fL 9.3 Immature Gran % 0.3 Neutrophils % 87.5 Lymphocytes % 7.3 Monocytes % 3.6 Eosinophils % 1.1 Basophils % 0.2 Nucleated RBC % % 0 Absolute Neutrophils (1.2-6.7) 10^3/uL 10.61 H Absolute Lymphocytes (1.2-3.4) 10^3/uL 0.89 L Absolute Monocytes (0.1-0.8) 10^3/uL 0.44 Absolute Eosinophils (0.0-0.7) 10^3/uL 0.13 Absolute Basophils (0.0-0.2) 10^3/uL 0.02 Sodium (136-145) mmol/L 138 Potassium (3.5-5.1) mmol/L 3.6 Chloride (98-107) mmol/L 105 Carbon Dioxide (21.0-32.0) mmol/L 22.2 Anion Gap (3-11) mmol/L 10.8 BUN (7-18) mg/dL 15 Creatinine (0.55-1.02) mg/dL 0.8 Estimated GFR/1.73 m2 (mL/min/1.73m2) >= 60.00 Glucose (74-106) mg/dL 149 H Calcium (8.5-10.1) mg/dL 9.0 Magnesium (1.8-2.4) mg/dL 1.8 Total Bilirubin (0.2-1.0) mg/dL 0.8 AST (15-37) U/L 25 ALT (14-59) U/L 28 Alkaline Phosphatase (46-116) U/L 59 Total Protein (6.4-8.2) g/dL 7.7 Albumin (3.4-5.0) g/dL 3.6 Lipase (73-393) U/L 30 PAWSS Have you Been Recently Intoxicated or Drunk Within the Last 30 days?: No Have you Ever Experienced Previous Episodes of Alcohol Withdrawal?: No Have you ever Experienced Withdrawal Seizures?: No Have you ever Experienced Delirium Tremens(DT)s?: No Have you ever undergone Alcohol Rehabilitation Treatment (i.e, inpt ot outpatient treatment programs)?: No Have you ever Experienced Blackouts?: No Have you ever Combined Alcohol with other Downers within the last 90 days?: No Have you ever Combined Alcohol with any other Substance of Abuse during the last 90 days?: No Positive Blood Alcohol level on Presentation? [PCS.BAL]: No Evidence of Increased Autonomic Activity (i.e. HR>120, tremor, sweating, agitation, nausea)?: No Result: 0
--- NOTE | 2022-01-22 15:35 | CHAPLAIN ---
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 She has been well supported by friends who are taking care of her dog, providing transportation for her, and helping her to figure out how to cover her holy day services this week. She was expecting to be discharged this afternoon after her diet was advanced. Following Brooke's cancer treatments a few years ago, she has been hospitalized a few times and usually is okay to return home within a few days.
== END 2022-01-18 21:47 | disposition home or self-care (01) ==
PROVIDERS: Emergency Provider Nurse Practitioner Family; PCP Physician Assistant Medical
DX: R11.2 Nausea with vomiting, unspecified (principal); Z87.19 Personal history of other diseases of the digestive system
CPT/HCPCS: 80053; 83690; 96361; 96374; 96375; 96376; 99285; 74177; 83735; 85025; 99284; J1885; J2405; J3490

== ENCOUNTER 2022-01-19 01:30 | Inpatient (IN) | payer BC, SELFPAY ==
[2022-01-19] VITALS (9 sets, daily range): BP systolic 126–141; BP diastolic 82–91; PULSE 71–121; RESP 16–18; TEMP 36.4–37.5; O2SAT 94–99
[2022-01-19] MEDS: Normal Saline 1,000 ML 1000 ML IV (02:00)
[2022-01-19] MEDS: Normal Saline 1,000 ML 150 ML IV ×4 (02:33→21:20)
[2022-01-19 02:38] LABS: Abs Immature Grans 0.02 10^3/uL (0.0-0.06); Absolute Basophil Count 0.02 10^3/uL (0.0-0.2); Absolute Eosinophil Count 0.02 10^3/uL (0.0-0.7); Absolute Lymphocyte Count 0.41 10^3/uL (1.2-3.4); Absolute Monocyte Count 0.37 10^3/uL (0.1-0.8); Absolute Neutrophil Count 8.85 10^3/uL (1.2-6.7); Basophils % 0.2; Eosinophils % 0.2; HCT 42.5 % (36.0-46.0); HGB 14.2 g/dL (11.2-15.7); Immature Grans % 0.2; Lymphocytes % 4.2; MCH 29.8 pg (27.0-33.0); MCHC 33.4 % (32.0-36.0); MCV 89.3 fL (80-95); MPV 9.5 fL (8.0-11.0); Monocytes % 3.8; Neutrophils % 91.4; Nucleated RBC 0 %; Platelet Count 247 10^3/uL (130-400); RBC 4.76 10^6/uL (3.93-5.22); RDW 12.4 % (11.7-14.6); RDW-SD 41.1 fL; WBC 9.69 10^3/uL (4.4-10.8)
[2022-01-19] MEDS: Dicyclomine 20 MG TAB PO (02:43)
[2022-01-19] MEDS: Ondansetron 4 MG/2 ML VIAL IVP ×3 (02:43→19:56)
[2022-01-19 02:53] LABS: ALT 25 U/L (14-59); AST 21 U/L (15-37); Albumin 3.2 g/dL (3.4-5.0); Alkaline Phosphatase 55 U/L (46-116); Anion Gap 8.6 mmol/L (3-11); BUN 13 mg/dL (7-18); Bilirubin, Total 0.8 mg/dL (0.2-1.0); CO2 25.4 mmol/L (21.0-32.0); CREATININE 0.9 mg/dL (0.55-1.02); Chloride 105 mmol/L (98-107); Glucose 137 mg/dL (74-106); Lipase 25 U/L (73-393); Potassium 3.4 mmol/L (3.5-5.1); Sodium 139 mmol/L (136-145)
[2022-01-19 03:14] LABS: Source Nasal/Nares
--- NOTE | 2022-01-19 03:55 | W.ED.GENAD ---
Discharge Plan Disposition Patient Disposition: [facility] INPATIENT Condition: Improving Discharge Details Chief Complaint: Nausea/Vomit/Diar Clinical Impression: Vomiting, Acute dehydration, Enteritis Primary Care Provider: Willian Petersen ED Provider: Corey Shaffer Home Meds and New Rx's Prescriptions: No Action lisinopril 5 mg tablet 15 mg PO DAILY 0RF cetirizine 10 mg tablet 10 mg PO DAILY 0RF estradiol 1 mg tablet 1 mg PO DAILY 0RF Rx Instructions: off 1 week; repeat cycle dicyclomine 10 mg capsule 10 mg PO BID 0RF budesonide [Pulmicort] 0.25 mg/2 mL suspension for nebulization 0.25 mg inhalation BID 0RF fluticasone propionate [Flonase Allergy Relief] 50 mcg/actuation spray,suspension 1 spray intranasal DAILY 0RF Rx Instructions: administer into each nostril ondansetron 4 mg tablet,disintegrating 4 mg PO Q6H PRN (Reason: nausea and vomiting) Qty: 10 0RF acetaminophen 325 MG tablet 2 tab PO Q4H PRN [id number] Medical Decision Making This is a 56-year-old female with a past medical history of previous colon cancer, and subsequent partial colectomy, as well as vaginal hysterectomy, who has since then had multiple episodes of cramping vomiting ileus and occasionally small bowel obstruction at this time more suspected to be related to adhesions. She presents again today for 1 of these episodes. This morning she woke up and had notable cramps, throughout the day they worsen then in the early afternoon she developed multiple episodes of vomiting. She came to the ER for further assessment. She had labs which were unremarkable, CAT scan which showed enteritis but no obstruction. She was feeling slightly better with Bentyl and fluids, and although normally she is admitted, after long discussion they decided to go home and do a home trial to see if she could continue at home. Unfortunately as soon as she went home her vomiting and cramps persisted and returned, she was unable to keep down p.o. fluids, and came back for reassessment. Currently she has no dry heaving, and only very minimal abdominal cramping. She denies chest pain or shortness of breath. She denies hematemesis. At home prior to arrival she did take Zofran and Bentyl and this did not resolve her symptoms with the first time or the second time. He states that the symptoms currently feel identical to her previous episodes, but not as severe as sometimes past. Physical exam demonstrates nontender abdomen, no distention. Bowel sounds are present but notably reduced. No evidence of an acute surgical abdomen. Mucous membranes are notably dry. She is mildly tachycardic on arrival though at 121. With the patient's multiple episodes of emesis, even with her absence of obstruction from the CAT scan just a few hours earlier, I do feel that she has persistent enteritis that are limiting her p.o. capabilities. I again discussed with the patient admission versus discharge, and she feels uncomfortable going home again. Repeat labs are unremarkable. We will rehydrate with an additional liter of fluids, continue fluids at 125 an hour in addition to this, give Bentyl and Zofran, and contact the hospitalist for admission. With no evidence of an acute surgical abdomen, no significant change in abdominal tenderness whatsoever, and the recent negative CAT scan just few hours ago, no indication for repeat imaging at this time. No indication for emergent surgical consultation currently. I did contact the hospitalist Dr. Villalobos, he agrees with the plan. I will place admission orders on his behalf. I have extensively reviewed the treatment plan with the patient. I have addressed all patient concerns at this time. I have also discussed the plan with the admitting physician and they agree with the current assessment and plan and have agreed to assume responsibility for the patient. All parties demonstrate verbal understanding and agreement with our assessment and plan at this time. The documentation in this chart was dictated using [employer] dictation software. Please excuse any dictation errors. FINDINGS: Diaphragm: There is a small sliding hiatal hernia, as on prior study. Liver: Normal. No mass. Gallbladder and bile ducts: There has been a cholecystectomy. Pancreas: The pancreas is moderately atrophic but appears otherwise unremarkable without focal lesion or evidence of acute inflammation. Spleen: Normal. No splenomegaly. Adrenal glands: Normal. No mass. Kidneys and ureters: No renal or ureteral stones are identified. There is no hydronephrosis or hydroureter. Stomach and bowel: Again noted is postoperative change of prior partial colonic resection with colonic anastomosis in the region of the rectosigmoid junction. No focal mass lesion is identified. There is also an anastomotic staple line involving the ascending colon, without focal mass lesion identified. Findings suggest regions of mild mesenteric edema involving loops of jejunum, as seen around image 57, series 2, suggesting mild enteritis. There may be mild inflammatory wall thickening of loops of ileum in the posterior midline upper pelvis around image 60, series 2. There is liquid stool within the proximal colon to the level of the distal transverse colon which could reflect diarrheal illness. There is no evidence for active colonic inflammation. Appendix: No evidence of appendicitis. Intraperitoneal space: No ascites or free intraperitoneal air identified. Vasculature: Unremarkable. No abdominal aortic aneurysm. Lymph nodes: Unremarkable. No enlarged lymph nodes. Urinary bladder: No bladder stones are identified. Reproductive: There has been a hysterectomy. Bones/joints: There is moderate to severe facet arthrosis at L4-L5. There is moderate spondylosis at L5-S1 with more mild multilevel degenerative change more superiorly. No acute fractures are identified. Soft tissues: Again noted is soft tissue infiltration within the presacral space, as seen around image 69, series 2, stable, likely postoperative fibrosis. IMPRESSION: 1. Findings suggest multifocal mild enteritis, as described above. Recommend clinical correlation. 2. Liquid stool within the colon, suggesting diarrheal illness. No CT evidence of active colonic inflammation. 3. No evidence of bowel obstruction. 4. Postoperative changes of partial colonic resection. 5. Small sliding hiatal hernia. 6. Status post cholecystectomy and hysterectomy. Thank you for allowing us to participate in the care of your patient. Dictated and Authenticated by: Pasquale Britt MD 01/18/2022 8:28 PM Eastern Time ([place] & [place]) HPI General Date/Time Provider Initiated Documentation: 01/19/22 02:13. HPI Narrative: This is a 56-year-old female with a past medical history of previous colon cancer, and subsequent partial colectomy, as well as vaginal hysterectomy, who has since then had multiple episodes of cramping vomiting ileus and occasionally small bowel obstruction at this time more suspected to be related to adhesions. She presents again today for 1 of these episodes. This morning she woke up and had notable cramps, throughout the day they worsen then in the early afternoon she developed multiple episodes of vomiting. She came to the ER for further assessment. She had labs which were unremarkable, CAT scan which showed enteritis but no obstruction. She was feeling slightly better with Bentyl and fluids, and although normally she is admitted, after long discussion they decided to go home and do a home trial to see if she could continue at home. Unfortunately as soon as she went home her vomiting and cramps persisted and returned, she was unable to keep down p.o. fluids, and came back for reassessment. Currently she has no dry heaving, and only very minimal abdominal cramping. She denies chest pain or shortness of breath. She denies hematemesis. At home prior to arrival she did take Zofran and Bentyl and this did not resolve her symptoms with the first time or the second time. He states that the symptoms currently feel identical to her previous episodes, but not as severe as sometimes past. Related Data Home Medications Medication Instructions Recorded Confirmed acetaminophen 325 mg tablet 2 tab PO Q4H PRN PRN 12/31/16 01/19/22 cetirizine 10 mg tablet 10 mg PO DAILY 07/03/20 01/19/22 estradiol 1 mg tablet 1 mg PO DAILY 07/03/20 01/19/22 lisinopril 5 mg tablet 15 mg PO DAILY 07/03/20 01/19/22 budesonide 0.25 mg/2 mL suspension 0.25 mg INHALATION BID 02/02/21 01/19/22 for nebulization (Pulmicort) dicyclomine 10 mg capsule 10 mg PO BID 02/02/21 01/19/22 fluticasone propionate 50 1 spray INTRANASAL DAILY 02/02/21 01/19/22 mcg/actuation nasal spray,suspension (Flonase Allergy Relief) ondansetron 4 mg disintegrating 4 mg PO Q6H PRN #10 tab 01/18/22 01/19/22 tablet Previous Rx's Medication Instructions Recorded ondansetron 4 mg disintegrating 4 mg PO Q6H PRN #10 tab 01/18/22 tablet Allergies Allergy/AdvReac Type Severity Reaction Status Date / Time latex Allergy Mild Skin Rash Unverified 01/19/22 01:39 Opioids - Morphine Analogues AdvReac Severe N/V/Dizzine Unverified 01/19/22 01:39 ss General Stated Complaint: Nausea/Vomit/Diar DOUG: 3 Review of Systems All systems reviewed & are unremarkable except as noted in HPI and below PFSH All Active Problems (Updated 01/19/22 @ 04:03 by Corey Shaffer DO) Vomiting (Acute) Acute dehydration (Acute) Enteritis (Acute) Intra-abdominal adhesions (Acute) GI bleed (Acute) Hypomagnesemia (Acute) Rectal cancer (Acute) Nausea and vomiting (Acute) Hypokalemia (Acute) Ileus (Acute) Acute abdominal pain (Acute) Internal derangement of right knee (Acute) Tendinitis of left quadriceps tendon (Acute) Small bowel obstruction due to adhesions (Acute) Acute abdominal pain (Acute) Leukocytosis (Acute) Small bowel obstruction (Acute) Medical History Anxiety Hx of small bowel obstruction Hypertension Migraine Rectal cancer treated with partial colectomy (oct 2017) and radiation Rectal prolapse Tubular adenoma of colon (09/30/16) invasive adenocarcinoma arising in a tubular adenoma. Surgical History Biopsy of breast Cholecystectomy Colonoscopy - MAC (09/30/16) Colonoscopy - MAC (01/01/17) Colonoscopy - MAC (06/01/18) colostomy takedown (10/15/17) History of colonoscopy (~03/16/21) left subclavian vein port removal (05/07/18) Partial resection of colon (11/27/16) with colostomy, reversal 10/15/17 Vaginal hysterectomy Family History Mother Dementia Social History Smoking/Tobacco Use Status: Never Smoking risk assessment performed?: Yes Alcohol Intake: current Alcohol Intake frequency: a few times a month Drug use: Never Substance use type: does not use Household members: spouse Housing: house Do you feel safe at home: Yes Do you feel safe in your relationship?: Yes Exam Narrative Exam Narrative: 1.Const: Well-nourished, Well-developed, appearing stated age 2.Eyes: PERRL, no conjunctival injection, and symmetrical lids. 3.ENT: Atraumatic external nose and ears. Dry MM. Neck: Symmetric, trachea midline, No thyromegaly. 4.CVS: +S1/S2, No murmurs or gallops. Peripheral pulses 2+ and equal in all extremities. Brisk capillary refill in all extremities. 5.RESP: Unlabored respiratory effort. Clear to auscultation bilaterally. No wheezes rales or rhonchi 6.GI: Soft, nondistended, no guarding or rebound. No pain to McBurney's point, negative García sign. Bowel sounds are present but throughout. No signs of an acute surgical abdomen. No distention. 7.MSK: Normocephalic/Atraumatic, Extremities w/o deformity or ttp No cyanosis or clubbing, Normal movement of all extremities 8.Skin: Warm, Dry. No rashes or lesions. 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 Sensation grossly intact, no focal neurologic deficits. 10.Psych: (AAO) x3. Appropriate mood and affect Course Vital Signs Vital signs: Vital Signs Temperature 37.0 C 01/19/22 01:37 Pulse 121 H 01/19/22 01:37 Respiratory Rate 18 01/19/22 01:37 Pulse Oximetry 97 01/19/22 01:37 Temperature 36.9 C 01/19/22 02:48 Temperature Source Skin 01/19/22 02:48 Pulse 99 H 01/19/22 02:48 Respiratory Rate 18 01/19/22 02:48 Respiratory Effort Non-Labored 01/19/22 01:40 Blood Pressure 141/91 H 01/19/22 02:48 Blood Pressure Position Supine 01/19/22 01:37 Pulse Oximetry 99 01/19/22 02:48 Oxygen Delivery Method Room Air 01/19/22 02:48 Oxygen Flow Rate 0 01/19/22 02:48 Pain Level 4 01/19/22 01:37 Comment 01/19/22 01:37 Lab/Test Results Lab/Test Results: Laboratory Tests Range/Units 01/19/22 01/19/22 01/19/22 01:55 01:55 03:10 WBC (4.4-10.8) 10^3/uL 9.69 RBC (3.93-5.22) 10^6/uL 4.76 Hgb (11.2-15.7) g/dL 14.2 Hct (36.0-46.0) % 42.5 MCV (80-95) fL 89.3 MCH (27.0-33.0) pg 29.8 MCHC (32.0-36.0) % 33.4 RDW (11.7-14.6) % 12.4 Plt Count (130-400) 10^3/uL 247 MPV (8.0-11.0) fL 9.5 Immature Gran % 0.2 Neutrophils % 91.4 Lymphocytes % 4.2 Monocytes % 3.8 Eosinophils % 0.2 Basophils % 0.2 Nucleated RBC % % 0 Absolute Neutrophils (1.2-6.7) 10^3/uL 8.85 H Absolute Lymphocytes (1.2-3.4) 10^3/uL 0.41 L Absolute Monocytes (0.1-0.8) 10^3/uL 0.37 Absolute Eosinophils (0.0-0.7) 10^3/uL 0.02 Absolute Basophils (0.0-0.2) 10^3/uL 0.02 Sodium (136-145) mmol/L 139 Potassium (3.5-5.1) mmol/L 3.4 L Chloride (98-107) mmol/L 105 Carbon Dioxide (21.0-32.0) mmol/L 25.4 Anion Gap (3-11) mmol/L 8.6 BUN (7-18) mg/dL 13 Creatinine (0.55-1.02) mg/dL 0.9 Estimated GFR/1.73 m2 (mL/min/1.73m2) >= 60.00 Glucose (74-106) mg/dL 137 H Calcium (8.5-10.1) mg/dL 8.0 L Total Bilirubin (0.2-1.0) mg/dL 0.8 AST (15-37) U/L 21 ALT (14-59) U/L 25 Alkaline Phosphatase (46-116) U/L 55 Total Protein (6.4-8.2) g/dL 7.0 Albumin (3.4-5.0) g/dL 3.2 L Lipase (73-393) U/L 25 COVID-19 Source Nasal/Nares PAWSS Have you Been Recently Intoxicated or Drunk Within the Last 30 days?: No Have you Ever Experienced Previous Episodes of Alcohol Withdrawal?: No Have you ever Experienced Withdrawal Seizures?: No Have you ever Experienced Delirium Tremens(DT)s?: No Have you ever undergone Alcohol Rehabilitation Treatment (i.e, inpt ot outpatient treatment programs)?: No Have you ever Experienced Blackouts?: No Have you ever Combined Alcohol with other Downers within the last 90 days?: No Have you ever Combined Alcohol with any other Substance of Abuse during the last 90 days?: No Positive Blood Alcohol level on Presentation? [PCS.BAL]: No Evidence of Increased Autonomic Activity (i.e. HR>120, tremor, sweating, agitation, nausea)?: No Result: 0
[2022-01-19 04:02] LABS: COVID-19 PCR Negative (Negative)
[2022-01-19] MEDS: Normal Saline Flush 10 ML SYR IVP (04:18)
--- NOTE | 2022-01-19 06:34 | W.PM.HP.N ---
Assessment and Plan Assessment and plan (1) Vomiting: Status: Acute Assessment and plan: She is admitted to the hospital and will be treated with intravenous fluids, antiemetics and advance her diet as needed and tolerated. There is no evidence of small bowel obstruction on the CT scan of the abdomen however I do think that her symptoms are probably related to her intra-abdominal adhesions. However I do not think I recommend lysis of adhesions at this time without more evidence of bowel obstruction based on her clinical course and imaging studies. (2) Acute dehydration: Status: Acute Assessment and plan: She appears more hydrated at this time. The IV fluids will be stopped when she is tolerating oral diet. (3) Enteritis: Status: Acute Assessment and plan: This was noted on her CT scan but at this time I do not think she needs antibiotics for her enteritis. 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 She also had abdominal pain. She has had a history of rectal cancer was treated in 2017 with a colon resection and temporary colostomy. She has a history of cholecystectomy and hysterectomy also in terms of abdominal surgery. The rectal cancer seems to be in remission at this time and she is not receiving any active treatment. She has a history of recurrent episodes of nausea, vomiting and abdominal pain that had been felt due to intra-abdominal adhesions. She last had a problem for admission about 3-1/2 years ago. She often gets treated with Bentyl and ondansetron and ketorolac and improves after a day or 2. She had a normal bowel movement yesterday morning but some diarrhea later in the day yesterday but had a more normal bowel movement in the ED. Her symptoms started yesterday morning with some abdominal cramping and by about noon she had increased pain with nausea and vomiting in the afternoon. She presented to the emergency department initially about 630 last night and after evaluation with labs and a CT scan did take some water and kept that down and was felt that she might be able to be treated as an outpatient. However about 3 AM she returned to the hospital with continued abdominal cramps nausea and vomiting. There is no hematemesis or hematochezia. Her pain right now is about 2/10. She has had no urinary symptoms. She states that she typically takes a day or 2 to improve and at this time is not really hungry for IV fluids by mouth but might consider this later today. She is anxious to get up and walk around because that often helps her. She drinks beer occasionally. 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 She not been around anyone's been sick nor has she been exposed to anyone with coronavirus that she is aware of. She has been immunized to coronavirus. Review of Systems Constitutional Constitutional: Denies chills, Denies fever(s) and Reports weakness Cardiovascular Cardiovascular: Denies chest pain, Denies radiating jaw, neck or arm pain, Denies palpitations and Denies dyspnea Respiratory Respiratory: Denies cough and Denies dyspnea Gastrointestinal Gastrointestinal: Reports abdominal pain, Denies melena, Denies hematochezia, Denies heartburn, Reports diarrhea, Reports nausea and Reports vomiting Genitourinary Genitourinary: Denies urinary frequency and Denies difficulty voiding Musculoskeletal Musculoskeletal: Denies abnormal gait Neurologic Neurologic: Denies abnormal gait, Denies confusion and Reports weakness Psychiatric Psychiatric: Denies confusion Endocrine Endocrine: Denies palpitations PFSH All Active Problems (Updated 01/19/22 @ 04:03 by Corey Shaffer DO) Vomiting (Acute) Acute dehydration (Acute) Enteritis (Acute) Intra-abdominal adhesions (Acute) GI bleed (Acute) Hypomagnesemia (Acute) Rectal cancer (Acute) Nausea and vomiting (Acute) Hypokalemia (Acute) Ileus (Acute) Acute abdominal pain (Acute) Internal derangement of right knee (Acute) Tendinitis of left quadriceps tendon (Acute) Small bowel obstruction due to adhesions (Acute) Acute abdominal pain (Acute) Leukocytosis (Acute) Small bowel obstruction (Acute) Medical History Anxiety Hx of small bowel obstruction Hypertension Migraine Rectal cancer treated with partial colectomy (oct 2017) and radiation Rectal prolapse Tubular adenoma of colon (09/30/16) invasive adenocarcinoma arising in a tubular adenoma. Surgical History Biopsy of breast Cholecystectomy Colonoscopy - MAC (09/30/16) Colonoscopy - MAC (01/01/17) Colonoscopy - MAC (06/01/18) colostomy takedown (10/15/17) History of colonoscopy (~03/16/21) left subclavian vein port removal (05/07/18) Partial resection of colon (11/27/16) with colostomy, reversal 10/15/17 Vaginal hysterectomy Family History Mother Dementia Social History Smoking/Tobacco Use Status: Never Smoking risk assessment performed?: Yes Alcohol Intake: current Alcohol Intake frequency: a few times a month Drug use: Never Substance use type: does not use Household members: spouse Housing: house Do you feel safe at home: Yes Do you feel safe in your relationship?: Yes Meds Allergies and Home Medications Allergies Allergy/AdvReac Type Severity Reaction Status Date / Time latex Allergy Mild Skin Rash Unverified 01/19/22 01:39 Opioids - Morphine Analogues AdvReac Severe N/V/Dizzine Unverified 01/19/22 01:39 ss Home Medications Medication Instructions Recorded Confirmed Type acetaminophen 325 mg tablet 2 tab PO Q4H PRN PRN 12/31/16 01/19/22 History cetirizine 10 mg tablet 10 mg PO DAILY 07/03/20 01/19/22 History estradiol 1 mg tablet 1 mg PO DAILY 07/03/20 01/19/22 History lisinopril 5 mg tablet 15 mg PO DAILY 07/03/20 01/19/22 History budesonide 0.25 mg/2 mL suspension 0.25 mg INHALATION BID 02/02/21 01/19/22 History for nebulization (Pulmicort) dicyclomine 10 mg capsule 10 mg PO BID 02/02/21 01/19/22 History fluticasone propionate 50 1 spray INTRANASAL DAILY 02/02/21 01/19/22 History mcg/actuation nasal spray,suspension (Flonase Allergy Relief) ondansetron 4 mg disintegrating 4 mg PO Q6H PRN #10 tab 01/18/22 01/19/22 Rx tablet Exam Const General: cooperative, healthy appearing, comfortable, no acute distress, not ill appearing and well hydrated Nutritional Appearance: average body habitus Orientation: alert, awake and oriented x3 HENMT Head: normal to inspection Mouth: oral mucosae normal and moist mucous membranes Eyes General: appearance normal, both eyes and all related structures Neck Neck: normal visual inspection and no lymphadenopathy Resp Auscultation: clear to auscultation bilaterally, no rales and no wheezes Cardio Rate: regular rate Rhythm: regular rhythm Heart Sounds: S1 normal, S2 normal, no gallops and no murmurs GI Palpation: soft, no hepatosplenomegaly, not firm, no masses and nontender Neuro Cranial Nerves: CN's II-XI intact bilaterally and hearing normal Extrem General: normal to inspection, no calf tenderness bilaterally, no cyanosis and no edema Results Labs Result diagrams: 01/19/22 01:55 01/19/22 01:55 Labs: Laboratory Results - last 24 hr 01/19/22 01/19/22 01/19/22 01:55 01:55 03:10 WBC 9.69 RBC 4.76 Hgb 14.2 Hct 42.5 MCV 89.3 MCH 29.8 MCHC 33.4 RDW 12.4 Plt Count 247 MPV 9.5 Immature Gran % 0.2 Neutrophils % 91.4 Lymphocytes % 4.2 Monocytes % 3.8 Eosinophils % 0.2 Basophils % 0.2 Nucleated RBC % 0 Absolute Neutrophils 8.85 H Absolute Lymphocytes 0.41 L Absolute Monocytes 0.37 Absolute Eosinophils 0.02 Absolute Basophils 0.02 Sodium 139 Potassium 3.4 L Chloride 105 Carbon Dioxide 25.4 Anion Gap 8.6 BUN 13 Creatinine 0.9 Estimated GFR/1.73 m2 >= 60.00 Glucose 137 H Calcium 8.0 L Total Bilirubin 0.8 AST 21 ALT 25 Alkaline Phosphatase 55 Total Protein 7.0 Albumin 3.2 L Lipase 25 COVID-19 Source Nasal/Nares SARS-CoV-2 (PCR) Negative Last Vital Signs Temp 37.5 C 01/19/22 04:43 Pulse 90 01/19/22 04:43 Resp 18 01/19/22 04:43 BP 135/82 01/19/22 04:43 Pulse Ox 96 01/19/22 04:43 PAWSS Have you Been Recently Intoxicated or Drunk Within the Last 30 days?: No Have you Ever Experienced Previous Episodes of Alcohol Withdrawal?: No Have you ever Experienced Withdrawal Seizures?: No Have you ever Experienced Delirium Tremens(DT)s?: No Have you ever undergone Alcohol Rehabilitation Treatment (i.e, inpt ot outpatient treatment programs)?: No Have you ever Experienced Blackouts?: No Have you ever Combined Alcohol with other Downers within the last 90 days?: No Have you ever Combined Alcohol with any other Substance of Abuse during the last 90 days?: No Positive Blood Alcohol level on Presentation? [PCS.BAL]: No Evidence of Increased Autonomic Activity (i.e. HR>120, tremor, sweating, agitation, nausea)?: No Result: 0
[2022-01-19] MEDS: Ketorolac 15 MG/ML VIAL IVP ×3 (07:20→19:56)
[2022-01-19 08:09] LABS: ALT 29 U/L (14-59); AST 20 U/L (15-37); Alkaline Phosphatase 50 U/L (46-116); Anion Gap 9.7 mmol/L (3-11); BUN 11 mg/dL (7-18); Bilirubin, Total 0.6 mg/dL (0.2-1.0); CO2 22.3 mmol/L (21.0-32.0); CREATININE 0.7 mg/dL (0.55-1.02); Calcium 7.6 mg/dL (8.5-10.1); Chloride 108 mmol/L (98-107); Glucose 112 mg/dL (74-106); Potassium 3.4 mmol/L (3.5-5.1); Sodium 140 mmol/L (136-145); Total Protein 6.6 g/dL (6.4-8.2)
[2022-01-19] MEDS: Dicyclomine 10 MG CAP PO ×2 (08:35→19:56)
[2022-01-19] MEDS: Fluticasone NASAL SPRAY 16 GM BTL NS (08:35)
[2022-01-19] MEDS: Lisinopril 5 MG TAB 15 MG PO (08:43)
[2022-01-19] MEDS: Potassium Chloride Liquid 20 MEQ PKT 40 MEQ PO (10:25)
[2022-01-19 12:05] LABS: Magnesium 1.8 mg/dL (1.8-2.4)
[2022-01-19] MEDS: Calcium Carbonate *TUMS* 500 MG CHEW 1000 MG PO ×2 (13:20→19:56)
[2022-01-19] MEDS: Loperamide 2 MG CAP PO (15:38)
--- NOTE | 2022-01-19 16:12 | PGE_ITS ---
Date of Service Date of service: 01/19/22 Time of Service: 16:13 Assessment and Plan Assessment and plan (1) Vomiting: Start date: 01/19/22 Start time: 16:16 Status: Acute Assessment and plan: She is admitted to the hospital and will be treated with intravenous fluids, antiemetics and advance her diet as needed and tolerated. She is feeling better already and diet slowly being advanced no evidence of small bowel obstruction on the CT scan of the abdomen however I do think that her symptoms are probably related to her intra-abdominal adhesions. She has been dealing with these flare ups for over 4 years and can usually control them at home. This was the first one in four years she has not been able to control. Toradol works best for her It starts with loss of appetite, than she can go to clear liquids, that usually helps and she has antiemetics at home. Since toradol works so well recommend this at discharge to take when she is starting to loose appetite will also help with inflammation. (2) Acute dehydration: Start date: 01/19/22 Start time: 16:20 Status: Acute Assessment and plan: Continue IVF at this time (3) Enteritis: Start date: 01/19/22 Start time: 16:21 Status: Acute Assessment and plan: Due to her marked improvement antibiotics not warranted at this time I do not think she needs antibiotics for her enteritis. Subjective Subjective Patient reports: feels better Interval history since last seen: Patient sitting up in bed, pain has improved. Tolerating liquids. She is going to try crackers. She knows she is better when she can eat her chicken and carrots. She does not have an appetite at this time, but it is slowly coming back Exam Const General: cooperative, comfortable and no acute distress Nutritional Appearance: obese Orientation: alert, awake and oriented x3 [facility] Head: normal to inspection, no palpable skull fracture, normocephalic and atraumatic Eyes General: appearance normal, both eyes and all related structures Eyelids: eyelids normal Pupils: PERRL EOM: EOM intact bilaterally Neck Neck: normal visual inspection, full ROM, no lymphadenopathy and no JVD Lymphatic: no lymphadenopathy noted Resp Effort & Inspection: normal respiratory effort Auscultation: clear to auscultation bilaterally Cardio Jugular venous pressure: no JVD Rhythm: regular rhythm Heart Sounds: S1 normal GI Inspection: normal to inspection and large pannus Palpation: soft and no hepatosplenomegaly Percussion: normal to percussion Auscultation: hypoactive bowel sounds Skin General skin exam: no rashes or lesions noted Neuro General: patient alert, patient awake and patient oriented x3 Cognition: normal cognition Speech: speech normal Gait: normal gait Extrem General: normal to inspection, full ROM and no clubbing, cyanosis or edema Objective Last Vital Signs Temp 36.4 C L 01/19/22 13:32 Pulse 82 01/19/22 07:56 Resp 16 01/19/22 07:56 BP 126/86 01/19/22 07:56 Pulse Ox 94 01/19/22 07:56 Laboratory Results - last 24 hr 01/19/22 01/19/22 01/19/22 01:55 01:55 03:10 WBC 9.69 RBC 4.76 Hgb 14.2 Hct 42.5 MCV 89.3 MCH 29.8 MCHC 33.4 RDW 12.4 Plt Count 247 MPV 9.5 Immature Gran % 0.2 Neutrophils % 91.4 Lymphocytes % 4.2 Monocytes % 3.8 Eosinophils % 0.2 Basophils % 0.2 Nucleated RBC % 0 Absolute Neutrophils 8.85 H Absolute Lymphocytes 0.41 L Absolute Monocytes 0.37 Absolute Eosinophils 0.02 Absolute Basophils 0.02 Sodium 139 Potassium 3.4 L Chloride 105 Carbon Dioxide 25.4 Anion Gap 8.6 BUN 13 Creatinine 0.9 Estimated GFR/1.73 m2 >= 60.00 Glucose 137 H Calcium 8.0 L Magnesium Total Bilirubin 0.8 AST 21 ALT 25 Alkaline Phosphatase 55 Total Protein 7.0 Albumin 3.2 L Lipase 25 COVID-19 Source Nasal/Nares SARS-CoV-2 (PCR) Negative 01/19/22 01/19/22 07:15 07:15 WBC RBC Hgb Hct MCV MCH MCHC RDW Plt Count MPV Immature Gran % Neutrophils % Lymphocytes % Monocytes % Eosinophils % Basophils % Nucleated RBC % Absolute Neutrophils Absolute Lymphocytes Absolute Monocytes Absolute Eosinophils Absolute Basophils Sodium 140 Potassium 3.4 L Chloride 108 H Carbon Dioxide 22.3 Anion Gap 9.7 BUN 11 Creatinine 0.7 Estimated GFR/1.73 m2 >= 60.00 Glucose 112 H Calcium 7.6 L Magnesium 1.8 Total Bilirubin 0.6 AST 20 ALT 29 Alkaline Phosphatase 50 Total Protein 6.6 Albumin 3.0 L Lipase COVID-19 Source SARS-CoV-2 (PCR) PAWSS Have you Been Recently Intoxicated or Drunk Within the Last 30 days?: No Have you Ever Experienced Previous Episodes of Alcohol Withdrawal?: No Have you ever Experienced Withdrawal Seizures?: No Have you ever Experienced Delirium Tremens(DT)s?: No Have you ever undergone Alcohol Rehabilitation Treatment (i.e, inpt ot outpatient treatment programs)?: No Have you ever Experienced Blackouts?: No Have you ever Combined Alcohol with other Downers within the last 90 days?: No Have you ever Combined Alcohol with any other Substance of Abuse during the last 90 days?: No Positive Blood Alcohol level on Presentation? [PCS.BAL]: No Evidence of Increased Autonomic Activity (i.e. HR>120, tremor, sweating, agitation, nausea)?: No Result: 0
--- NOTE | 2022-01-19 19:37 | INITIAL_ITS ---
- If Service Date Differs Date of service: 01/19/22 Time of Service: 19:37 Care Management Initial Assess REASON FOR HOSPITALIZATION:: Vomiting PAST MEDICAL HISTORY/PAST SURGICAL HISTORY:: All Active Problems. Vomiting (Acute). Acute dehydration (Acute). Enteritis (Acute). Intra-abdominal adhesions (Acute). GI bleed (Acute). Hypomagnesemia (Acute). Rectal cancer (Acute). Nausea and vomiting (Acute). Hypokalemia (Acute). Ileus (Acute). Acute abdominal pain (Acute). Internal derangement of right knee (Acute). Tendinitis of left quadriceps tendon (Acute). Small bowel obstruction due to adhesions (Acute). Acute abdominal pain (Acute). Leukocytosis (Acute). Small bowel obstruction (Acute). Medical History. Anxiety. Hx of small bowel obstruction. Hypertension. Migraine. Rectal cancer. treated with partial colectomy (oct 2017) and radiation. Rectal prolapse. Tubular adenoma of colon (09/30/16). invasive adenocarcinoma arising in a tubular adenoma. Surgical History. Biopsy of breast. Cholecystectomy. Colonoscopy - MAC (09/30/16). Colonoscopy - MAC (01/01/17). Colonoscopy - MAC (06/01/18). colostomy takedown (10/15/17). History of colonoscopy (~03/16/21). left subclavian vein port removal (05/07/18). Partial resection of colon (11/27/16). with colostomy, reversal 10/15/17. Vaginal hysterectomy PREVIOUS FUNCTIONAL STATUS/SOCIAL/FAMILY SUPPORTS:: Brooke lives in [facility], alone with her dog. She has many close friends who live nearby and are very supportive. 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 She is independent at baseline. CURRENT FUNCTIONAL STATUS:: Brooke was sitting up in bed when CM met with her. She was pleasant and engaged in conversation. She reported that per provider, she will likely remain overnight, and may be able to discharge home tomorrow. She stated that she has been hospitalized for this previously, and is comfortable staying. She is very happy with the care she is receiving. Per report, she will be started on clear liquids, and her diet will be advanced as tolerated. CM will continue to follow. ADVANCE DIRECTIVES:: On file, Maggie Christina listed as agent. Has patient been provided with info about the portal/API?: Yes Did the patient sign up for the portal?: No CODE STATUS:: Full Code INSURANCE COVERAGE / FINANCIAL ISSUES:: MCR/ BCBS CURRENT HOME/COMMUNITY SERVICES/EQUIPMENT:: No current services or equipment. PRIMARY CARE PHYSICIAN:: Willian Petersen POTENTIAL DISCHARGE NEEDS:: Evaluations for further needs, follow up appointments. PATIENT/FAMILY EDUCATION NEEDS:: Review discharge instructions and limitations, discussion of self care needs including ask me three. ANTICIPATED BARRIERS TO DISCHARGE:: none TRANSPORTATION:: Via private vehicle by friends. PLAN:: Brooke will return home when medically cleared. She will be driven home by a friend via private vehicle. She will follow up with her PCP and discharge plan of care. CM will continue to follow.
[2022-01-19] MEDS: Budesonide 0.25 MG/2 ML UPD VIAL IH (19:56)
[2022-01-20] MEDS: Normal Saline 1,000 ML 150 ML IV ×2 (02:44→09:32)
[2022-01-20] MEDS: Ketorolac 15 MG/ML VIAL IVP (05:42)
[2022-01-20 07:33] LABS: Abs Immature Grans 0.02 10^3/uL (0.0-0.06); Absolute Basophil Count 0.01 10^3/uL (0.0-0.2); Absolute Eosinophil Count 0.06 10^3/uL (0.0-0.7); Absolute Lymphocyte Count 1.17 10^3/uL (1.2-3.4); Absolute Monocyte Count 0.72 10^3/uL (0.1-0.8); Absolute Neutrophil Count 3.17 10^3/uL (1.2-6.7); Basophils % 0.2; Eosinophils % 1.2; HCT 34.5 % (36.0-46.0); HGB 11.6 g/dL (11.2-15.7); Immature Grans % 0.4; Lymphocytes % 22.7; MCH 29.9 pg (27.0-33.0); MCHC 33.6 % (32.0-36.0); MCV 88.9 fL (80-95); MPV 9.6 fL (8.0-11.0); Neutrophils % 61.5; Nucleated RBC 0 %; Platelet Count 184 10^3/uL (130-400); RBC 3.88 10^6/uL (3.93-5.22); RDW 12.9 % (11.7-14.6); RDW-SD 42.4 fL; WBC 5.15 10^3/uL (4.4-10.8)
[2022-01-20 07:38] LABS: BUN 6 mg/dL (7-18); CREATININE 0.7 mg/dL (0.55-1.02); Calcium 7.1 mg/dL (8.5-10.1); Chloride 110 mmol/L (98-107); Glucose 88 mg/dL (74-106); Magnesium 1.6 mg/dL (1.8-2.4); Potassium 3.3 mmol/L (3.5-5.1); Sodium 142 mmol/L (136-145)
[2022-01-20] MEDS: Calcium Carbonate *TUMS* 500 MG CHEW 1000 MG PO (08:02)
[2022-01-20] MEDS: Dicyclomine 10 MG CAP PO ×2 (08:02→21:01)
[2022-01-20] MEDS: Lisinopril 5 MG TAB 15 MG PO (08:02)
[2022-01-20] MEDS: Fluticasone NASAL SPRAY 16 GM BTL NS (08:05)
[2022-01-20 08:06] VITALS: BP 137/86; PULSE 71; RESP 16; TEMP 37; O2SAT 95
[2022-01-20] MEDS: Budesonide 0.25 MG/2 ML UPD VIAL IH (08:35)
[2022-01-20] MEDS: Potassium Chloride Liquid 20 MEQ PKT 40 MEQ PO ×2 (09:57→15:57)
[2022-01-20] MEDS: MAGNESIUM SULFATE 4 GM/100 ML BAG IVPB (09:59)
[2022-01-20] MEDS: Cholecalciferol (Vitamin D3) 400 UNIT TAB PO (10:05)
[2022-01-20] MEDS: Normal Saline Flush 10 ML SYR IVP ×3 (11:00→20:50)
--- NOTE | 2022-01-20 11:07 | W.SURGCON ---
Date of service: 01/20/22 Time of Service: 11:42 Assessment and Plan Assessment and plan (1) Ileus: Status: Acute Assessment and plan: -Likely combination of adhesions as well as possible exposure to bad food given acuity of onset -Clinically improving, advance diet as tolerated, diarrhea seems to have resolved -Replete electrolytes, IVF until tolerating adequate PO -Can recheck TSH and UA to confirm no other contributing factors (2) Intra-abdominal adhesions: Status: Acute (3) Nausea and vomiting: Status: Acute (4) Hypokalemia: Status: Acute History of Present Illness Narrative: 56 year old female well known to our service who presented to the ER on Friday night complaining of nausea, vomiting and crampy abdominal pain. Patient states she gets recurrent bowel obstructions but has been able to manage them at home for the last 4 years. She reports eating at a local restaurant just prior to the onset of her current symptoms. No other sick contacts. Reports feeling much better today with less nausea, no vomiting and no more diarrhea. A CT scan done in the ER did not show overt obstruction and she infact had mostly decompressed small bowel. She was admitted by the medicine team for observation but due to persistent symptoms I was asked to see the patient. She reports she is able to sip liquids without increased nausea and pain has been colicky, although improved and controlled with PRN toradol.C diff was ordered but patient has not had further episodes of diarrhea. She remains in good spirits throughout my encounter and clinically appears well and non-toxic. Consults Consult date: 01/20/22 Requesting physician: Xochilt Guzman Review of Systems Constitutional Constitutional: Reports system reviewed and no additional complaints, except as documented, Reports anorexia, Denies chills, Denies fever(s), Reports poor appetite and Denies weakness Cardiovascular Cardiovascular: Denies syncope, Denies rapid heart rate, Denies leg edema and Denies dyspnea Respiratory Respiratory: Denies dyspnea Gastrointestinal Gastrointestinal: Reports abdominal pain (crampy), Denies constipation, Reports diarrhea, Reports loose stools, Reports nausea and Reports vomiting (resolved) Neurologic Neurologic: Denies syncope and Denies weakness PFSH All Active Problems (Updated 01/20/22 @ 15:44 by Xochilt Guzman, PRESS CLE[employer]ER) Hypocalcemia (Acute) Vomiting (Acute) Enteritis (Acute) Intra-abdominal adhesions (Acute) GI bleed (Acute) Hypomagnesemia (Acute) Rectal cancer (Acute) Nausea and vomiting (Acute) Hypokalemia (Acute) Ileus (Acute) Acute abdominal pain (Acute) Internal derangement of right knee (Acute) Tendinitis of left quadriceps tendon (Acute) Small bowel obstruction due to adhesions (Acute) Acute abdominal pain (Acute) Leukocytosis (Acute) Small bowel obstruction (Acute) Medical History Anxiety Hx of small bowel obstruction Hypertension Migraine Rectal cancer treated with partial colectomy (oct 2017) and radiation Rectal prolapse Tubular adenoma of colon (09/30/16) invasive adenocarcinoma arising in a tubular adenoma. Surgical History Biopsy of breast Cholecystectomy Colonoscopy - MAC (09/30/16) Colonoscopy - MAC (01/01/17) Colonoscopy - MAC (06/01/18) colostomy takedown (10/15/17) History of colonoscopy (~03/16/21) left subclavian vein port removal (05/07/18) Partial resection of colon (11/27/16) with colostomy, reversal 10/15/17 Vaginal hysterectomy Family History Mother Dementia Social History Smoking/Tobacco Use Status: Never Smoking risk assessment performed?: Yes Alcohol Intake: current Alcohol Intake frequency: a few times a month Drug use: Never Substance use type: does not use Household members: spouse Housing: house Do you feel safe at home: Yes Do you feel safe in your relationship?: Yes Exam Const General: cooperative, healthy appearing, comfortable and no acute distress Nutritional Appearance: average body habitus [facility] Head: normal to inspection, normocephalic and atraumatic Resp Effort & Inspection: normal respiratory effort, able to speak in complete sentences, no audible wheezes, no cough and no respiratory distress Cardio Rate: regular rate Rhythm: regular rhythm GI Inspection: normal to inspection and non-distended Palpation: soft, no guarding and nontender Percussion: dullness to percussion Neuro General: patient alert, patient awake and patient oriented x3 Cranial Nerves: CN's II-XI intact bilaterally Results Last Vital Signs Temp 98.6 F 01/20/22 08:06 Pulse 71 01/20/22 08:06 Resp 16 01/20/22 08:06 BP 137/86 01/20/22 08:06 Pulse Ox 95 01/20/22 08:06 Labs Result diagrams: 01/20/22 06:50 01/20/22 06:50 Labs: Laboratory Results - last 24 hr 01/19/22 01/20/22 01/20/22 07:15 06:50 06:50 WBC 5.15 RBC 3.88 L Hgb 11.6 D Hct 34.5 L MCV 88.9 MCH 29.9 MCHC 33.6 RDW 12.9 Plt Count 184 MPV 9.6 Immature Gran % 0.4 Neutrophils % 61.5 Lymphocytes % 22.7 Monocytes % 14.0 Eosinophils % 1.2 Basophils % 0.2 Nucleated RBC % 0 Absolute Neutrophils 3.17 Absolute Lymphocytes 1.17 L Absolute Monocytes 0.72 Absolute Eosinophils 0.06 Absolute Basophils 0.01 Sodium 142 Potassium 3.3 L Chloride 110 H Carbon Dioxide 23.0 Anion Gap 9.0 BUN 6 L Creatinine 0.7 Estimated GFR/1.73 m2 >= 60.00 Glucose 88 Calcium 7.1 L Magnesium 1.8 1.6 L
[2022-01-20] MEDS: Ketorolac 30 MG/ML VIAL IVP ×2 (12:12→20:49)
[2022-01-20 14:49] VITALS: BP 150/97; PULSE 71; RESP 16; TEMP 36.7; O2SAT 95
--- NOTE | 2022-01-20 15:23 | W.PM.PROGNOT ---
Date of Service Date of service: 01/20/22 Time of Service: :30 Assessment and Plan Assessment and plan (1) Vomiting: Start date: 01/20/22 Start time: 10:30 Status: Acute Assessment and plan: Did not do well overnight, pain and diarrhea with eating. She stopped eating and drank only sips. This am when I saw her she ambulatory in the hallway. She was pleasant and in good spirits. Now able to tolerate clears and ayleen crackers will advance diet to soft and trial, seen by surgery, no note as of yet. (2) Acute dehydration: Start date: 01/20/22 Start time: :30 Status: Resolved Assessment and plan: Continue IVF at this time, though she appears euvolemic, she is not eating will turn IVF down (3) Enteritis: Start date: 01/20/22 Start time: :30 Status: Acute Assessment and plan: antibiotics not warranted at this time, no luekocytosis, or abdominal tenderness wiht palpation. (4) Hypocalcemia: Start date: 01/20/22 Start time: :30 Status: Acute Assessment and plan: calcium level is 7.1 corrected calcium with albumin would be 7.9. calcium carbonate with vitamin d ordered for correction (5) Hypokalemia: Start date: 01/20/22 Start time: 10:30 Status: Acute Assessment and plan: K level 3.3 replete with oral supplementation and repeat levels in am. (6) Hypomagnesemia: Start date: 01/20/22 Start time: 10:30 Status: Acute Assessment and plan: mag 1.6 repleted with IV and recheck in am. discussed with Dr. Holliday Subjective Subjective Patient reports: still having pain Interval history since last seen: patient feels she pushed the food too fast. She was unable to tolerate liquids and had pain. She stopped liquids pain improved. Will consult surgery as they know her well. At this time cramping has subsided and she just feels a heaviness. No pain with palpation. Ambulatory in the . Await surgical input, she was also having diarrhea overnight, stool pathogens sent out. Awaiting results. Exam Const General: cooperative, comfortable and no acute distress Nutritional Appearance: obese Orientation: alert, awake and oriented x3 [facility] Head: normal to inspection, no palpable skull fracture, normocephalic and atraumatic Eyes General: appearance normal, both eyes and all related structures Eyelids: eyelids normal Pupils: PERRL EOM: EOM intact bilaterally Neck Neck: normal visual inspection, full ROM, no lymphadenopathy and no JVD Lymphatic: no lymphadenopathy noted Resp Effort & Inspection: normal respiratory effort Auscultation: clear to auscultation bilaterally Cardio Jugular venous pressure: no JVD Rate: regular rate Rhythm: regular rhythm Heart Sounds: S1 normal GI Inspection: normal to inspection and large pannus Palpation: soft and no hepatosplenomegaly Percussion: normal to percussion Auscultation: hypoactive bowel sounds Skin General skin exam: no rashes or lesions noted Neuro General: patient alert, patient awake and patient oriented x3 Cognition: normal cognition Speech: speech normal Gait: normal gait Extrem General: normal to inspection, full ROM and no clubbing, cyanosis or edema Objective Last Vital Signs Temp 36.7 C 01/20/22 14:49 Pulse 71 01/20/22 14:49 Resp 16 01/20/22 14:49 BP 150/97 H 01/20/22 14:49 Pulse Ox 95 01/20/22 14:49 Laboratory Results - last 24 hr 01/20/22 01/20/22 06:50 06:50 WBC 5.15 RBC 3.88 L Hgb 11.6 D Hct 34.5 L MCV 88.9 MCH 29.9 MCHC 33.6 RDW 12.9 Plt Count 184 MPV 9.6 Immature Gran % 0.4 Neutrophils % 61.5 Lymphocytes % 22.7 Monocytes % 14.0 Eosinophils % 1.2 Basophils % 0.2 Nucleated RBC % 0 Absolute Neutrophils 3.17 Absolute Lymphocytes 1.17 L Absolute Monocytes 0.72 Absolute Eosinophils 0.06 Absolute Basophils 0.01 Sodium 142 Potassium 3.3 L Chloride 110 H Carbon Dioxide 23.0 Anion Gap 9.0 BUN 6 L Creatinine 0.7 Estimated GFR/1.73 m2 >= 60.00 Glucose 88 Calcium 7.1 L Magnesium 1.6 L PAWSS Have you Been Recently Intoxicated or Drunk Within the Last 30 days?: No Have you Ever Experienced Previous Episodes of Alcohol Withdrawal?: No Have you ever Experienced Withdrawal Seizures?: No Have you ever Experienced Delirium Tremens(DT)s?: No Have you ever undergone Alcohol Rehabilitation Treatment (i.e, inpt ot outpatient treatment programs)?: No Have you ever Experienced Blackouts?: No Have you ever Combined Alcohol with other Downers within the last 90 days?: No Have you ever Combined Alcohol with any other Substance of Abuse during the last 90 days?: No Positive Blood Alcohol level on Presentation? [PCS.BAL]: No Evidence of Increased Autonomic Activity (i.e. HR>120, tremor, sweating, agitation, nausea)?: No Result: 0
[2022-01-20] MEDS: Lactated Ringers 1,000 ML 75 ML IV (17:47)
[2022-01-20] MEDS: Calcium 600mg/Vit D 200U TAB 1 TAB PO (20:53)
[2022-01-20 23:46] VITALS: BP 133/87; PULSE 61; RESP 17; TEMP 35.8; O2SAT 97
--- NOTE | 2022-01-21 | DI.RAD_ITS ---
Exam(s) XR ABDOMEN FLAT UPRIGHT EXAM: 2D digital imaging was performed. CLINICAL HISTORY: evaluate for ileus/sbo. COMPARISON: CT CT ABDOMEN PELVIS W from 01/18/2022 TECHNIQUE: Supine and upright views of the abdomen was performed. FINDINGS: Visualized lung bases are clear. No free air. A cast scattered in small and large bowel. No findin gs to suggest obstruction. Stool left side of the colon. Cholecystectomy clips. No visible urinary tract calculi. IMPRESSION: 1. Nonobstructive bowel gas pattern. 2. No radiopaque calculi. 3. No free air. DATA REPOSITORY: RADIATION DOSE DELIVERED:
[2022-01-21 07:23] VITALS: BP 129/83; PULSE 54; RESP 17; TEMP 35.9; O2SAT 100
[2022-01-21 07:25] LABS: Anion Gap 6.2 mmol/L (3-11); BUN 5 mg/dL (7-18); CO2 25.8 mmol/L (21.0-32.0); CREATININE 0.7 mg/dL (0.55-1.02); Calcium 7.9 mg/dL (8.5-10.1); Chloride 107 mmol/L (98-107); Glucose 100 mg/dL (74-106); Magnesium 2.1 mg/dL (1.8-2.4); Potassium 3.5 mmol/L (3.5-5.1); Sodium 139 mmol/L (136-145)
[2022-01-21] MEDS: Lactated Ringers 1,000 ML 75 ML IV (07:36)
[2022-01-21 07:51] LABS: Vitamin D 25 Total 13.2 ng/mL (30-100)
[2022-01-21] MEDS: Calcium 600mg/Vit D 200U TAB 1 TAB PO ×2 (07:58→19:48)
[2022-01-21] MEDS: Fluticasone NASAL SPRAY 16 GM BTL NS (07:58)
[2022-01-21] MEDS: Dicyclomine 10 MG CAP PO ×2 (07:58→19:48)
[2022-01-21] MEDS: Lisinopril 5 MG TAB 15 MG PO (07:58)
[2022-01-21 08:02] VITALS: PULSE 64
--- NOTE | 2022-01-21 09:46 | W.PM.PROGNOT ---
Date of Service Date of service: 01/21/22 Time of Service: 08:01 Assessment and Plan Assessment and plan (1) Ileus: Status: Acute Assessment and plan: -Likely combination of adhesions as well as possible exposure to bad food given acuity of onset -Clinically improving, advance diet as tolerated, diarrhea has resolved -Replete electrolytes, IVF until tolerating adequate PO -Encouraged ambulation and activity OOB as tolerated. (2) Intra-abdominal adhesions: Status: Acute (3) Nausea and vomiting: Status: Acute (4) Hypokalemia: Status: Acute Subjective Subjective Interval history since last seen: Patient reports she is starting to feel better. No BMs in over 30+ hours. Patient has continued with clear liquids, given cramping and nausea. She tried a piece of toast last night, which she didn't feel set well. Denies any fevers, chills or night sweats. She is eager to be out of her room ambulation. Exam Const General: cooperative, healthy appearing and comfortable Orientation: alert and oriented x3 Resp Effort & Inspection: normal respiratory effort, no audible wheezes and no cough Objective Last Vital Signs Temp 35.9 C L 01/21/22 07:23 Pulse 64 01/21/22 08:02 Resp 17 01/21/22 07:23 BP 129/83 01/21/22 07:23 Pulse Ox 100 01/21/22 07:23 Laboratory Results - last 24 hr 01/21/22 01/21/22 06:41 06:41 Sodium 139 Potassium 3.5 Chloride 107 Carbon Dioxide 25.8 Anion Gap 6.2 BUN 5 L Creatinine 0.7 Estimated GFR/1.73 m2 >= 60.00 Glucose 100 Calcium 7.9 L Magnesium 2.1 25-OH Vitamin D Total 13.2 L PAWSS Have you Been Recently Intoxicated or Drunk Within the Last 30 days?: No Have you Ever Experienced Previous Episodes of Alcohol Withdrawal?: No Have you ever Experienced Withdrawal Seizures?: No Have you ever Experienced Delirium Tremens(DT)s?: No Have you ever undergone Alcohol Rehabilitation Treatment (i.e, inpt ot outpatient treatment programs)?: No Have you ever Experienced Blackouts?: No Have you ever Combined Alcohol with other Downers within the last 90 days?: No Have you ever Combined Alcohol with any other Substance of Abuse during the last 90 days?: No Positive Blood Alcohol level on Presentation? [PCS.BAL]: No Evidence of Increased Autonomic Activity (i.e. HR>120, tremor, sweating, agitation, nausea)?: No Result: 0
[2022-01-21] MEDS: Potassium Chloride 20 MEQ TABCR 40 MEQ PO (10:36)
[2022-01-21] MEDS: Ergocalciferol 50000 UNITS CAP PO (12:02)
--- NOTE | 2022-01-21 16:43 | PDOC.CMPRO ---
- If Service Date Differs Date of service: 01/21/22 Time of Service: 16:43 Care Management Progress Note S/O: Brooke was walking around the halls today, and had visitors keeping her busy. Per RN, she tolerated toast and fluids today. She had a surgical consultation today for an Ileus, which they report is likely a combination of adhesions as well as possible exposure to bad food. Per report, she was having loose stool, therefore a CDiff test was ordered. She will continue to be monitored. CM will continue to follow. A: Brooke is a 56 year old female admitted to [facility] on 01/19/22 with vomiting. P: Brooke will return home when medically cleared. She will be driven home by a friend via private vehicle. She will follow up with her PCP and discharge plan of care. CM will continue to follow.
[2022-01-21 17:33] VITALS: BP 156/97; PULSE 63; RESP 16; TEMP 35.7; O2SAT 100
--- NOTE | 2022-01-21 18:13 | W.PM.PROGNOT ---
Date of Service Date of service: 01/21/22 Time of Service: 18 Assessment and Plan Assessment and plan (1) Low vitamin D level: Start date: 01/21/22 Start time: :18 Status: Acute Assessment and plan: Vitamin D level started on 50,000 units a week. Will defer to PCP to continue with f/u of vitamin d level (2) Vomiting: Start date: 01/21/22 Start time: :18 Status: Acute Assessment and plan: Did well able to tolerate toast and broth today. If she can tolerate eggs tomorrow she can be discharged. Surgery thinks maybe a viral illness. Patient states feeling better, pain improved (3) Acute dehydration: Start date: 01/21/22 Start time: 18 Status: Resolved Assessment and plan: Patient appears euvolemic, tolerating fluids, IVF dcd. (4) Enteritis: Start date: 01/21/22 Start time: :18 Status: Resolved Assessment and plan: Likely viral, per surgery. (5) Hypocalcemia: Start date: 01/21/22 Start time: 18 Status: Resolved Assessment and plan: corrected to 7.9 appropriate level (6) Hypokalemia: Start date: 01/21/22 Start time: :18 Status: Resolved Assessment and plan: resolved at 3.5 (7) Hypomagnesemia: Start date: 01/21/22 Start time: :18 Status: Acute Assessment and plan: resolved. 2.[address] Motley Subjective Subjective Patient reports: no new complaints and feels better Interval history since last seen: Tolerating a diet. Able to be discharged tomorrow if handling eggs tomorrow. Will trial ibuprofen at home when flare up starts then if that doesn't work will call surgery for toradol. Patient states pain improving. Exam Const General: cooperative, comfortable and no acute distress Nutritional Appearance: obese Orientation: alert, awake and oriented x3 HENMT Head: normal to inspection, no palpable skull fracture, normocephalic and atraumatic Eyes General: appearance normal, both eyes and all related structures Eyelids: eyelids normal Pupils: PERRL EOM: EOM intact bilaterally Neck Neck: normal visual inspection, full ROM, no lymphadenopathy and no JVD Lymphatic: no lymphadenopathy noted Resp Effort & Inspection: normal respiratory effort Auscultation: clear to auscultation bilaterally Cardio Jugular venous pressure: no JVD Rate: regular rate Rhythm: regular rhythm Heart Sounds: S1 normal GI Inspection: normal to inspection and large pannus Palpation: soft and no hepatosplenomegaly Percussion: normal to percussion Auscultation: normal bowel sounds Skin General skin exam: no rashes or lesions noted Neuro General: patient alert, patient awake and patient oriented x3 Cognition: normal cognition Speech: speech normal Gait: normal gait Extrem General: normal to inspection, full ROM and no clubbing, cyanosis or edema Objective Last Vital Signs Temp 35.7 C L 01/21/22 17:33 Pulse 63 01/21/22 17:33 Resp 16 01/21/22 17:33 BP 156/97 H 01/21/22 17:33 Pulse Ox 100 01/21/22 17:33 Laboratory Results - last 24 hr 01/21/22 01/21/22 06:41 06:41 Sodium 139 Potassium 3.5 Chloride 107 Carbon Dioxide 25.8 Anion Gap 6.2 BUN 5 L Creatinine 0.7 Estimated GFR/1.73 m2 >= 60.00 Glucose 100 Calcium 7.9 L Magnesium 2.1 25-OH Vitamin D Total 13.2 L PAWSS Have you Been Recently Intoxicated or Drunk Within the Last 30 days?: No Have you Ever Experienced Previous Episodes of Alcohol Withdrawal?: No Have you ever Experienced Withdrawal Seizures?: No Have you ever Experienced Delirium Tremens(DT)s?: No Have you ever undergone Alcohol Rehabilitation Treatment (i.e, inpt ot outpatient treatment programs)?: No Have you ever Experienced Blackouts?: No Have you ever Combined Alcohol with other Downers within the last 90 days?: No Have you ever Combined Alcohol with any other Substance of Abuse during the last 90 days?: No Positive Blood Alcohol level on Presentation? [PCS.BAL]: No Evidence of Increased Autonomic Activity (i.e. HR>120, tremor, sweating, agitation, nausea)?: No Result: 0
[2022-01-22 00:57] VITALS: BP 125/80; PULSE 64; RESP 16; TEMP 36.9; O2SAT 99
[2022-01-22 06:58] LABS: Anion Gap 8.1 mmol/L (3-11); BUN 5 mg/dL (7-18); CO2 26.9 mmol/L (21.0-32.0); CREATININE 0.7 mg/dL (0.55-1.02); Calcium 8.6 mg/dL (8.5-10.1); Chloride 108 mmol/L (98-107); Glucose 90 mg/dL (74-106); Magnesium 2.1 mg/dL (1.8-2.4); Potassium 4.1 mmol/L (3.5-5.1); Sodium 143 mmol/L (136-145)
[2022-01-22 07:48] VITALS: BP 129/76; PULSE 64; RESP 18; TEMP 36.3; O2SAT 98
[2022-01-22] MEDS: Dicyclomine 10 MG CAP PO (08:42)
[2022-01-22] MEDS: Lisinopril 5 MG TAB 15 MG PO (08:42)
[2022-01-22] MEDS: Fluticasone NASAL SPRAY 16 GM BTL NS (08:42)
[2022-01-22] MEDS: Calcium 600mg/Vit D 200U TAB 1 TAB PO (08:43)
[2022-01-22] MEDS: Normal Saline Flush 10 ML SYR IVP (08:44)
--- NOTE | 2022-01-22 11:47 | W.PM.PROGNOT ---
Date of Service Date of service: 01/22/22 Time of Service: 11:47 Subjective Subjective Interval history since last seen: Patient tolerated breakfast this morning. She has had no nausea vomiting today. She has very minimal cramping that requires no medication. She has not had a bowel movement in the past 24 hours. She was passing gas. She is up walking around. I did discuss with her that she may not have a bowel movement for the next 24 to 48 hours because she was completely emptied out. She does have some issues with constipation at baseline. This was either likely a viral gastroenteritis or a combination of that combined with her history of intra-abdominal. She has a history of intra-abdominal adhesions and dealing with these problems at home. Most of the time she can get through of the adhesion issues with just ibuprofen. She would like to know that she could get call the office and get a prescription for outpatient Toradol if she needs this. This is acceptable course of action for her. Heart: Regular rate and rhythm Lungs: Clear to auscultation abdomen: Soft and good bowel sounds And she can follow-up with our office as needed. Discharge per hospitalist service Objective Last Vital Signs Temp 36.3 C L 01/22/22 07:48 Pulse 64 01/22/22 07:48 Resp 18 01/22/22 07:48 BP 129/76 01/22/22 07:48 Pulse Ox 98 01/22/22 07:48 Laboratory Results - last 24 hr 01/22/22 06:18 Sodium 143 Potassium 4.1 Chloride 108 H Carbon Dioxide 26.9 Anion Gap 8.1 BUN 5 L Creatinine 0.7 Estimated GFR/1.73 m2 >= 60.00 Glucose 90 Calcium 8.6 Magnesium 2.1 PAWSS Have you Been Recently Intoxicated or Drunk Within the Last 30 days?: No Have you Ever Experienced Previous Episodes of Alcohol Withdrawal?: No Have you ever Experienced Withdrawal Seizures?: No Have you ever Experienced Delirium Tremens(DT)s?: No Have you ever undergone Alcohol Rehabilitation Treatment (i.e, inpt ot outpatient treatment programs)?: No Have you ever Experienced Blackouts?: No Have you ever Combined Alcohol with other Downers within the last 90 days?: No Have you ever Combined Alcohol with any other Substance of Abuse during the last 90 days?: No Positive Blood Alcohol level on Presentation? [PCS.BAL]: No Evidence of Increased Autonomic Activity (i.e. HR>120, tremor, sweating, agitation, nausea)?: No Result: 0
--- NOTE | 2022-01-22 14:48 | W.PM.DS.N ---
Date of service: 01/22/22 Time of Service: 14:48 DS: Diagnosis Discharge Diagnosis (1) Acute dehydration: Start date: 01/22/22 Start time: 14:50 Status: Resolved Asessment and Plan: Patient admitted after not being able to eat or drink for a couple of days, dehydrated from n/v prior to admission. Resolved with IV hydration and antiemetics. Then able to tolerate orals. Diet advanced to liquids then regular. Surgery consulted as they know her well. She was given toradol and dicyclomine. She is now able to tolerate soft foods without pain, n/v, therefore she is being discharged home with plan to f/u with PCP in 2 weeks. (2) Low vitamin D level: Start date: 01/22/22 Start time: 14:55 Status: Acute Asessment and Plan: Vitamin D level was 13 will continue 50,000 mcg weekly defer to PCP for further management, recommend after take 2,000 mcg daily (3) Vomiting: Start date: 01/22/22 Start time: 14:59 Status: Resolved Asessment and Plan: resolved as above (4) Enteritis: Start date: 01/22/22 Start time: 14:49 Status: Resolved Asessment and Plan: as above (5) Hypocalcemia: Start date: 01/22/22 Start time: 14:49 Status: Resolved Asessment and Plan: resolved. (6) Hypokalemia: Start date: 01/22/22 Start time: 14:49 Status: Resolved Asessment and Plan: resolved. (7) Hypomagnesemia: Start date: 01/22/22 Start time: 14:49 Status: Resolved Asessment and Plan: resolved. discussed with Dr. Motley Discharge Plan Disposition Patient Disposition: HOME Condition: Good Discharge Details Reason For Visit: Vomiting Admit Date/Time: 01/21/22 11:00 Admit Provider: Pasquale Granger Attending Provider: Pasquale Granger Primary Care Provider: Willian Petersen Hospital Course Hospital Course: 56 y.o f admitted to [facility] for n/v and dehydration. She has hx of colorectal cancer, ileus, adhesions. She started with loss of appetite, started to take her home regimen that usually works. It was not helpful became sicker and started vomiting bringing her to the ED. She was found to be dehydrated, with diarrhea. Labs in ED remarkable only for wbc [address] showed Possible enteritis.? No other significant findings. At the time no antibiotics felt warranted. She was admitted for further management, zofran, ketorlac, dicyclomine. Surgery was consulted as they are familiar with her. Vitamin D level was checked she was 13, requiring 50,000 per week. She was started on once week daily will right for a couple of weeks and defer to PCP for further management. Recommend taking 2000 mcg Vitamin D once level is in normal range She did require potassium and magnesium while she was here. She was able to tolerate regular diet today, therefore she is being discharged home with a f/u for PCP in 2 weeks. Home Meds and New Rx's Prescriptions: New ergocalciferol (vitamin D2) [Vitamin D2] 1,250 mcg (50,000 unit) Capsule 50,000 units PO Q7D Qty: 2 0RF Continued lisinopril 5 mg tablet 15 mg PO DAILY 0RF cetirizine 10 mg tablet 10 mg PO DAILY 0RF estradiol 1 mg tablet 1 mg PO DAILY 0RF Rx Instructions: off 1 week; repeat cycle dicyclomine 10 mg capsule 10 mg PO BID 0RF budesonide [Pulmicort] 0.25 mg/2 mL suspension for nebulization 0.25 mg inhalation BID 0RF fluticasone propionate [Flonase Allergy Relief] 50 mcg/actuation spray,suspension 1 spray intranasal DAILY 0RF Rx Instructions: administer into each nostril ondansetron 4 mg tablet,disintegrating 4 mg PO Q6H PRN (Reason: nausea and vomiting) Qty: 10 0RF acetaminophen 325 MG tablet 2 tab PO Q4H PRN PRN0RF No Action ketorolac 10 mg tablet 10 mg PO QID PRN (Reason: pain) 5 Days Qty: 10 0RF Rx Instructions: do not use for more than 5 days in a row Discharge Instructions Instructions: Acute Nausea and Vomiting (GEN), Abdominal Pain (ED), Ileus (GEN) Additional Instructions: On the onset of a flare up take ibuprofen 600 three times a day. If that does not work call Dr. Taylor for toradol Your Vitamin D level was very low at 13, you need to take 50,000 mcg weekly. You had a pill yesterday take one next week on Friday and the following week. Your provider will continue to prescribe the rest Stand Alone Forms: Nursing Discharge Form Referrals: Willian Petersen PA [Primary Care Provider] - 02/05/22 10:00 am Activity:: Activity as Tolerated Equipment/Supplies:: No Equipment Needed Diet:: soft Discharge Orders Discharge Orders: Discharge Order (Routine); Ordered 01/22/22 Ordered By: Xochilt Guzman DS: Summary Time Spent with Patient providing and/or coordinating discharge services: Greater than 30 minutes Status at Discharge Functional status at discharge: independent ambulation Overall status at discharge: patient is progressing back to baseline Mental Status: mental status grossly normal Speech and Movement: speech and movement normal Mood: congruent mood Affect: normal affect Exam Const General: cooperative, comfortable and no acute distress Nutritional Appearance: obese Orientation: alert, awake and oriented x3 HENMT Head: normal to inspection, no palpable skull fracture, normocephalic and atraumatic Eyes General: appearance normal, both eyes and all related structures Eyelids: eyelids normal Pupils: PERRL EOM: EOM intact bilaterally Neck Neck: normal visual inspection, full ROM, no lymphadenopathy and no JVD Lymphatic: no lymphadenopathy noted Resp Effort & Inspection: normal respiratory effort Auscultation: clear to auscultation bilaterally Cardio Jugular venous pressure: no JVD Rate: regular rate Rhythm: regular rhythm Heart Sounds: S1 normal GI Inspection: normal to inspection and large pannus Palpation: soft and no hepatosplenomegaly Percussion: normal to percussion Auscultation: normal bowel sounds Skin General skin exam: no rashes or lesions noted Neuro General: patient alert, patient awake and patient oriented x3 Cognition: normal cognition Speech: speech normal Gait: normal gait Extrem General: normal to inspection, full ROM and no clubbing, cyanosis or edema Psych Mental Status: mental status grossly normal Speech and Movement: speech and movement normal Mood: congruent mood Affect: normal affect DS: Data Vitals/I&O Vitals and I&O: Vital Signs Temperature 36.3 C L 01/22/22 07:48 Temperature Source Tympanic 01/22/22 07:48 Pulse 64 01/22/22 07:48 Pulse Rhythm Regular 01/22/22 08:15 Respiratory Rate 18 01/22/22 07:48 Respiratory Effort 01/22/22 08:15 Respiratory Depth Normal 01/22/22 08:15 Respiratory Pattern Normal 01/22/22 08:15 Blood Pressure 129/76 01/22/22 07:48 Blood Pressure Position Supine 01/19/22 01:37 Pulse Oximetry 98 01/22/22 07:48 Oxygen Delivery Method Room Air 01/22/22 07:48 Oxygen Flow Rate 0 01/22/22 07:48 Pain Level 0 01/22/22 07:48 Comment 01/19/22 01:37 Intake & Output 01/21/22 01/22/22 01/22/22 23:59 11:59 23:59 Intake Total 1080 / 3347.5 Output Total 6250 / 8150 900 / 900 Balance -5170 / -4802.5 -890 / -890 Intake: IV 600 / 1857.5 Oral 480 / 1490 Output: Urine 6250 / 8150 900 / 900 Other: Urine Color Yellow Yellow Urine Appearance Clear Clear Urine Odor None None Comment per patient. per patient Voiding Methods Toilet Data Completed and Pending Completed studies during hospitalization [Text1]: Possible enteritis.? No other significant findings. Labs on day of discharge: Labs from last 24 hours 01/22/22 06:18 Sodium 143 Potassium 4.1 Chloride 108 H Carbon Dioxide 26.9 Anion Gap 8.1 BUN 5 L Creatinine 0.7 Estimated GFR/1.73 m2 >= 60.00 Glucose 90 Calcium 8.6 Magnesium 2.1 PFSH All Active Problems Low vitamin D level (Acute) Intra-abdominal adhesions (Acute) GI bleed (Acute) Rectal cancer (Acute) Nausea and vomiting (Acute) Ileus (Acute) Acute abdominal pain (Acute) Internal derangement of right knee (Acute) Tendinitis of left quadriceps tendon (Acute) Small bowel obstruction due to adhesions (Acute) Acute abdominal pain (Acute) Leukocytosis (Acute) Small bowel obstruction (Acute) Medical History Anxiety Hx of small bowel obstruction Hypertension Migraine Rectal cancer treated with partial colectomy (oct 2017) and radiation Rectal prolapse Tubular adenoma of colon (09/30/16) invasive adenocarcinoma arising in a tubular adenoma. Surgical History Biopsy of breast Cholecystectomy Colonoscopy - MAC (09/30/16) Colonoscopy - MAC (01/01/17) Colonoscopy - MAC (06/01/18) colostomy takedown (10/15/17) History of colonoscopy (~03/16/21) left subclavian vein port removal (05/07/18) Partial resection of colon (11/27/16) with colostomy, reversal 10/15/17 Vaginal hysterectomy Family History Mother Dementia Social History Smoking/Tobacco Use Status: Never Smoking risk assessment performed?: Yes Alcohol Intake: current Alcohol Intake frequency: a few times a month Drug use: Never Substance use type: does not use Household members: spouse Housing: house Do you feel safe at home: Yes Do you feel safe in your relationship?: Yes
== END 2022-01-22 15:28 | disposition home or self-care (01) | DRG 392 ==
LOC: ER 04:03 → MS 04:25
PROVIDERS: Nurse Practitioner Family; Admitting Provider Family Medicine; Emergency Provider Student in an Organized Health Care Education/Training Program; PCP Physician Assistant Medical; Visit Provider Family Medicine
DX: A08.4 Viral intestinal infection, unspecified (principal); K56.7 Ileus, unspecified; K56.51 Intestinal adhesions [bands], with partial obstruction; R11.2 Nausea with vomiting, unspecified; E86.0 Dehydration; Z85.048 Personal history of other malignant neoplasm of rectum, rectosigmoid junction, and anus; Z90.49 Acquired absence of other specified parts of digestive tract; E83.42 Hypomagnesemia; I10 Essential (primary) hypertension; G43.909 Migraine, unspecified, not intractable, without status migrainosus; E83.51 Hypocalcemia; E87.6 Hypokalemia; E55.9 Vitamin D deficiency, unspecified
CPT/HCPCS: 36415; 80048; 80053; 82306; 83690; 87329; 87635; 96361; 96365; 96366; 96374; 96375; 96376; 99222; 99231; 99232; 99285; 74019; 83735; 85025; 94640; 99219; 99225; 99239; G0378; J1200; J1885; J2405; J3475; J3490; J7633

== ENCOUNTER 2022-01-29 13:12 | Outpatient (CLI) | payer BC, SELFPAY ==
--- NOTE | 2022-01-29 13:36 | DI.RAD_ITS ---
Exam(s) XR ABDOMEN FLAT UPRIGHT EXAM: XR ABDOMEN FLAT UPRIGHT CLINICAL HISTORY: ABDOMINAL PAIN - R10.84. TECHNIQUE: 2D digital imaging was performed. COMPARISON: CR XR ABDOMEN FLAT UPRIGHT from 01/21/2022 FINDINGS: Two views-supine and upright Again noted are surgical clips in the right upper quadrant from prior cholecystectomy. There is abundant fecal material noted in the colon. Also anastomotic sutures noted in the central p michael, possibly related to partial sigmoid resection. There is, however, mild prominence of diameter of the colon above this level when compared to below this level but not gross distention. There is, however, abundant fecal material above this level throughout the colon. There is a paucity of fecal material in the rectum. There is no free intraperitoneal air. Stomach is not distended IMPRESSION: Previous cholecystectomy and evidence of previous surgery in the pelvis, possibly partial sigmoid res ection. There is abundant fecal material noted throughout the colon above the level of this suture material i n the pelvis and extending all the way to the cecum. There is no evidence of small-bowel obstruction . However, I suspect that there may be developing obstruction distally in the sigmoid at what may be an anastomosis level. DATA REPOSITORY: RADIATION DOSE DELIVERED:
== END 2022-01-29 13:32 ==
PROVIDERS: PCP Physician Assistant Medical; Visit Provider Nurse Practitioner Family
DX: R10.84 Generalized abdominal pain (principal); Z90.49 Acquired absence of other specified parts of digestive tract; K59.00 Constipation, unspecified; Z85.048 Personal history of other malignant neoplasm of rectum, rectosigmoid junction, and anus
CPT/HCPCS: 74019

== ENCOUNTER 2022-01-29 16:56 | Outpatient (REF) | payer BC, SELFPAY ==
[2022-01-29 17:33] LABS: Abs Immature Grans 0.05 10^3/uL (0.0-0.06); Absolute Basophil Count 0.03 10^3/uL (0.0-0.2); Absolute Eosinophil Count 0.24 10^3/uL (0.0-0.7); Absolute Lymphocyte Count 2.19 10^3/uL (1.2-3.4); Absolute Monocyte Count 0.55 10^3/uL (0.1-0.8); Absolute Neutrophil Count 5.55 10^3/uL (1.2-6.7); Basophils % 0.3; Eosinophils % 2.8; HCT 45.1 % (36.0-46.0); Immature Grans % 0.6; Lymphocytes % 25.4; MCH 29.9 pg (27.0-33.0); MCHC 33.3 % (32.0-36.0); MPV 10.1 fL (8.0-11.0); Monocytes % 6.4; Neutrophils % 64.5; RBC 5.01 10^6/uL (3.93-5.22); RDW 12.5 % (11.7-14.6); RDW-SD 41.3 fL; WBC 8.61 10^3/uL (4.4-10.8)
[2022-01-29 17:34] LABS: Platelet Count 352 10^3/uL (130-400)
[2022-01-29 18:19] LABS: ALT 32 U/L (14-59); AST 18 U/L (15-37); Albumin 3.4 g/dL (3.4-5.0); Alkaline Phosphatase 63 U/L (46-116); Anion Gap 8.3 mmol/L (3-11); BUN 5 mg/dL (7-18); Bilirubin, Total 0.5 mg/dL (0.2-1.0); CO2 26.7 mmol/L (21.0-32.0); CREATININE 0.8 mg/dL (0.55-1.02); Chloride 106 mmol/L (98-107); Glucose 89 mg/dL (74-106); Potassium 3.8 mmol/L (3.5-5.1); Sodium 141 mmol/L (136-145)
== END 2022-01-29 16:57 | disposition home or self-care (01) ==
LOC: LBN 16:56
PROVIDERS: PCP Physician Assistant Medical; Visit Provider Nurse Practitioner Family
DX: R10.84 Generalized abdominal pain (principal)
CPT/HCPCS: 80053; 85025

== ENCOUNTER 2022-01-29 18:17 | Emergency (ER) | payer BC, SELFPAY ==
[2022-01-29] VITALS (15 sets, daily range): BP systolic 156–189; BP diastolic 85–107; PULSE 59–82; RESP 20; TEMP 36.7; O2SAT 98–100
--- NOTE | 2022-01-29 18:18 | ED.GENADUL_ITS ---
Discharge Plan Disposition Patient Disposition: HOME Condition: Stable Discharge Details Clinical Impression: Abdominal pain, Nausea, Constipation Primary Care Provider: Willian Petersen ED Provider: Corey Shaffer Home Meds and New Rx's Prescriptions: Continued lisinopril 5 mg tablet 15 mg PO DAILY 0RF cetirizine 10 mg tablet 10 mg PO DAILY 0RF estradiol 1 mg tablet 1 mg PO DAILY 0RF Rx Instructions: off 1 week; repeat cycle dicyclomine 10 mg capsule 10 mg PO BID 0RF budesonide [Pulmicort] 0.25 mg/2 mL suspension for nebulization 0.25 mg inhalation BID 0RF fluticasone propionate [Flonase Allergy Relief] 50 mcg/actuation spray,suspension 1 spray intranasal DAILY 0RF Rx Instructions: administer into each nostril ondansetron 4 mg tablet,disintegrating 4 mg PO Q6H PRN (Reason: nausea and vomiting) Qty: 10 0RF ergocalciferol (vitamin D2) [Vitamin D2] 1,250 mcg (50,000 unit) Capsule 50,000 units PO Q7D Qty: 2 0RF acetaminophen 325 MG tablet 2 tab PO Q4H PRN PRN0RF Discharge Instructions Instructions: Constipation (ED) Additional Instructions: At this time your laboratory work-up is stable. Your CT scan shows evidence of notable constipation. There is some mild irritation of your colon. While this does not look like evidence of infection by the surgeon, or myself on exam, we are getting an additional test. If this turns out positive we will contact you and discuss further options with you. Please continue to drink plenty of fluids and stay well-hydrated. If you notice any worsening of your symptoms, or any new symptoms such as vomiting, diarrhea, fever, chills, shortness of breath, chest pain, numbness, weakness, or fainting , please return immediately to the emergency department for reevaluation. Please follow up with your primary care provider as soon as possible for reassessment and reevaluation. As always, it was a pleasure participating in your medical care today. Referrals: Willian Petersen PA [Primary Care Provider] - Discharge Data Discharge Date/Time-TO BE ENTERED AT DEPARTURE: 01/29/22 21:29 Medical Decision Making 1829 -- 56-year-old female with a history of anxiety, hypertension, migraines, cholecystectomy, colon cancer w/ partial colectomy, hysterectomy presents with nausea and abdominal pain. She was admitted here 1 week ago for dehydration in the setting of possible viral gastroenteritis. She had an abdominal x-ray outpatient today which noted: IMPRESSION: Previous cholecystectomy and evidence of previous surgery in the pelvis, possibly partial sigmoid resection. There is abundant fecal material noted throughout the colon above the level of this suture material in the pelvis and extending all the way to the cecum.? There is no evidence of small-bowel obstruction.? However, I suspect that there may be developing obstruction distally in the sigmoid at what may be an anastomosis level. Case discussed with Dr. Perez who is well familiar with patient and is requesting a CT abdomen and pelvis with p.o. and IV contrast. The patient appears comfortable and nontoxic. Her blood pressure is significantly hypertensive 180/100. She states she took her lisinopril this morning. She is declining any medication for nausea or pain. Will obtain screening labs and give IV fluids. 1999 -- Patient reassessed and she states she had a good bowel movement and does feel better. She is continuing to drink contrast. Case endorsed to Dr. Shaffer to follow-up on imaging and with Dr. Perez for final disposition. Dr Shaffer's Documentation Patient was signed out to me by Dr. Mikayla Tillman. Please refer to her HPI, physical exam and assessment and plan. At time of signout the patient just had a large bowel movement and was actually feeling much much better. She states that the pain notably improved, and she has significant improvement of her clinical disposition. CT scan was reviewed by Dr. Perez, and with the notable amount of stool burden, it was felt that constipation was certainly the biggest etiology especially in conjunction with her symptoms. Surgery feels that discharge and close follow-up on an outpatient basis. Very reasonable at this stage. evidence of obstruction or ileus otherwise. Radiology/be read did note what was suspected to be acute focal proctocolitis, however the patient has no white count, bandemia, left shift, or fever. In addition to this CRP was normal and not indicative of an acute inflammatory or infectious process. On reassessment the patient continues to demonstrate a nonsurgical abdomen. Patient feels comfortable and feels comfortable going home. Recommend close follow-up on an outpatient basis with surgical services. Discussed red flags for which to return. With the patient's notable improvement in her symptomatology, no evidence of significant abnormality on CT scan of obstruction, patient is appropriate for discharge. Discussed red flags for which to return. I have extensively reviewed the treatment plan and discharge instructions with the patient and their family. I have addressed all patient concerns at this time. The patient and family was made aware of what symptoms to monitor for that would warrant a return to the emergency department. Discussed the plan with the patient and family, they demonstrate verbal understanding and agreement with our assessment and plan at this time. The documentation in this chart was dictated using [employer] dictation software. Please excuse any dictation errors. FINDINGS: Liver: Normal. No mass. Gallbladder and bile ducts: Prior cholecystectomy. Pancreas: Normal. No ductal dilation. Spleen: Normal. No splenomegaly. Adrenal glands: Normal. No mass. Kidneys and ureters: Normal. No hydronephrosis. Stomach and bowel: There is colonic wall thickening present at the rectum, along both sides of the previous anastomosis related to colonic resection. There is also surrounding mesenteric fat stranding and trace pelvic free fluid. Moderate stool is present throughout the colon. There are no dilated loops of bowel. Appendix: The appendix is not discretely visualized. Intraperitoneal space: See Stomach and bowel finding. Arteries: Unremarkable. No abdominal aortic aneurysm. Lymph nodes: There is an enlarged lymph node in the perirectal fat measuring 1.8 x 1.1 cm, which is likely reactive. Urinary bladder: Unremarkable as visualized. Reproductive: Prior hysterectomy. Bones/joints: [id number] multilevel degenerative changes are present spine. Soft tissues: Unremarkable. IMPRESSION: 1. Acute focal proctocolitis, on either side of the previous surgical anastomosis related to prior colonic resection. There is acute perirectal fat stranding and a small amount of fluid in the pelvis. Infectious or inflammatory etiology should be considered. 2. Enlarged lymph node in the perirectal fat, which is likely reactive. 3. Prior cholecystectomy hysterectomy and possibly appendectomy. Thank you for allowing us to participate in the care of your patient. Dictated and Authenticated by: Antoinette Buckley MD 01/29/2022 9:17 PM Eastern Time ([place] & [place]) Medical Records Medical records reviewed: Yes I reviewed the patient's medical records. Imaging Data Radiologic Study: Radiologist's impression: 01/29/22 Abdomen X-ray: CLINICAL HISTORY: ? ABDOMINAL PAIN - R10.84. ? TECHNIQUE:? 2D digital imaging was performed. COMPARISON:? CR XR ABDOMEN FLAT ? UPRIGHT from 01/21/2022 FINDINGS: Two views-supine and upright Again noted are surgical clips in the right upper quadrant from prior cholecystectomy. There is abundant fecal material noted in the colon.? Also anastomotic sutures noted in the central pelvis, possibly related to partial sigmoid resection.? There is, however, mild prominence of diameter of the colon above this level when compared to below this level but not gross distention.? There is, however, abundant fecal material above this level throughout the colon.? There is a paucity of fecal material in the rectum. There is no free intraperitoneal air.? Stomach is not distended IMPRESSION: Previous cholecystectomy and evidence of previous surgery in the pelvis, possibly partial sigmoid resection. There is abundant fecal material noted throughout the colon above the level of this suture material in the pelvis and extending all the way to the cecum.? There is no evidence of small-bowel obstruction.? However, I suspect that there may be developing obstruction distally in the sigmoid at what may be an anastomosis level. HPI General Date/Time Provider Initiated Documentation: 01/29/22 18:18 . HPI Narrative: Patient is a 56-year-old female with a history of colon cancer with partial colectomy and previous ileostomy with reversal, hysterectomy, cholecystectomy, anxiety, hypertension, migraines presents with nausea and abdominal pain for the past week since discharge from here for dehydration and what was thought to be possibly viral gastroenteritis. Patient states he has had multiple possible small bowel obstruction over the last several years but states she has never required surgery secondary to a possible small bowel obstruction. She states she was only passing gas prior to discharge from here 1 week ago and did not feel ready for discharge. She states for the past week she has been alternating liquids and solid food which is then causing nausea and return of her abdominal pain. She admits to some mild abdominal discomfort at this time. She denies any vomiting or fever. She states she normally has multiple bowel movements daily but states her last bowel movement was 2 days ago, small and hard which is unusual for her. Related Data Home Medications Medication Instructions Recorded Confirmed acetaminophen 325 mg tablet 2 tab PO Q4H PRN PRN 12/31/16 01/19/22 cetirizine 10 mg tablet 10 mg PO DAILY 07/03/20 01/19/22 estradiol 1 mg tablet 1 mg PO DAILY 07/03/20 01/29/22 lisinopril 5 mg tablet 15 mg PO DAILY 07/03/20 01/29/22 budesonide 0.25 mg/2 mL suspension 0.25 mg INHALATION BID 02/02/21 01/29/22 for nebulization (Pulmicort) dicyclomine 10 mg capsule 10 mg PO BID 02/02/21 01/19/22 fluticasone propionate 50 1 spray INTRANASAL DAILY 02/02/21 01/29/22 mcg/actuation nasal spray,suspension (Flonase Allergy Relief) ondansetron 4 mg disintegrating 4 mg PO Q6H PRN #10 tab 01/18/22 01/19/22 tablet ergocalciferol (vitamin D2) 1,250 50,000 units PO Q7D #2 cap 01/22/22 mcg (50,000 unit) capsule (Vitamin D2) Previous Rx's Medication Instructions Recorded ondansetron 4 mg disintegrating 4 mg PO Q6H PRN #10 tab 01/18/22 tablet ergocalciferol (vitamin D2) 1,250 50,000 units PO Q7D #2 cap 01/22/22 mcg (50,000 unit) capsule (Vitamin D2) Allergies Allergy/AdvReac Type Severity Reaction Status Date / Time latex Allergy Mild Skin Rash Unverified 01/29/22 18:53 Opioids - Morphine Analogues AdvReac Severe N/V/Dizzine Unverified 01/29/22 18 :53 ss General DOUG: 3 Review of Systems All systems reviewed & are unremarkable except as noted in HPI and below Constitutional Constitutional: Denies chills, Denies excessive sweating, Denies fatigue, Denies fever(s), Denies weakness and Denies weight loss Eyes Eyes: Reports system reviewed and no additional complaints, except as documented and Denies blurry vision ENT Ears, Nose, Mouth, and Throat: Denies vertigo, Denies dizziness, Denies otalgia, Denies nasal congestion, Denies sore throat and Denies throat swelling Cardiovascular Cardiovascular: Denies chest pain, Denies syncope, Denies rapid heart rate and Denies dyspnea Respiratory Respiratory: Denies chest congestion, Denies cough, Denies pain on inspiration and Denies dyspnea Gastrointestinal Gastrointestinal: Reports abdominal pain, Reports constipation, Denies diarrhea, Reports nausea and Denies vomiting Genitourinary Genitourinary: Denies hematuria, Denies dysuria and Denies flank pain Musculoskeletal Musculoskeletal: Denies back pain and Denies joint swelling Integumentary/Breasts Skin/Breast: Denies lesions and Denies rash Neurologic Neurologic: Denies behavioral changes, Denies confusion, Denies vertigo, Denies dizziness, Denies syncope, Denies localized weakness and Denies weakness Psychiatric Psychiatric: Denies behavioral changes, Denies confusion and Denies depression Endocrine Endocrine: Denies excessive sweating and Denies fatigue Hematologic/Lymphatic Hematologic/Lymphatic: Denies easy bruising and Denies lymphadenopathy Allergic/Immunologic Allergic/Immunologic: Denies throat swelling PFSH All Active Problems (Updated 01/29/22 @ 21:15 by Corey Shaffer DO) Nausea (Acute) Abdominal pain (Acute) Constipation (Acute) Low vitamin D level (Acute) GI bleed (Acute) Rectal cancer (Acute) Acute abdominal pain (Acute) Internal derangement of right knee (Acute) Tendinitis of left quadriceps tendon (Acute) Small bowel obstruction due to adhesions (Acute) Acute abdominal pain (Acute) Leukocytosis (Acute) Small bowel obstruction (Acute) Medical History Anxiety Hx of small bowel obstruction Hypertension Migraine Rectal cancer treated with partial colectomy (oct 2017) and radiation Rectal prolapse Tubular adenoma of colon (09/30/16) invasive adenocarcinoma arising in a tubular adenoma. Surgical History Biopsy of breast Cholecystectomy Colonoscopy - MAC (09/30/16) Colonoscopy - MAC (01/01/17) Colonoscopy - MAC (06/01/18) colostomy takedown (10/15/17) History of colonoscopy (~03/16/21) left subclavian vein port removal (05/07/18) Partial resection of colon (11/27/16) with colostomy, reversal 10/15/17 Vaginal hysterectomy Family History Mother Dementia Social History Smoking/Tobacco Use Status: Never Smoking risk assessment performed?: Yes Alcohol Intake: current Alcohol Intake frequency: a few times a month Drug use: Never Substance use type: does not use Household members: spouse Housing: house Do you feel safe at home: Yes Do you feel safe in your relationship?: Yes Exam Const General: cooperative Orientation: alert, awake and oriented x3 HENMT Head: normal to inspection Ears: hearing grossly normal bilaterally, external ears normal and TM's normal bilaterally General nose exam: external nose normal Face and sinus: normal facial exam Mouth: oral mucosae normal Teeth and gingiva: dentition normal Throat: posterior oropharynx normal Eyes General: appearance normal, both eyes and all related structures Eyelids: eyelids normal Pupils: PERRL EOM: EOM intact bilaterally Neck Neck: normal visual inspection Lymphatic: no lymphadenopathy noted Chest Chest: normal inspection of the chest Resp Effort & Inspection: normal respiratory effort and able to speak in complete sentences Auscultation: clear to auscultation bilaterally Cardio Rate: regular rate Rhythm: regular rhythm GI Inspection: normal to inspection Palpation: soft, not firm, no guarding, no hepatosplenomegaly, no masses and tender suprapubicly (mild) Auscultation: absent bowel sounds Back/Spine/Pelvis Back: no CVA tenderness Skin General skin exam: no rashes or lesions noted Neuro General: patient alert and patient awake Cognition: normal cognition Speech: speech normal Gait: normal gait Motor: muscle tone normal throughout Sensory Exam: no sensory deficits noted Extrem General: normal to inspection, full ROM and capillary refill normal Psych Appearance: grossly normal Mental Status: mental status grossly normal Speech and Movement: speech and movement normal Affect: normal affect Thought Process: normal Sign Out Sign Out Data: Sign Out Comment: Plan for CT after patient finishes PO contrast. Follow-up with Dr. Perez regarding CT results and for final disposition. Last updated by Mikayla Tillman DO at 01/29/22 20:15
--- NOTE | 2022-01-29 18:30 | DI.CT_ITS ---
Exam(s) CT ABDOMEN PELVIS W EXAM: CT ABDOMEN PELVIS W INDICATION: abdominal pain, nausea, r/o bowel obstruction. COMPARISON: CT CT ABDOMEN PELVIS W from 01/18/2022 TECHNIQUE: FINDINGS: CT examination of the abdomen and pelvis was performed with a bolus infusion of 100 cc of Omnipaque 3 50. Images obtained through the lung bases are unremarkable. The liver is unremarkable in appearance. Gallbladder has been surgically removed, bile ducts are CT normal. Pancreas is heterogeneous in appearance and of decreased attenuation, presumably representing fatty r eplacement. No gross mass identified.. Spleen is unremarkable in appearance. Adrenals appear normal. The kidneys are unremarkable with no evidence of hydronephrosis, nephrolithiasis, or renal mass.. Ur inary bladder unremarkable. Abdominal aorta is of normal diameter and no major vascular abnormality is seen. No abdominal wall hernia. No abdominal or pelvic adenopathy. Uterus is atrophic or absent. Appendix is normal. No evidence of diverticulitis or bowel obstruction. There is wall thickening of the rectum, there are anastomotic sutures present in the rectum and the p atient has a history of rectal carcinoma. There is an enlarged perirectal lymph node. Findings as d escribed are likely inflammatory in nature, however possibility of recurrent neoplastic disease is no t entirely excluded. Appropriate follow-up with colonoscopy and or CT recommended. IMPRESSION: The appearance is consistent with a proctocolitis at site of prior surgical anastomosis in patient wi th history of rectal carcinoma. Recurrence neoplastic disease not entirely excluded, appropriate follow-up recommended. RADIATION DOSE DELIVERED: 1,144.17mGy.cm Total DLP 1,144.17mGy.cm Total DLP !Error CTDIvol RADIATION OPTIMIZATION: All CT scans at this facility use at least one of these dose optimization te chniques: automated exposure control; mA and/or kV adjustment per patient size (includes targeted exa ms where dose is matched to clinical indication); or iterative reconstruction.
[2022-01-29] MEDS: Lidocaine 4% Cream 5 GM TUBE TP (18:45)
[2022-01-29 18:54] LABS: Abs Immature Grans 0.03 10^3/uL (0.0-0.06); Absolute Basophil Count 0.03 10^3/uL (0.0-0.2); Absolute Eosinophil Count 0.28 10^3/uL (0.0-0.7); Absolute Lymphocyte Count 3.43 10^3/uL (1.2-3.4); Absolute Neutrophil Count 5.73 10^3/uL (1.2-6.7); Basophils % 0.3; Eosinophils % 2.7; HCT 44.6 % (36.0-46.0); HGB 14.7 g/dL (11.2-15.7); Immature Grans % 0.3; Lymphocytes % 33.6; MCH 29.6 pg (27.0-33.0); MCV 89.9 fL (80-95); MPV 9.7 fL (8.0-11.0); Monocytes % 6.9; Neutrophils % 56.2; Platelet Count 336 10^3/uL (130-400); RBC 4.96 10^6/uL (3.93-5.22); RDW 12.3 % (11.7-14.6); RDW-SD 40.9 fL
[2022-01-29] MEDS: Omnipaque 350 MG/ML 50 ML BTL PO (19:20)
[2022-01-29 19:38] LABS: Lipase 27 U/L (73-393)
[2022-01-29 19:43] LABS: ALT 31 U/L (14-59); AST 19 U/L (15-37); Albumin 3.2 g/dL (3.4-5.0); Alkaline Phosphatase 59 U/L (46-116); Anion Gap 7.2 mmol/L (3-11); BUN 5 mg/dL (7-18); Bilirubin, Total 0.4 mg/dL (0.2-1.0); CO2 26.8 mmol/L (21.0-32.0); CREATININE 0.8 mg/dL (0.55-1.02); Calcium 8.7 mg/dL (8.5-10.1); Chloride 104 mmol/L (98-107); Glucose 100 mg/dL (74-106); Potassium 3.4 mmol/L (3.5-5.1); Sodium 138 mmol/L (136-145); Total Protein 7.1 g/dL (6.4-8.2)
[2022-01-29] MEDS: Normal Saline 1,000 ML 1000 ML IV (20:02)
--- NOTE | 2022-01-29 20:05 | NUR.NOTE ---
Nursing Note:Patient up to bathroom and reports she had a bowel movement, states she is having some relief in her abdomen.
[2022-01-29] MEDS: Omnipaque 350 MG/ML 100 ML BTL IJ (20:42)
--- NOTE | 2022-01-29 21:17 | DI.VRAD_ITS ---
PROCEDURE INFORMATION: Exam: CT Abdomen And Pelvis With Contrast Exam date and time: 01/29/2022 8:42 PM Age: 56 years old Clinical indication: Other: Abdominal pain, nausea, R/O bowel obstruction TECHNIQUE: Imaging protocol: Computed tomography of the abdomen and pelvis with contrast. Contrast material: OMNIPAQUE 350; Contrast volume: 100 ml; Contrast route: INTRAVENOUS (IV); COMPARISON: CT ABDOMEN PELVIS W 01/18/2022 7:41 PM FINDINGS: Liver: Normal. No mass. Gallbladder and bile ducts: Prior cholecystectomy. Pancreas: Normal. No ductal dilation. Spleen: Normal. No splenomegaly. Adrenal glands: Normal. No mass. Kidneys and ureters: Normal. No hydronephrosis. Stomach and bowel: There is colonic wall thickening present at the rectum, along both sides of the previous anastomosis related to colonic resection. There is also surrounding mesenteric fat stranding and trace pelvic free fluid. Moderate stool is present throughout the colon. There are no dilated loops of bowel. Appendix: The appendix is not discretely visualized. Intraperitoneal space: See Stomach and bowel finding. Arteries: Unremarkable. No abdominal aortic aneurysm. Lymph nodes: There is an enlarged lymph node in the perirectal fat measuring 1.8 x 1.1 cm, which is likely reactive. Urinary bladder: Unremarkable as visualized. Reproductive: Prior hysterectomy. Bones/joints: [id number] multilevel degenerative changes are present spine. Soft tissues: Unremarkable. IMPRESSION: 1. Acute focal proctocolitis, on either side of the previous surgical anastomosis related to prior colonic resection. There is acute perirectal fat stranding and a small amount of fluid in the pelvis. Infectious or inflammatory etiology should be considered. 2. Enlarged lymph node in the perirectal fat, which is likely reactive. 3. Prior cholecystectomy hysterectomy and possibly appendectomy. Dictated and Authenticated by: Antoinette Buckley MD. Ordering:ROBERTA Dgeroot MD
[2022-01-29 21:35] LABS: C-Reactive Protein 0.22 mg/dL (0.0-0.3)
== END 2022-01-29 21:29 | disposition home or self-care (01) ==
PROVIDERS: Physician Assistant; Emergency Provider Student in an Organized Health Care Education/Training Program; PCP Physician Assistant Medical
DX: R10.9 Unspecified abdominal pain (principal); R11.0 Nausea; K59.00 Constipation, unspecified
CPT/HCPCS: 80053; 83690; 96360; 99285; 74177; 85025; 86140; 99283; J3490; Q9967

== ENCOUNTER 2022-02-06 20:03 | Outpatient (REF) | payer BC, SELFPAY ==
[2022-02-06 13:47] LABS: Abs Immature Grans 0.01 10^3/uL (0.0-0.06); Absolute Basophil Count 0.04 10^3/uL (0.0-0.2); Absolute Eosinophil Count 0.22 10^3/uL (0.0-0.7); Absolute Lymphocyte Count 1.85 10^3/uL (1.2-3.4); Absolute Monocyte Count 0.44 10^3/uL (0.1-0.8); Absolute Neutrophil Count 3.54 10^3/uL (1.2-6.7); Basophils % 0.7; Eosinophils % 3.6; HCT 41.6 % (36.0-46.0); HGB 13.6 g/dL (11.2-15.7); Immature Grans % 0.2; Lymphocytes % 30.3; MCH 29.4 pg (27.0-33.0); MCHC 32.7 % (32.0-36.0); MCV 89.8 fL (80-95); MPV 9.9 fL (8.0-11.0); Monocytes % 7.2; Platelet Count 296 10^3/uL (130-400); RBC 4.63 10^6/uL (3.93-5.22); RDW 12.5 % (11.7-14.6); RDW-SD 41.5 fL
[2022-02-06 13:51] LABS: Anion Gap 4.9 mmol/L (3-11); BUN 7 mg/dL (7-18); CO2 30.1 mmol/L (21.0-32.0); CREATININE 0.8 mg/dL (0.55-1.02); Calcium 9.3 mg/dL (8.5-10.1); Chloride 103 mmol/L (98-107); Glucose 92 mg/dL (74-106); Magnesium 1.9 mg/dL (1.8-2.4); Potassium 4.7 mmol/L (3.5-5.1); Sodium 138 mmol/L (136-145)
[2022-02-07 05:57] LABS: Vitamin D 25 Total 18.5 ng/mL (30-100)
[2022-02-07 18:54] LABS: CEA 0.7 ng/mL (See Note)
== END 2022-02-06 20:04 | disposition home or self-care (01) ==
LOC: NCHCN 20:03
PROVIDERS: Internal Medicine Hematology & Oncology; PCP Physician Assistant Medical; Visit Provider Physician Assistant Medical
DX: Z85.048 Personal history of other malignant neoplasm of rectum, rectosigmoid junction, and anus (principal); R10.84 Generalized abdominal pain; E55.9 Vitamin D deficiency, unspecified
CPT/HCPCS: 80048; 82306; 82378; 83735; 85025

== ENCOUNTER → 2022-05-14 02:23 | Outpatient (CLI) | payer BC, SELFPAY ==
[2022-05-14 14:08] LABS: Abs Immature Grans 0.03 10^3/uL (0.0-0.06); Absolute Basophil Count 0.04 10^3/uL (0.0-0.2); Absolute Eosinophil Count 0.18 10^3/uL (0.0-0.7); Absolute Lymphocyte Count 2.43 10^3/uL (1.2-3.4); Absolute Monocyte Count 0.52 10^3/uL (0.1-0.8); Basophils % 0.5; Eosinophils % 2.3; HCT 39.6 % (36.0-46.0); HGB 13.4 g/dL (11.2-15.7); Immature Grans % 0.4; Lymphocytes % 31.6; MCH 29.6 pg (27.0-33.0); MCHC 33.8 % (32.0-36.0); MCV 87 fL (80-95); MPV 9.4 fL (8.0-11.0); Monocytes % 6.8; Neutrophils % 58.4; Platelet Count 280 10^3/uL (130-400); RBC 4.53 10^6/uL (3.93-5.22); RDW 12.7 % (11.7-14.6); RDW-SD 40.6 fL
[2022-05-14] MEDS: Barium Sulfate 2% W/V-Berry Smoothie 450 ML BTL PO ×2 (14:09→14:10)
[2022-05-14 14:26] LABS: ALT 31 U/L (14-59); AST 21 U/L (15-37); Albumin 3.2 g/dL (3.4-5.0); Alkaline Phosphatase 56 U/L (46-116); Anion Gap 2.5 mmol/L (3-11); BUN 11 mg/dL (7-18); Bilirubin, Total 0.3 mg/dL (0.2-1.0); CO2 29.5 mmol/L (21.0-32.0); CREATININE 0.8 mg/dL (0.55-1.02); Calcium 8.8 mg/dL (8.5-10.1); Chloride 102 mmol/L (98-107); Glucose 78 mg/dL (74-106); Potassium 3.6 mmol/L (3.5-5.1); Sodium 134 mmol/L (136-145); Total Protein 7.3 g/dL (6.4-8.2)
--- NOTE | 2022-05-14 15:00 | DI.CT_ITS ---
Exam(s) CT CHEST/ABD/PEL W EXAM: CT CHEST/ABD/PEL W CLINICAL HISTORY: RECTAL CA, C20, S/P CHEMO/RT AND RESECTION, RESTAGING TECHNIQUE: Imaging Protocol: Axial computed tomography images with coronal and sagittal reformatted images were created and reviewed CONTRAST MATERIAL: Intravenous: Omnipaque 350 contrast volume:100 mL Oral: Yes COMPARISON: CT CT ABDOMEN PELVIS W from 01/29/2022 FINDINGS: CHEST: Tracheobronchial tree: Patent where visualized. Pulmonary parenchyma: No consolidation or dominant measurable mass. No architectural distortion. Visualized thyroid gland: Unremarkable. Mediastinum and Gerda: No dominant adenopathy or fluid collection. The esophagus is unremarkable. Sma ll hiatal hernia. Pleura: No effusion or pneumothorax. Heart: The heart is not dilated. No coronary artery calcifications are seen. No pericardial effusion. Pulmonary arteries: No pulmonary emboli are identified. Aorta: Thoracic aorta non-dilated. Lymph nodes: Within normal limits. Soft tissues: Unremarkable. Bones:Within normal limits for the patient's age. No aggressive osseous changes. ABDOMEN: Liver: Normal density. No measurable mass. Portal, Superior Mesenteric, and Splenic Veins: Unremarkable. Gallbladder and Biliary Tract: Status post cholecystectomy. No biliary ductal dilatation. Pancreas: Normal density, no abnormal calcifications or inflammatory process. Spleen: Normal. Adrenals: No masses seen. Kidneys: Normal size, contour and axis. No radiodense stones or obstructive uropathy. No masses seen. Abdominal Aorta: Abdominal portion non-dilated. Bowel: No evidence of bowel obstruction. There has been an interval decrease since the degree of bow el wall thickening in the rectum just distal to the anastomotic clips. There is stable thickening of the presacral soft tissues. No evidence of appendicitis. There is a moderate amount of stool in th e colon. Peritoneal Cavity: No ascites, collection or mesenteric inflammatory response. No free air. Lymph Nodes: Within normal limits. Bones: Within normal limits for the patient's age. No aggressive osseous lesions are identified. Soft Tissues: Unremarkable. PELVIS: Bladder: Symmetric distention, no gross wall thickening. Reproductive Organs: Status post hysterectomy. Lymph Nodes: Within normal limits. Bones: Within normal limits. IMPRESSION: 1. Postsurgical changes in the rectum. Interval decrease in the bowel wall thickening near the anast omosis compared to 01/29/2022. 2. No other evidence in the abdomen and pelvis to suggest metastatic disease. 3. No evidence of thoracic metastatic disease. RADIATION DOSE DELIVERED: 2,209.24mGy.cm Total DLP DATA REPOSITORY: All CT scans at this facility are submitted to the National Radiology Data Registry (NRDR) Dose Index Registry (DIR) with the [employer] ([employer]). RADIATION OPTIMIZATION: All CT scans at this facility use at least one of these dose optimization te chniques: automated exposure control; mA and/or kV adjustment per patient size (includes targeted exa ms where dose is matched to clinical indication); or iterative reconstruction.
[2022-05-14] MEDS: Normal Saline Flush 10 ML SYR IVP (15:29)
[2022-05-14] MEDS: Omnipaque 350 MG/ML 100 ML BTL IJ (15:29)
[2022-05-14 23:13] LABS: CEA 0.7 ng/mL (See Note)
== END ==
PROVIDERS: PCP Physician Assistant Medical; Visit Provider Internal Medicine Hematology & Oncology
DX: C20 Malignant neoplasm of rectum (principal)
CPT/HCPCS: 74177; 80053; 71260; 82378; 85025; J3490

== ENCOUNTER 2022-10-31 03:29 | Outpatient (CLI) | payer BC, SELFPAY ==
--- NOTE | 2022-10-31 | DI.MAMMO_ITS ---
Exam(s) MAMMO SCREENING EXAM: MAMMO SCREENING CLINICAL HISTORY: SCREENING, Z12.31. TECHNIQUE: Bilateral full field digital CC and MLO mammographic images were obtained with 3D tomosyn thesis and utilizing computer aided detection (CAD). COMPARISON: Prior mammograms were reviewed. FINDINGS: There has been no significant change in the appearance and distribution of the fibroglandular tissue. There are no new findings in the immediate vicinity of the biopsy marker in the left breast. There are no new spiculated masses nor malignant appearing microcalcification groups. Asymmetric tissue bilaterally is unchanged from prior studies. There is no significant architectural distortion nor skin thickening-retraction. IMPRESSION: No radiographic evidence of malignancy. BI-RADS Category 1 - Negative Breast Density - Category B - Scattered areas of fibroglandular density Breast density Category C or D implies that the patient has dense breast tissue. Dense breast tissue can make it harder to find cancer on a mammogram. Dense breast tissue is also associated with an incr eased risk of breast cancer. This information about the result of the mammogram report was provided to the patient to raise their awareness. Use this report when you speak with the patient about their risks for breast cancer, which includes their family history. At that time, you may recommend additional screening tests (Ultrasoun d or MRI) as these tests may add significant information. A negative radiographic report should not delay biopsy if a dominant or clinically suspicious mass is present. Up to ten percent of cancers are not identified on mammography. A negative report may reinforce clinical impression. Adenosis and dense breasts may obscure an underlying neoplasm. False positive reports average 6 to 10%. Patient will receive a letter notifying them of these results.
== END 2022-10-31 03:49 ==
PROVIDERS: PCP Physician Assistant Medical; Visit Provider Physician Assistant Medical
DX: Z12.31 Encounter for screening mammogram for malignant neoplasm of breast (principal); N64.59 Other signs and symptoms in breast
CPT/HCPCS: 77063; 77067

== ENCOUNTER 2022-12-10 01:42 | Outpatient (CLI) | payer BC, SELFPAY ==
[2022-12-10] MEDS: Barium Sulfate 2% W/V-Berry Smoothie 450 ML BTL PO ×2 (08:07→08:08)
[2022-12-10 08:34] LABS: Abs Immature Grans 0.02 10^3/uL (0.0-0.06); Absolute Basophil Count 0.03 10^3/uL (0.0-0.2); Absolute Eosinophil Count 0.12 10^3/uL (0.0-0.7); Absolute Lymphocyte Count 1.53 10^3/uL (1.2-3.4); Absolute Monocyte Count 0.34 10^3/uL (0.1-0.8); Absolute Neutrophil Count 3.36 10^3/uL (1.2-6.7); Basophils % 0.6; Eosinophils % 2.2; HCT 37.9 % (36.0-46.0); HGB 12.9 g/dL (11.2-15.7); Immature Grans % 0.4; Lymphocytes % 28.3; MCH 29.9 pg (27.0-33.0); MCV 88 fL (80-95); MPV 9.2 fL (8.0-11.0); Monocytes % 6.3; Neutrophils % 62.2; Platelet Count 273 10^3/uL (130-400); RBC 4.31 10^6/uL (3.93-5.22); RDW 12.8 % (11.7-14.6); RDW-SD 41.6 fL
[2022-12-10 08:50] LABS: ALT 21 U/L (14-59); AST 15 U/L (15-37); Albumin 3.3 g/dL (3.4-5.0); Alkaline Phosphatase 50 U/L (46-116); Anion Gap 6.4 mmol/L (3-11); BUN 7 mg/dL (7-18); Bilirubin, Total 0.6 mg/dL (0.2-1.0); CO2 28.6 mmol/L (21.0-32.0); CREATININE 0.8 mg/dL (0.55-1.02); Calcium 9.1 mg/dL (8.5-10.1); Chloride 107 mmol/L (98-107); Estimated GFR 84.82 (mL/min/1.73m2); Glucose 95 mg/dL (74-106); Potassium 3.5 mmol/L (3.5-5.1); Sodium 142 mmol/L (136-145); Total Protein 6.9 g/dL (6.4-8.2)
[2022-12-10 09:25] LABS: Calculated LDL 130 mg/dL (<100); Cholesterol 216 mg/dL (<200); HDL Cholesterol 70 mg/dL (40-60); Triglyceride 83 mg/dL (<150)
[2022-12-10 09:47] LABS: Vitamin D 25 Total 49.7 ng/mL (30-100)
--- NOTE | 2022-12-10 10:00 | DI.CT_ITS ---
Exam(s) CT CHEST/ABD/PEL W EXAM: CT CHEST/ABD/PEL W CLINICAL HISTORY: RECTAL CA, C20, S/P CHEMO, RT AND LAR, RESTAGING. TECHNIQUE: Imaging Protocol: Axial computed tomography images with coronal and sagittal reformatted images were created and reviewed CONTRAST MATERIAL: Intravenous: Omnipaque 350 Contrast volume:100 ml Oral: None COMPARISON: CT CT CHEST/ABD/PEL W from 05/14/2022 FINDINGS: CHEST: LUNGS: There are no infiltrates nor pleural effusions. No concerning nodule seen in either lung fiel d. No significant focal findings in the trachea and mainstem bronchi.. MEDIASTINUM: There is no hilar nor mediastinal adenopathy. Visualized thyroid unremarkable.No axillar y adenopathy. CARDIAC: Heart size is normal. There is no pericardial effusion.Diameter of the ascending thoracic a wali is 3.8 cm. No dissection. Diameter of the descending thoracic aorta is upper normal. OSSEOUS: No significant osseous lesions.No fractures. ABDOMEN: There is no ascites. LIVER: There are no focal hepatic lesions nor dilatation of intrahepatic ducts. GALLBLADDER/BILIARY: Gallbladder is surgically absent. CBD is not dilated. PANCREAS: No evidence of pancreatic mass nor dilatation of the pancreatic duct. SPLEEN: Spleen is not enlarged. There are no intrasplenic lesions. Splenic and portal veins are connelly nt. ADRENALS: There are no significant adrenal masses. KIDNEYS: No calculi nor hydronephrosis. No solid renal masses. No cysts evident. ABDOMINAL AORTA: Abdominal aorta is not enlarged. LYMPH NODES: There is no retroperitoneal nor paraaortic adenopathy. ABDOMINAL WALL: No evidence of significant anterior abdominal wall nor inguinal hernia. GI: There is no evidence of bowel obstruction. PELVIS: LYMPH NODES: There is no intrapelvic nor inguinal adenopathy. GI: No evidence of appendicitis.The postsurgical appearance of the rectum is stable. Anastomosis sit e appears stable. There is stable thickening of the presacral soft tissues again noted. URINARY BLADDER: No calculi nor masses evident REPRODUCTIVE: Uterus is again noted be surgically absent. No abnormal adnexal masses. OSSEOUS: No new significant osseous lesions. No fractures evident. IMPRESSION: 1. Stable appearance of postsurgical changes in the region of the rectum when compared to the prior C T scan of May 2022. 2. No evidence of new metastatic disease in the abdomen and pelvis. 3. No evidence of intrathoracic metastatic disease. RADIATION DOSE DELIVERED: 1505.68 mGy.cm Total DLP DATA REPOSITORY: All CT scans at this facility are submitted to the National Radiology Data Registry (NRDR) Dose Index Registry (DIR) with the [employer] ([employer]). RADIATION OPTIMIZATION: All CT scans at this facility use at least one of these dose optimization te chniques: automated exposure control; mA and/or kV adjustment per patient size (includes targeted exa ms where dose is matched to clinical indication); or iterative reconstruction.
[2022-12-10] MEDS: Omnipaque 350 MG/ML 500 ML BTL-Imaging package 100 ML IJ (11:09)
[2022-12-10] MEDS: Normal Saline - Diluent 50 ML VIAL IJ (11:10)
[2022-12-10 19:25] LABS: CEA 0.9 ng/mL (See Note)
[2022-12-12 14:40] LABS: IgA 362 mg/dL (85-499); Interpretation (See Note); Tissue Transglutaminase IgA <1.2 U/mL (<4.0)
== END 2022-12-10 02:02 ==
LOC: DI 01:43
PROVIDERS: PCP Physician Assistant Medical; Visit Provider Internal Medicine Hematology & Oncology
DX: C20 Malignant neoplasm of rectum (principal)
CPT/HCPCS: 74177; 80053; 80061; 82306; 82784; 83516; 71260; 82378; 85025

== ENCOUNTER 2023-06-17 02:26 | Outpatient (CLI) | payer BC, SELFPAY ==
[2023-06-17 07:13] LABS: Abs Immature Grans 0.02 10^3/uL (0.0-0.06); Absolute Basophil Count 0.04 10^3/uL (0.0-0.2); Absolute Eosinophil Count 0.27 10^3/uL (0.0-0.7); Absolute Lymphocyte Count 2.63 10^3/uL (1.2-3.4); Absolute Monocyte Count 0.55 10^3/uL (0.1-0.8); Absolute Neutrophil Count 3.74 10^3/uL (1.2-6.7); Basophils % 0.6; Eosinophils % 3.7; HCT 40.6 % (36.0-46.0); HGB 13.5 g/dL (11.2-15.7); Immature Grans % 0.3; Lymphocytes % 36.3; MCH 29.5 pg (27.0-33.0); MCHC 33.3 % (32.0-36.0); MCV 89 fL (80-95); Monocytes % 7.6; Neutrophils % 51.5; Platelet Count 275 10^3/uL (130-400); RBC 4.57 10^6/uL (3.93-5.22); RDW 12.8 % (11.7-14.6); RDW-SD 42.4 fL; WBC 7.25 10^3/uL (4.4-10.8)
[2023-06-17 07:29] LABS: ALT 19 U/L (14-59); AST 14 U/L (15-37); Albumin 3.2 g/dL (3.4-5.0); Alkaline Phosphatase 61 U/L (46-116); BUN 11 mg/dL (7-18); Bilirubin, Total 0.4 mg/dL (0.2-1.0); CREATININE 0.8 mg/dL (0.55-1.02); Calcium 9.1 mg/dL (8.5-10.1); Chloride 103 mmol/L (98-107); Glucose 88 mg/dL (74-106); Potassium 3.6 mmol/L (3.5-5.1); Sodium 138 mmol/L (136-145); Total Protein 7.1 g/dL (6.4-8.2)
[2023-06-17 18:53] LABS: CEA 0.8 ng/mL (See Note)
== END 2023-06-17 02:27 | disposition home or self-care (01) ==
LOC: LBO 02:26
PROVIDERS: PCP Physician Assistant Medical; Visit Provider Nurse Practitioner Family
DX: C20 Malignant neoplasm of rectum (principal)
CPT/HCPCS: 36415; 80053; 82378; 85025

== ENCOUNTER → 2023-11-21 02:05 | Outpatient (CLI) | payer BC, SELFPAY ==
--- NOTE | 2023-11-21 | DI.MAMMO_ITS ---
Exam(s) MAMMO SCREENING EXAM: MAMMO SCREENING CLINICAL HISTORY: SCREENING MAMMO FOR BREAST CANCER Z12.31. TECHNIQUE: Bilateral full field digital CC and MLO mammographic images were obtained with 3D tomosyn thesis and utilizing computer aided detection (CAD). COMPARISON: Prior mammograms were reviewed. FINDINGS: There has been no significant change in the appearance and distribution of the fibroglandular tissue. No new findings in the immediate vicinity of the biopsy marker clip in the left breast. There are no new spiculated masses nor malignant appearing microcalcification groups. Area of asymmetric tissue medial of center in the right breast is unchanged from mammograms dating ba to at least 2014. There is no significant architectural distortion nor skin thickening-retraction. IMPRESSION: No radiographic evidence of malignancy. BI-RADS Category 2 - Benign Findings Breast Density - Category B - Scattered areas of fibroglandular density Breast density Category C or D implies that the patient has dense breast tissue. Dense breast tissue can make it harder to find cancer on a mammogram. Dense breast tissue is also associated with an incr eased risk of breast cancer. This information about the result of the mammogram report was provided to the patient to raise their awareness. Use this report when you speak with the patient about their risks for breast cancer, which includes their family history. At that time, you may recommend additional screening tests (Ultrasoun d or MRI) as these tests may add significant information. A negative radiographic report should not delay biopsy if a dominant or clinically suspicious mass is present. Up to ten percent of cancers are not identified on mammography. A negative report may reinforce clinical impression. Adenosis and dense breasts may obscure an underlying neoplasm. False positive reports average 6 to 10%. Patient will receive a letter notifying them of these results.
== END ==
PROVIDERS: PCP Physician Assistant Medical; Visit Provider Physician Assistant Medical
DX: Z12.31 Encounter for screening mammogram for malignant neoplasm of breast (principal)
CPT/HCPCS: 77063; 77067

== ENCOUNTER 2024-03-01 05:24 | Outpatient (CLI) | payer BC, SELFPAY ==
[2024-03-01 09:57] LABS: Abs Immature Grans 0.02 10^3/uL (0.0-0.06); Absolute Basophil Count 0.03 10^3/uL (0.0-0.2); Absolute Eosinophil Count 0.15 10^3/uL (0.0-0.7); Absolute Lymphocyte Count 2.02 10^3/uL (1.2-3.4); Absolute Monocyte Count 0.48 10^3/uL (0.1-0.8); Absolute Neutrophil Count 3.39 10^3/uL (1.2-6.7); Basophils % 0.5 %; Eosinophils % 2.5 %; HCT 41.9 % (36.0-46.0); Immature Grans % 0.3 %; Lymphocytes % 33.2 %; MCH 29.7 pg (27.0-33.0); MCHC 33.4 % (32.0-36.0); MCV 89 fL (80-95); MPV 9.2 fL (8.0-11.0); Monocytes % 7.9 %; Neutrophils % 55.6 %; Platelet Count 293 10^3/uL (130-400); RBC 4.71 10^6/uL (3.93-5.22); RDW 12.7 % (11.7-14.6); RDW-SD 41.8 fL; WBC 6.09 10^3/uL (4.4-10.8)
[2024-03-01 10:30] LABS: ALT 28 U/L (14-59); AST 20 U/L (15-37); Albumin 3.4 g/dL (3.4-5.0); Alkaline Phosphatase 59 U/L (46-116); Anion Gap 6.2 mmol/L (3-11); BUN 9 mg/dL (7-18); Bilirubin, Total 0.5 mg/dL (0.2-1.0); CO2 28.8 mmol/L (21.0-32.0); CREATININE 0.7 mg/dL (0.55-1.02); Calcium 9.3 mg/dL (8.5-10.1); Chloride 105 mmol/L (98-107); Estimated GFR 98.95 (mL/min/1.73m2); Glucose 67 mg/dL (74-106); Potassium 3.4 mmol/L (3.5-5.1); Sodium 140 mmol/L (136-145); Total Protein 7.5 g/dL (6.4-8.2)
== END 2024-03-01 05:25 | disposition home or self-care (01) ==
LOC: LBO 05:24
PROVIDERS: PCP Physician Assistant Medical; Visit Provider Nurse Practitioner Family
DX: C20 Malignant neoplasm of rectum (principal)
CPT/HCPCS: 36415; 80053; 82378; 85025

== ENCOUNTER → 2024-05-04 01:07 | Outpatient (CLI) | payer BC, SELFPAY ==
--- NOTE | 2024-05-04 | DI.MRI_ITS ---
Exam(s) MR UPPER JOINT RT WO EXAM: MR UPPER JOINT RT WO CLINICAL HISTORY: Pain in rt shoulder, M25.511. TECHNIQUE: Multiplanar multisequence MRI was performed. COMPARISON: No exams were available for comparison FINDINGS: BONES: There is no fracture or contusion pattern. JOINTS: There are mild degenerative changes seen at the acromioclavicular joint. There is mild thinn ing of the articular cartilage of the glenohumeral joint. No significant joint effusion is present. Subchondral cysts are seen at the acromion at the AC joint. TENDONS: Supraspinatus: There is tendinosis of the supraspinatus without evidence of a tear. Infraspinatus: Unremarkable. Subscapularis: Unremarkable. Teres Minor: Unremarkable. Biceps and [place]: Unremarkable. MUSCLES: Unremarkable. GLENOID LABRUM: There is fraying and decrease in size of the posterior and superior labrum. The zahida chris of the labrum is grossly unremarkable. SOFT TISSUES: Unremarkable. LIGAMENTS: Unremarkable. OTHER: Subacromial and subdeltoid bursae are unremarkable. IMPRESSION: 1. Fraying and decrease in size of the posterior superior labrum which may be chronic. 2. No evidence of a tendon tear. There is tendinosis of the supraspinatus tendon. 3. Degenerative changes seen at the acromioclavicular joint and glenohumeral joint. DATA REPOSITORY:
== END ==
PROVIDERS: PCP Physician Assistant Medical; Visit Provider Physician Assistant Medical
DX: M25.511 Pain in right shoulder (principal); M19.011 Primary osteoarthritis, right shoulder
CPT/HCPCS: 73221

== ENCOUNTER 2024-06-02 14:06 | Outpatient (CLI) | payer BC, SELFPAY ==
--- NOTE | 2024-06-02 14:10 | DI.RAD_ITS ---
Exam(s) XR SHOULDER RT COMPLETE 2+V EXAM: XR SHOULDER RT COMPLETE 2+V CLINICAL HISTORY: RIGHT SHOULDER PAIN. TECHNIQUE: 2D digital imaging was performed of the right shoulder. Two images were obtained. Grash ey and axillary views were obtained. COMPARISON: MR MR UPPER JOINT RT WO from 05/04/2024 FINDINGS: BONES: No acute fracture is present. No bony destructive lesion is seen. JOINTS: No dislocation present. Glenohumeral joint is well maintained. There are mild degenerative c hanges seen at the acromioclavicular joint. SOFT TISSUE: Normal. IMPRESSION: Mild degenerative changes seen at the acromioclavicular joint. DATA REPOSITORY: RADIATION DOSE DELIVERED:
== END 2024-06-02 14:07 | disposition home or self-care (01) ==
LOC: DIORS 14:06
PROVIDERS: PCP Physician Assistant Medical; Visit Provider Student in an Organized Health Care Education/Training Program
DX: M25.511 Pain in right shoulder (principal)
CPT/HCPCS: 73030

== ENCOUNTER 2024-06-04 10:46 | Day surgery (SDC) | payer BC, SELFPAY ==
--- NOTE | 2024-06-03 23:17 | W.COLOREPORT ---
Date of service: 06/04/24 Time of Service: 13:25 Colonoscopy Report Date of procedure: 06/04/24 Pre-op diagnosis general: rectal cancer/poossible distl colonic stricture Post-op diagnosis procedure note: same (Mild radiation proctitis) Procedure: CE with dilation Surgeon: Winnie Perez Anesthesia Type: General:No Airway Estimated blood loss (mL): 1 Pathology: none sent Complications: None Disposition: same day Prep: Miralax/Dulcolax Retraction Time: 15 Procedure Description: After informed consent was obtained, explaining risks of the procedure, including but not limits to: bleeding, infections, complications of anesthesia, perforations (which may require antibiotics and /or surgery and stay in the hospital), and abdominal pain/cramping. The patient was taken to the procedure room and placed in a left decubitous position. Monitors were applied and a time out was done. The patients name, date of , procedure, allergies to medications and metal in their body was reviewed. The patient was then sedated. Once sedated and comfortable a rectal exam was done. External exam was normal. Internal exam revealed a normal sphincter tone and no palpable masses. The previously lubricated Olympus scope was then introduced (see RN notes for scope number) and retrofelexed. No internal hemorrhoids were identified. The scope was then advanced to the cecum without difficulty. The TI and appendiceal orifice were identified. The scope was then slowly retracted over 15 minutes back into the rectum. Polyps: no. Diverticula: no. At 10 cm is her anastomosis from her LAR for rectal cancer. She does have a mild stricture in this area. This is dilated to 19 mm / 3 erika for 2 minutes. Then 20 mm at 6 erika for 2 minutes. There is minimal excoriation or bleeding noted. There is no anastomotic disruption. she does have some mild chronic changes from radiation in the distal rectum. the scope was removed, and the patient was woken up and taken back to Same day surgery in stable condition. The patient tolerated the procedure well and there were no immediate complications. Follow up: The patient should follow up in 5 years, unless they develop changes in bowel habits or other new gastrointestinal complaints. [place] Bowel Prep [place] Bowel Prep Right Colon: 3 Left Colon: 0 Transverse Colon: 3 Total Score: 6
--- NOTE | 2024-06-03 23:19 | PDOC.DSDIS_ITS ---
Date of service: 06/04/24 Time of Service: 13:36 Discharge Plan Disposition Patient Disposition: Home Condition: Good Discharge Details Reason For Visit: colon cancer screening Attending Provider: Winnie Perez Primary Care Provider: Willian Petersen Home Meds and New Rx's Prescriptions: Continued cetirizine 10 mg tablet 10 mg PO DAILY estradiol 1 mg tablet 1 mg PO DAILY Rx Instructions: off 1 week; repeat cycle sumatriptan succinate [Imitrex] 25 mg tablet 25 mg PO ONCE lisinopril 20 mg tablet 20 mg PO DAILY senna 8.6 mg capsule 8.6 mg PO DAILY ketorolac 10 mg tablet 10 mg PO Q6H PRN Rx Instructions: maximum total duration of 5 days from all oral, intranasal, or parenteral formulations fluticasone propionate [Flonase Allergy Relief] 50 mcg/actuation spray,suspension 1 spray intranasal DAILY Rx Instructions: administer into each nostril budesonide [Pulmicort] 0.25 mg/2 mL suspension for nebulization 0.25 mg inhalation BID PRN dicyclomine 10 mg capsule 10 mg PO BID PRN ondansetron 4 mg tablet,disintegrating 4 mg PO Q6H PRN (Reason: nausea and vomiting) Qty: 10 0RF ergocalciferol (vitamin D2) [Vitamin D2] 1,250 mcg (50,000 unit) Capsule 50,000 units PO Q7D Qty: 2 0RF acetaminophen 325 mg tablet 650 mg PO HS PRN Discontinued polyethylene glycol 3350 17 gram/dose powder 238 g PO ONCE Qty: 238 0RF Rx Instructions: take per colonoscopy instructions bisacodyl [Dulcolax (bisacodyl)] 5 mg tablet,delayed release (DR/EC) 5 mg PO ONCE Qty: 4 0RF Rx Instructions: take per colonoscopy instructions No Action bisacodyl 5 mg tablet,delayed release (DR/EC) PO Patient Comments: TAKE PER COLONOSCOPY INSTRUCTIONS polyethylene glycol 3350 17 gram/dose powder Patient Comments: TAKE PER COLONOSCOPY INSTRUCTIONS Discharge Instructions Additional Instructions: DSU Colonoscopy Post- Op Instructions Instructions for Everyone who is given Anesthesia: For your safety, please do the following for the next twenty-four (24) hours: *Do Not operate a motor vehicle (car, truck, motorcycle, etc.) *Do Not drink alcoholic beverages or use any recreational drugs for the first 24 hours or while taking pain medications. The medications in your body may have a reaction that can be dangerous. *Do Not make any important decisions or sign any important papers. Findings: mild stricture @ 10cm. Dilation done today Follow up: repeat in 3 yrs time 1. No lifting over 20 pounds or strenuous activity for the first 24 hours after your procedure. After 24 hours there are no restrictions on your activity but you may feel fatigued for a few days. 2. After you arrive home you may have a light meal and return to your normal diet as you can tolerate it without feeling sick to your stomach. 3. You may have a bloated, gaseous feeling in your belly (abdomen) after a colonoscopy. Passing gas and belching will help. Walking or lying down on your left side with your knees flexed may relieve the discomfort. Call the office at [phone] (Office) or [phone] (Hospital) right away if you notice any of the following: a.Vomiting of blood or ?coffee ground stools?. b.Rectal bleeding 1Tbsp, blood clots or continuous bleeding. c.Severe belly (abdominal) pain. d.A hard distended belly (abdomen) and an inability to pass gas. 4. Please don?t expect to have a normal BM (bowel movement) for 2-3 days after your procedure. 5. If there are questions regarding the findings of your procedure, please contact your doctor 6. If you are unable to contact your doctor with a problem, contact the hospital at [phone]. 7. Continue all your regular medications unless directed otherwise. I understand the above instructions and have no questions. Signature of Patient or Adult Escort Name of Responsible Adult Escort Signature of Nurse Date/Time Stand Alone Forms: Anesthesia Discharge Inst., Scopolamine Skin Patch, Press Ganey (DSU) Activity:: see above Diet:: soft diet 24hrs Discharge Orders Discharge Orders: Discharge Order (Routine); Ordered 06/04/24 Ordered By: Winnie Perez DS: Diagnosis Discharge Diagnosis (1) Low vitamin D level: Status: Acute (2) Traumatic tear of right rotator cuff: Status: Acute (3) Hypertension: (4) Rectal prolapse: Asessment and Plan: The patient is seen and examined after their colonoscopy.? The patient has been able to pass gas.? They are not having abdominal pain.? They have been able to tolerate liquids and a snack.? They do not have any nausea or vomiting.? They are not having any chest pain or shortness of breath.??? They are not having any rectal bleeding. Their vital signs have been stable-see nursing notes. We discussed findings during their colonoscopy, and any biopsies that were done/polyps that were removed. The patient will be sent a letter with any biopsy results, and when to repeat the colonoscopy.-see discharge instructions. Patient was given explicit instructions to follow-up regarding colonoscopy-refer to discharge instructions.? We reviewed resumption of medications. Patient verbalized understanding and discharged in stable and satisfactory condition- See nursing notes. (5) Tubular adenoma of colon: (6) Rectal cancer: (7) Migraine: (8) Vaginal hysterectomy:
--- NOTE | 2024-06-04 06:22 | W.ANESPRE ---
General Info Date of Service Date Performed: 06/04/24 Height: 5 ft 7 in Weight: 96.729 kg Body Mass Index (BMI): 33.4 Surgical Procedure: Operation Date: 06/04/24 11:20 Proposed Procedure Side Surgeon el Perez, DO Meds Allergies and Home Medications Allergies Allergy/AdvReac Type Severity Reaction Status Date / Time latex Allergy Mild Skin Rash Verified 06/04/24 11:12 Opioids - Morphine Analogues AdvReac Severe N/V/Dizzine Verified 06/04/24 11:12 ss Home Medication ?Medication ?Instructions ?Recorded cetirizine 10 mg tablet 10 mg PO DAILY 07/03/20 estradiol 1 mg tablet 1 mg PO DAILY 07/03/20 fluticasone propionate 50 1 spray intranasal DAILY 02/02/21 mcg/actuation nasal spray,suspension (Flonase Allergy Relief) ondansetron 4 mg disintegrating 4 mg PO Q6H PRN nausea and 01/18/22 tablet vomiting #10 tabs ergocalciferol (vitamin D2) 1,250 50,000 units PO Q7D #2 caps 01/22/22 mcg (50,000 unit) capsule (Vitamin D2) lisinopril 20 mg tablet 20 mg PO DAILY 05/18/24 sennosides 8.6 mg capsule (senna) 8.6 mg PO DAILY 05/18/24 sumatriptan succinate 25 mg tablet 25 mg PO ONCE 05/18/24 (Imitrex) acetaminophen 325 mg tablet 650 mg PO HS PRN 05/24/24 budesonide 0.25 mg/2 mL suspension 0.25 mg inhalation BID PRN 05/24/24 for nebulization (Pulmicort) dicyclomine 10 mg capsule 10 mg PO BID PRN 05/24/24 ketorolac 10 mg tablet 10 mg PO Q6H PRN 05/24/24 bisacodyl 5 mg tablet,delayed mg PO 06/04/24 release polyethylene glycol 3350 17 g 06/04/24 gram/dose oral powder Current Visit Medications: Current Medications Generic Name Dose Route Start Last Admin Trade Name Freq PRN Reason Stop Dose Admin Hyoscyamine Sulfate 0.125 mg 06/04/24 11:15 Hyoscyamine 0.125 Mg Sl/Oral/Chew SL 07/04/24 11:14 DIRECTED PRN Ringer's Solution 1,000 mls @ 80 mls/hr 06/04/24 06:00 IV 06/04/24 23:59 INFUSION [facility] IV Miscellaneous Supplies 1 each 06/04/24 06:00 Iv Access IV 06/04/24 23:59 DIRECTED [facility] Ondansetron HCl 4 mg 06/03/24 23:15 Ondansetron 4 Mg/2 Ml Vial IVP 07/03/24 23:14 Q4H PRN PRN Nausea / Vomiting Scopolamine HBr 1 mg 06/04/24 06:00 Scopolamine 1 Mg/3 Days Patch TD 06/04/24 16:00 DIRECTED FRITZ Sodium Chloride 0 ml 06/04/24 06:00 Normal Saline Flush 10 Ml Syr IV 06/04/24 23:59 PRN PRN Sodium Chloride 0 ml 06/04/24 06:00 Normal Saline 10 Ml Vial IJ 06/04/24 23:59 DIRECTED PRN Sterile Water 0 ml 06/04/24 06:00 Water,Injection,Sterile 10 Ml Vial IJ 06/04/24 23:59 DIRECTED PRN PFSH Active Problems Active Problems: Problem Status Onset Code Traumatic tear of right rotator cuff Acute S46.011A Chondromalacia, right shoulder Acute M94.211 Tendonitis of long head of biceps brachii of right shoulder Acute M75.21 Low vitamin D level Acute R79.89 Internal derangement of right knee Acute M23.91 Tendinitis of left quadriceps tendon Acute M76.892 Medical History Medical History GI bleed Small bowel obstruction Small bowel obstruction due to adhesions Hypertension Hx of small bowel obstruction Tubular adenoma of colon (09/30/16) invasive adenocarcinoma arising in a tubular adenoma. Rectal prolapse Migraine Anxiety Rectal cancer treated with partial colectomy (oct 2017) and radiation Medical History Comments:: Requests scopolamine patch Surgical History Surgical History History of colonoscopy (~03/16/21) left subclavian vein port removal (05/07/18) colostomy takedown (10/15/17) Vaginal hysterectomy Colonoscopy - MAC (06/01/18) Colonoscopy - MAC (01/01/17) Colonoscopy - MAC (09/30/16) Partial resection of colon (11/27/16) with colostomy, reversal 10/15/17 Cholecystectomy Biopsy of breast Tobacco Smoking/Tobacco Use Status: Never Alcohol Alcohol Intake: current Alcohol intake frequency: a few times a month Substance Use Substance use: Never Substance use type: does not use Vital Signs and Lab Results Vital Signs Most Recent Vital Signs in EMR: Temp Pulse Resp BP Pulse Ox 36.3 C L 71 16 146/96 H 98 06/04/24 11:17 06/04/24 11:17 06/04/24 11:17 06/04/24 11:17 06/04/24 11:17 Lab Results Blood Type / Crossmatch: No Data to Display Complete Blood Count: No Data to Display Complete Metabolic Panel: No Data to Display Liver Function Panel: No Data to Display Coagulation Panel: No Data to Display Cardiac Panel: No Data to Display Arterial Blood Gas: No Data to Display Venous Blood Gas: No Data to Display Pancreas Panel: No Data to Display Thyroid Panel: No Data to Display Infectious Disease: No Data to Display Blood Cultures: No Data to Display Toxicology Panel: No Data to Display Imaging and Studies Imaging and Studies Study information below may be from another EMR and interpreted by another provider. Please see original notes in EMR for more complete details. Pulmonary Function Summary: 05/03/2016: IMPRESSION: No evidence of obstructive or restrictive lung disease. Normal pulmonary function study. No post-bronchodilator testing was carried out. When this study was compared to previous one from 01/14/11, the patient's diffusion capacity has been stable. FVC has declined by 300 cc's. FEV1 has declined by 250 cc's. Anesthesia Assessment and Plan Anesthesia History Personal History: PONV Family History: No Family History of Anesthesia Complications Exercise Tolerance Exercise Tolerance: Metabolic Equivalents>4 Pertinent Negatives Pertinent Negatives: No Symptoms of GERD, No Major Cardiovascular Symptoms or Complaints, No Major Pulmonary Symptoms or Complaints and No History of CVA/TIA Cardiac & Pulmonary Exam Cardiac Exam: Normal S1/S2 Heart Sounds Pulmonary Exam: Clear Bilateral Breath Sounds Implantable Cardiac Device Does patient have a Pacemaker or an ICD?: No Airway Exam Known Difficult Airway: No Mallampati Class: 3 Mouth Opening: Normal (> 3cm) Thyromental Distance: Greater than 3 cm Neck Range of Motion: Full ROM Neck Circumference: Normal Teeth Condition: Normal Dentition ASA Classification ASA Score: ASA 2 Emergency Case?: No NPO Status NPO Status: NPO Clears >2 hours, Solids >8 hours Anesthesia Plan Resuscitation Status: Full Code Anesthesia Technique: General Anesthesia Airway Planned: Natural Airway Monitors Used: Standard Monitors Preoperative Comments:: 59 yo female presents for surveillance colonoscopy with hx of Migraine, Anxiety, HTN, Rectal cancer treated with partial colectomy (oct 2017) and radiation.
[2024-06-04 11:17] VITALS: BP 146/96; PULSE 71; RESP 16; TEMP 36.3; O2SAT 98
[2024-06-04] MEDS: Scopolamine 1 MG/3 DAYS PATCH TD (11:21)
[2024-06-04 11:38] VITALS: BMI 33.4
[2024-06-04] MEDS: Lactated Ringers 1,000 ML 80 ML IV (11:45)
[2024-06-04 13:14] VITALS: BP 125/89; PULSE 70; RESP 16; TEMP 36.3; O2SAT 100
--- NOTE | 2024-06-04 13:15 | DI.RAD_ITS ---
Exam(s) XR FLOURO OR C-ARM <1 HR EXAM: XR FLOURO OR C-ARM <1 HR CLINICAL HISTORY: DILATION DURING COLONOSCOPY. TECHNIQUE: 2D and realtime digital imaging was performed. COMPARISON: No exams were available for comparison FINDINGS: Please see procedure note for details. Fluoro time: 3.6seconds RADIATION DOSE DELIVERED: nichelle Roman=1.8 mGy
[2024-06-04 13:45] VITALS: BP 151/95; PULSE 60; RESP 16; TEMP 36.5; O2SAT 100
--- NOTE | 2024-06-04 13:57 | W.ANESPOSTOP ---
Postoperative Evaluation Date, Time and Location Date Performed: 06/04/24 Time Performed: 13:40 Patient Location: Day Surgery Unit Vital Signs Most Recent Imported Vital Signs: Most Recent Vital Signs Temp Pulse Resp BP Pulse Ox 36.3 C L 70 16 125/89 100 06/04/24 13:14 06/04/24 13:14 06/04/24 13:14 06/04/24 13:14 06/04/24 13:14 Pain Score Most Recent Pain Score: Most Recent Pain Score Pain Level 0 06/04/24 13:14 Assessment Mental Status: Awake (Alert & Oriented to Patient Baseline) Airway and Respiratory Function: Patent airway with normal (patient baseline) respiratory exam Cardiovascular Function: Hemodynamically Stable Hydration Status: Adequately Hydrated Nausea & Vomiting: No Nausea or Vomiting Pain: Pt. Denies Any Pain Peripheral Nerve Block: Patient did not receive a nerve block
== END 2024-06-04 14:08 | disposition home or self-care (01) ==
LOC: SUR 10:46
PROVIDERS: PCP Physician Assistant Medical; Visit Provider Surgery
PROC: 0DJD8ZZ Inspection of Lower Intestinal Tract, Via Natural or Artificial Opening Endoscopic (ICD-10-PCS; CPT 45378; principal; 2024-06-04 11:15)
DX: K62.3 Rectal prolapse; Z12.11 Encounter for screening for malignant neoplasm of colon; Z85.040 Personal history of malignant carcinoid tumor of rectum
CPT/HCPCS: 45378; 76000; J2001; J2704

== ENCOUNTER 2024-07-06 11:51 | Outpatient (REF) | payer BC, SELFPAY ==
[2024-07-06 18:09] LABS: Anion Gap 9.6 mmol/L (3-11); BUN 8 mg/dL (7-18); CO2 27.4 mmol/L (21.0-32.0); CREATININE 0.8 mg/dL (0.55-1.02); Calcium 9.2 mg/dL (8.5-10.1); Calculated LDL 149 mg/dL (<100); Chloride 103 mmol/L (98-107); Cholesterol 233 mg/dL (<200); Estimated GFR 83.78 (mL/min/1.73m2); Glucose 89 mg/dL (74-106); HDL Cholesterol 61 mg/dL (40-60); Potassium 3.9 mmol/L (3.5-5.1); Sodium 140 mmol/L (136-145); Triglyceride 119 mg/dL (<150); Vitamin D 25 Total 51.4 ng/mL (30-100)
== END 2024-07-06 11:52 | disposition home or self-care (01) ==
LOC: NCHCN 11:51
PROVIDERS: PCP Physician Assistant Medical; Visit Provider Physician Assistant Medical
DX: I10 Essential (primary) hypertension (principal); E55.9 Vitamin D deficiency, unspecified
CPT/HCPCS: 80048; 80061; 82306

== ENCOUNTER 2024-08-26 17:55 | Outpatient (REF) | payer BC, SELFPAY ==
[2024-08-26 15:41] LABS: Anion Gap 10.7 mmol/L (3-11); BUN 10 mg/dL (7-18); CO2 24.3 mmol/L (21.0-32.0); CREATININE 0.8 mg/dL (0.55-1.02); Calcium 9.6 mg/dL (8.5-10.1); Chloride 106 mmol/L (98-107); Estimated GFR 83.78 (mL/min/1.73m2); Glucose 94 mg/dL (74-106); Potassium 4.1 mmol/L (3.5-5.1); Sodium 141 mmol/L (136-145)
== END 2024-08-26 17:56 | disposition home or self-care (01) ==
LOC: NCHCN 17:55
PROVIDERS: PCP Physician Assistant Medical; Visit Provider Physician Assistant Medical
DX: I10 Essential (primary) hypertension (principal)
CPT/HCPCS: 80048

== ENCOUNTER 2024-11-25 02:40 | Outpatient (CLI) | payer BC, SELFPAY ==
--- NOTE | 2024-11-25 | DI.MAMMO_ITS ---
Exam(s) MAMMO SCREENING EXAM: MAMMO SCREENING CLINICAL HISTORY: SCREENING, Z12.31. TECHNIQUE: Bilateral full field digital CC and MLO mammographic images were obtained with 3D tomosyn thesis and utilizing computer aided detection (CAD). COMPARISON: Prior mammograms were reviewed. FINDINGS: There has been no significant change in the appearance and distribution of the fibroglandular tissue. Asymmetric densities right breast are unchanged from all prior mammograms. No findings in the immediate vicinity of a biopsy marker device in left breast. There are no new spiculated masses nor new malignant appearing microcalcification groups in either br east. There is no significant architectural distortion nor skin thickening-retraction. IMPRESSION: No radiographic evidence of malignancy. BI-RADS Category 1 - Negative Breast Density - Category B - Scattered areas of fibroglandular density Breast density Category C or D implies that the patient has dense breast tissue. Dense breast tissue can make it harder to find cancer on a mammogram. Dense breast tissue is also associated with an incr eased risk of breast cancer. This information about the result of the mammogram report was provided to the patient to raise their awareness. Use this report when you speak with the patient about their risks for breast cancer, which includes their family history. At that time, you may recommend additional screening tests (Ultrasoun d or MRI) as these tests may add significant information. A negative radiographic report should not delay biopsy if a dominant or clinically suspicious mass is present. Up to ten percent of cancers are not identified on mammography. A negative report may reinforce clinical impression. Adenosis and dense breasts may obscure an underlying neoplasm. False positive reports average 6 to 10%. Patient will receive a letter notifying them of these results.
== END 2024-11-25 03:00 ==
PROVIDERS: PCP Physician Assistant Medical; Visit Provider Physician Assistant Medical
DX: Z12.31 Encounter for screening mammogram for malignant neoplasm of breast (principal); R92.323 Mammographic fibroglandular density, bilateral breasts
CPT/HCPCS: 77063; 77067

== ENCOUNTER 2024-12-01 11:07 | Outpatient (CLI) | payer BC, SELFPAY ==
--- NOTE | 2024-12-01 10:45 | DI.RAD_ITS ---
Exam(s) XR HIP PELVIS ADULT BL EXAM: XR HIP PELVIS ADULT BL CLINICAL HISTORY: Pain in unspecified hip, M25.559. TECHNIQUE: 2D digital imaging was performed of the pelvis and bilateral hips. Five images were obta ined. AP pelvis and lateral views of both hips were obtained. COMPARISON: CR XR ABDOMEN FLAT UPRIGHT from 01/29/2022 FINDINGS: BONES: No acute fracture is present. No bony destructive lesion is seen. JOINTS: No dislocation present. There are mild degenerative changes seen in the hips bilaterally, lef t greater than right. SOFT TISSUE: Normal. IMPRESSION: 1. Mild degenerative changes of the hips bilaterally, left greater than right. 2. No acute abnormality. DATA REPOSITORY: RADIATION DOSE DELIVERED:
== END 2024-12-01 11:27 ==
LOC: DI 11:08
PROVIDERS: PCP Physician Assistant Medical; Visit Provider Physician Assistant Medical
DX: M16.0 Bilateral primary osteoarthritis of hip (principal)
CPT/HCPCS: 73521

== ENCOUNTER 2025-03-14 13:23 | Outpatient (CLI) | payer BC, SELFPAY ==
--- NOTE | 2025-03-14 | DI.RAD_ITS ---
Exam(s) XR CHEST 2V PA LATERAL EXAM: XR CHEST 2V PA LATERAL CLINICAL HISTORY: COUGH,R05.9 TECHNIQUE: 2D digital imaging was performed of the chest. Two images were obtained. PA and lateral views were obtained. COMPARISON: CR XR CHEST 2V PA LATERAL from 09/29/2019 FINDINGS: MEDIASTINUM: Normal. HEART: Normal. PULMONARY VASCULATURE: Normal. LUNGS: Clear. PLEURAL SPACE: No pleural effusion or pneumothorax. BONE:Within normal limits for the patient's age. OTHER FINDINGS:Normal. IMPRESSION: No acute pulmonary findings. DATA REPOSITORY: RADIATION DOSE DELIVERED:
== END 2025-03-14 13:43 ==
LOC: DI 13:24
PROVIDERS: PCP Physician Assistant Medical; Visit Provider Physician Assistant Medical
DX: R05.9 Cough, unspecified (principal)
CPT/HCPCS: 71046

== ENCOUNTER 2025-03-14 16:05 | Outpatient (REF) | payer BC, SELFPAY ==
[2025-03-14 16:05] LABS: Absolute Eosinophil Count 0.06 10^3/uL (0.0-0.7); Absolute Lymphocyte Count 1.61 10^3/uL (1.2-3.4); Absolute Monocyte Count 0.58 10^3/uL (0.1-0.8); Absolute Neutrophil Count 11.37 10^3/uL (1.2-6.7); Basophils % 0.4 %; Eosinophils % 0.4 %; HCT 42.6 % (36.0-46.0); Immature Grans % 0.7 %; Lymphocytes % 11.7 %; MCH 29.3 pg (27.0-33.0); MCHC 32.9 % (32.0-36.0); MCV 89 fL (80-95); MPV 9.3 fL (8.0-11.0); Monocytes % 4.2 %; Neutrophils % 82.6 %; Platelet Count 339 10^3/uL (130-400); RBC 4.78 10^6/uL (3.93-5.22); RDW 13.2 % (11.7-14.6); WBC 13.77 10^3/uL (4.4-10.8)
[2025-03-14 16:15] LABS: Absolute Basophil Count 0.06 10^3/uL (0.0-0.2)
[2025-03-14 16:25] LABS: ALT 26 U/L (14-59); AST 21 U/L (15-37); Albumin 3.5 g/dL (3.4-5.0); Alkaline Phosphatase 66 U/L (46-116); Anion Gap 9.4 mmol/L (3-11); BUN 14 mg/dL (7-18); Bilirubin, Total 0.4 mg/dL (0.2-1.0); CO2 28.6 mmol/L (21.0-32.0); CREATININE 0.8 mg/dL (0.55-1.02); Calcium 9.7 mg/dL (8.5-10.1); Chloride 102 mmol/L (98-107); Estimated GFR 83.78 (mL/min/1.73m2); Glucose 111 mg/dL (74-106); Potassium 4.4 mmol/L (3.5-5.1); Sodium 140 mmol/L (136-145); Total Protein 7.6 g/dL (6.4-8.2)
[2025-03-15 10:25] LABS: Lyme Ab w Rflx to Lyme Confirm Negative (Negative)
[2025-03-16 14:12] LABS: Anaplasma phagocytophilum Negative (Negative); B. miyamotoi PCR Negative (Negative); Babesia divergens/MO-1 Negative (Negative); Babesia duncani Negative (Negative); Babesia microti Negative (Negative); Ehrlichia chaffeensis Negative (Negative); Ehrlichia ewingii/canis Negative (Negative); Ehrlichia muris eauclairensis Negative (Negative)
== END 2025-03-14 16:06 | disposition home or self-care (01) ==
LOC: NCHCN 16:05
PROVIDERS: PCP Physician Assistant Medical; Visit Provider Physician Assistant Medical
DX: R05.9 Cough, unspecified (principal); S20.1 Other and unspecified superficial injuries of breast
CPT/HCPCS: 80053; 87798; 83735; 85025; 86618

== ENCOUNTER 2025-06-06 16:14 | Outpatient (REF) | payer BC, SELFPAY ==
[2025-06-06 16:25] LABS: ALT 25 U/L (14-59); AST 25 U/L (15-37); Albumin 3.2 g/dL (3.4-5.0); Alkaline Phosphatase 56 U/L (46-116); Anion Gap 7.0 mmol/L (3-11); BUN 8 mg/dL (7-18); Bilirubin, Total 0.4 mg/dL (0.2-1.0); CO2 29.0 mmol/L (21.0-32.0); Calcium 9.3 mg/dL (8.5-10.1); Calculated LDL 143 mg/dL (<100); Chloride 105 mmol/L (98-107); Cholesterol 225 mg/dL (<200); Estimated GFR 97.72 (mL/min/1.73m2); Glucose 91 mg/dL (74-106); HDL Cholesterol 57 mg/dL (>or=50); Potassium 4.0 mmol/L (3.5-5.1); Sodium 141 mmol/L (136-145); Total Protein 7.0 g/dL (6.4-8.2); Triglyceride 126 mg/dL (<150)
== END 2025-06-06 16:15 | disposition home or self-care (01) ==
LOC: NCHCN 16:14
PROVIDERS: PCP Physician Assistant Medical; Visit Provider Physician Assistant Medical
DX: I10 Essential (primary) hypertension (principal)
CPT/HCPCS: 80053; 80061

== ENCOUNTER 2025-06-08 01:10 | Outpatient (CLI) | payer BC, SELFPAY ==
--- NOTE | 2025-06-08 | DI.RAD_ITS ---
Exam(s) XR LUMBAR SPINE COMPLETE EXAM: XR LUMBAR SPINE COMPLETE CLINICAL HISTORY: LUMBAR BACK PAIN WITH RADICULOPATHY AFFECTING LLE,M54.16. TECHNIQUE: 2D digital imaging was performed of the lumbar spine. Five images were obtained. AP, lateral, right oblique, left oblique and L5-S1 spot views were obtained. COMPARISON: CR XR ABDOMEN FLAT UPRIGHT from 01/29/2022 FINDINGS: BONES: No fracture or destructive lesion. Endplate osteophytes are seen throughout the lumbar spine. Degenerative changes of the facets are seen at L4- 5 and L5-S1. DISKS: There is disc space narrowing at L3-4 and L5-S1. ALIGNMENT: There is mild grade 1 anterolisthesis of L4 on L5. No spondylolysis or spondylolisthesis. SOFT TISSUE: Normal. IMPRESSION: Moderate degenerative changes are seen in the lumbar spine. DATA REPOSITORY: RADIATION DOSE DELIVERED:
--- NOTE | 2025-06-08 | DI.RAD_ITS ---
Exam(s) XR TIB/FIB LT EXAM: XR TIB/FIB LT CLINICAL HISTORY: PAIN LT THOMPSON,M79.662. TECHNIQUE: 2D digital imaging was performed of the left tibia and fibula. Two images were obtained. AP and lateral views were obtained. COMPARISON: CR XR KNEE LT 4V AP,LAT,LEONILA,PAT from 07/03/2020 FINDINGS: The distal fibula is not included on the AP view. BONES: No acute or healing fracture is present. No bony destructive lesion is seen. Visualized portion of knee and ankle joints are unremarkable. SOFT TISSUE: Normal. IMPRESSION: Within the limits of the examination, no gross abnormality is identified. DATA REPOSITORY: RADIATION DOSE DELIVERED:
== END 2025-06-08 01:30 ==
LOC: DI 01:10
PROVIDERS: PCP Physician Assistant Medical; Visit Provider Physician Assistant Medical
DX: M51.362 Other intervertebral disc degeneration, lumbar region with discogenic back pain and lower extremity pain (principal)
CPT/HCPCS: 72110; 73590

== ENCOUNTER 2025-07-25 10:59 | Outpatient (CLI) | payer BC, SELFPAY ==
--- NOTE | 2025-07-25 11:10 | DI.RAD_ITS ---
Exam(s) XR CHEST 2V PA LATERAL EXAM: XR CHEST 2V PA LATERAL CLINICAL HISTORY: R05.1 Acute cough TECHNIQUE: 2D digital imaging was performed. Two views. COMPARISON: CR XR CHEST 2V PA LATERAL from 03/14/2025 FINDINGS: HEART: Normal size. Aorta: Not dilated. PULMONARY VASCULATURE: Normal. MEDIASTINUM: Unremarkable. LUNGS: Clear. PLEURAL SPACE: No pleural effusion or pneumothorax. BONE:Prominent endplate osteophytes. No compression fractures. SOFT TISSUES: Unremarkable. IMPRESSION: No acute abnormality. DATA REPOSITORY: RADIATION DOSE DELIVERED:
== END 2025-07-25 11:19 ==
LOC: DI 11:00
PROVIDERS: PCP Physician Assistant Medical; Visit Provider Physician Assistant Medical
DX: R05.1 Acute cough (principal)
CPT/HCPCS: 71046

== ENCOUNTER → 2025-09-06 01:33 | Outpatient (CLI) | payer BC, SELFPAY ==
--- NOTE | 2025-09-06 | DI.MRI_ITS ---
Exam(s) MR LUMBAR SPINE WO EXAM: MR LUMBAR SPINE WO CLINICAL HISTORY: LUMBAR BACK PAIN W RADICULOPATHY AFFECTING LEFT LOWER EXT, M54.16. TECHNIQUE: Multiplanar multisequence MRI of the Lumbar spine was performed. COMPARISON: CR XR LUMBAR SPINE COMPLETE from 06/08/2025 FINDINGS: Bones: The last intervertebral disc space is designated the L5/S1 level for the numbering purpose of this examination. The vertebral body heights are well maintained. Alignment is satisfactory. There is a meningioma or fatty rest in the L1 vertebral body. Mild degenerative endplate signal changes are present. Cord: It is of normal size and signal intensity. T12-L1: No disc herniations or bulges are present. No central spinal canal or neural foraminal stenosis. L1-2: No disc herniations or bulges are present. No central spinal canal or neural foraminal stenosis. L2-3: There is a mild diffuse disc bulge. No central spinal canal or neural foraminal stenosis. L3-4: There is a mild diffuse disc bulge. Degenerative changes of the facets are present, left greater than right. There is hypertrophy of the ligamentum flavum. There is minimal narrowing of the central spinal canal. There is [id number]-si-[id number] bilateral neural foraminal stenosis. L4-5: There is a diffuse disc bulge. There are hypertrophic changes of the facets and ligamentum flavum. There is resultant moderate central spinal canal stenosis. There is mild left neural foraminal stenosis and no significant right neural foraminal stenosis. L5-S1: There is a diffuse disc bulge at this level. There is a small central disc herniation. No central spinal canal or neural foraminal stenosis. Soft tissues: The visualized SI joints and sacrum are well maintained. The paraspinal soft tissues are unremarkable. IMPRESSION: 1. Multilevel degenerative changes in the lumbar spine. 2. The findings are most marked at L4-L5 where there is moderate central spinal canal stenosis and mild left neural foraminal stenosis. DATA REPOSITORY:
== END ==
PROVIDERS: PCP Physician Assistant Medical; Visit Provider Physician Assistant Medical
DX: M51.16 Intervertebral disc disorders with radiculopathy, lumbar region (principal)
CPT/HCPCS: 72148

== ENCOUNTER 2025-09-15 18:47 | Emergency (ER) | payer BC, SELFPAY ==
[2025-09-15] VITALS (33 sets, daily range): BP systolic 156–184; BP diastolic 83–108; PULSE 65–82; RESP 8–25; TEMP 36.7–36.9; O2SAT 95–100
--- NOTE | 2025-09-15 18:45 | RT.EKG_ITS ---
APPROVED REPORT Exam: Resting ECG Reason for Exam: chest pain Patient Location: E HR:70 bpm ECG Measurements Heart Rate 70 AXIS ME 168 P 52 QRSd 98 QRS 77 QT 435 T -25 QTc 469 Conclusion Sinus rhythm...normal P axis, V-rate 60- 99 Low voltage, precordial leads...precordial leads <1.0mV Non specific ST segement depression inf and anterior leads same as 12/2016
--- NOTE | 2025-09-15 19:10 | W.ED.GENAD ---
Discharge Plan Disposition Patient Disposition: Home Condition: Improving Discharge Details Clinical Impression: Atypical chest pain, Dehydration, Anxiety in acute stress reaction Primary Care Provider: Wlilian Petersen ED Provider: Nahid Cortes Meds and New Rx's Prescriptions: Continued cetirizine 10 mg tablet 10 mg PO DAILY estradiol 1 mg tablet 1 mg PO DAILY Rx Instructions: off 1 week; repeat cycle sumatriptan succinate [Imitrex] 25 mg tablet 25 mg PO ONCE lisinopril 20 mg tablet 20 mg PO DAILY senna 8.6 mg capsule 8.6 mg PO DAILY fluticasone propionate [Flonase Allergy Relief] 50 mcg/actuation spray,suspension 1 spray intranasal DAILY Rx Instructions: administer into each nostril budesonide [Pulmicort] 0.25 mg/2 mL suspension for nebulization 0.25 mg inhalation BID PRN dicyclomine 10 mg capsule 10 mg PO BID PRN ondansetron 4 mg tablet,disintegrating 4 mg PO Q6H PRN (Reason: nausea and vomiting) Qty: 10 0RF ergocalciferol (vitamin D2) [Vitamin D2] 1,250 mcg (50,000 unit) Capsule 50,000 units PO Q7D Qty: 2 0RF acetaminophen 325 mg tablet 650 mg PO HS PRN Discharge Instructions Instructions: Dehydration, Adult (DC), Why Water Is Important to Health, Chest Pain, Adult ED Stand Alone Forms: Portal Information Discharge Data Discharge Physician: Nahid Cortes HPI General Date/Time Provider Initiated Documentation: 09/15/25 19:09. 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 Denies any nausea vomiting. States that prior to this she had taking a beverage that consisted of baking soda lemon juice salt honey and water which she takes for hydration for she is a colon cancer survivor for 7 years and takes these hydrating beverages that she makes for hydration. Denies any shortness of breath Related Data Home Medications ?Medication ?Instructions ?Recorded ?Confirmed cetirizine 10 mg tablet 10 mg PO DAILY 07/03/20 09/15/25 estradiol 1 mg tablet 1 mg PO DAILY 07/03/20 09/15/25 fluticasone propionate 50 1 spray intranasal DAILY 02/02/21 09/15/25 mcg/actuation nasal spray,suspension (Flonase Allergy Relief) ondansetron 4 mg disintegrating 4 mg PO Q6H PRN nausea and 01/18/22 09/15/25 tablet vomiting #10 tabs ergocalciferol (vitamin D2) 1,250 50,000 units PO Q7D #2 caps 01/22/22 09/15/25 mcg (50,000 unit) capsule (Vitamin D2) lisinopril 20 mg tablet 20 mg PO DAILY 05/18/24 09/15/25 sennosides 8.6 mg capsule (senna) 8.6 mg PO DAILY 05/18/24 09/15/25 sumatriptan succinate 25 mg tablet 25 mg PO ONCE 05/18/24 09/15/25 (Imitrex) acetaminophen 325 mg tablet 650 mg PO HS PRN 05/24/24 09/15/25 budesonide 0.25 mg/2 mL suspension 0.25 mg inhalation BID PRN 05/24/24 09/15/25 for nebulization (Pulmicort) dicyclomine 10 mg capsule 10 mg PO BID PRN 05/24/24 09/15/25 Previous Rx's ?Medication ?Instructions ?Recorded ondansetron 4 mg disintegrating 4 mg PO Q6H PRN nausea and 01/18/22 tablet vomiting #10 tabs ergocalciferol (vitamin D2) 1,250 50,000 units PO Q7D #2 caps 01/22/22 mcg (50,000 unit) capsule (Vitamin D2) Allergies Allergy/AdvReac Type Severity Reaction Status Date / Time latex Allergy Mild Skin Rash Verified 06/04/24 11:12 Opioids - Morphine Analogues AdvReac Severe N/V/Dizzine Verified 06/04/24 11:12 ss General Stated Complaint: Chest Pain DOUG: 3 Review of Systems Narrative: Review of Systems: Constitutional: No fevers, chills, sweats Eye: No recent visual problems ENT: No ear pain, nasal congestion, sore throat Respiratory: No shortness of breath, cough Cardiovascular: , palpitations, syncope Gastrointestinal: No nausea, vomiting, diarrhea Genitourinary: No hematuria Blaine/Lymph: Negative for bruising tendency, swollen lymph glands Endocrine: Negative for excessive thirst, excessive hunger Musculoskeletal: No back pain, neck pain, joint pain, muscle pain, decreased range of motion Integumentary: No rash, pruritus, abrasions Neurologic: Alert & oriented X 4 Psychiatric: No anxiety, depression Exam Narrative Exam Narrative: Exam; vitals signs as reported above normal Constitutional; In no acute distress, afebrile General: cooperative, healthy appearing, comfortable and no acute distress HEENT: Head: normal to inspection, no palpable skull fracture and normocephalic atraumatic Eyes: : appearance normal, both eyes and all related structures EOM intact bilaterally Pupils: PERRL : conjunctiva normal Direct ophthalmoscopy: normal light reflex, normal conjunctiva, normal visual acuity Ears: Normal TM, normal external canal Nose: normal no rhinorreha Neck no JVD, supple non tender Neck: normal visual inspection, full ROM and no lymphadenopathy Chest: normal inspection of the chest Respiratory : normal respiratory effort and able to speak in complete sentences no wheezing no rales Cardio Rate: regular rate, rhythm: regular rhythm normal heart sounds S1 and S2 no murmurs, gallops, or rubs GI : normal to inspection, normal bowel sounds, soft, non tender, non distended, no organomegaly Back/Spine/ no CVA tenderness Thoracic/Lumbar Spine: no tenderness or deformities Skin no rashes or lesions Neuro: patient alert oriented x 4 and no meningeal signs, Cranial Nerves: CN's II-XI intact bilaterally, Cognition: normal cognition, Speech: speech normal, Gait: normal gait, Depp tendon reflexes normal 2+ muscle strength 5/5 bilaterally Extremities, no edema, full range of motion, normal strength Course Vital Signs Vital signs: Vital Signs Temperature 36.9 C 09/15/25 18:51 Pulse 71 09/15/25 18:51 Respiratory Rate 18 09/15/25 18:51 Blood Pressure 176/99 H 09/15/25 18:51 Pulse Oximetry 98 09/15/25 18:51 Temperature 36.9 C 09/15/25 18:51 Pulse 71 09/15/25 18:51 Respiratory Rate 18 09/15/25 18:51 Blood Pressure 176/99 H 09/15/25 18:51 Pulse Oximetry 98 09/15/25 18:51 Pain Level 5 09/15/25 18:51 Medical Decision Making MDM: Summary: Patient presents to the emergency department complaining of epigastric sharp pain and elevated blood pressure. States she is under a lot of stress from her job and before that she took a hydrating salts that she mixed with baking soda salts lemon started having the pressure in her stomach. EKG does not show any abnormality except for some atypical ST depressions which she has had since 2017 but did not correlate with ischemia. Patient had 2 troponins since which were negative. Her blood pressure was high and she was given 1 sublingual nitro which did not really make a difference. [id number]-ii-gbln ultrasound shows a very flat IVC with a hyperdynamic ventricle which probably is due to dehydration. She does tell me that she had some episodes of diarrhea earlier today and has not been keeping with hydration which probably could have caused this epigastric pain. D-dimer is negative. She was given IV Ringer's lactate and she says she feels much better at this time with a normal echocardiogram normal EKG and 2 negative troponins she will be discharged home with follow-up. I have told her she needs to take care of herself decrease stress levels and hydrate herself adequately in the and follow-up with her doctor for a stress test. Data Review Analysis All the data on this patient was reviewed by me including laboratory and imaging studies as well as bedside studies performed by me Independent review of Studies Imaging POCUS and a chest x-ray which are all negative Lab: Laboratory which include 2 troponins which are all negative and a negative D-dimer Risk Stratification: Patient with a heart score of 2 which has atypical epigastric pain and hypertension who will be discharged home Differential Diagnosis: 1. Dehydration 2. Atypical chest pain 3. Acute coronary syndrome 4. Pulmonary embolus 5. Uncontrolled hypertension Consultants: Shared disposition: Patient is send disposition will follow accordingly Impression: Medical Records Medical records reviewed: Yes I reviewed the patient's medical records. Lab Data Lab results reviewed: Yes I reviewed the patient's lab results. ECG Data Attestation: I personally reviewed and interpreted this ECG (s) as follows: Prior ECG tracings: available for review Interpretation: Heart rate of [address] normal sinus rhythm minimal ST segment depression diffuse leads unchanged from EKG done in December 2016 [facility] All Active Problems (Updated 09/15/25 @ 21:50 by Nahid Cortes MD) Anxiety in acute stress reaction (Acute) Dehydration (Acute) Atypical chest pain (Acute) Traumatic tear of right rotator cuff (Acute) Chondromalacia, right shoulder (Acute) Tendonitis of long head of biceps brachii of right shoulder (Acute) Low vitamin D level (Acute) Internal derangement of right knee (Acute) Tendinitis of left quadriceps tendon (Acute) Medical History GI bleed Small bowel obstruction Small bowel obstruction due to adhesions Hypertension Hx of small bowel obstruction Tubular adenoma of colon (09/30/16) invasive adenocarcinoma arising in a tubular adenoma. Rectal prolapse Migraine Anxiety Rectal cancer treated with partial colectomy (oct 2017) and radiation Surgical History History of colonoscopy (~05/2024) left subclavian vein port removal (05/07/18) colostomy takedown (10/15/17) Vaginal hysterectomy Colonoscopy - MAC (06/01/18) Colonoscopy - MAC (01/01/17) Colonoscopy - MAC (09/30/16) Partial resection of colon (11/27/16) with colostomy, reversal 10/15/17 Cholecystectomy Biopsy of breast Family History Mother Dementia Social History Smoking/Tobacco Use Status: Never Smoking risk assessment performed?: Yes Alcohol Intake: current Alcohol Intake frequency: a few times a month Alcohol type: beer Drug use: Never Substance use type: does not use Details: alcohol: t-8: one beer Household members: spouse Housing: house Do you feel safe at home: Yes Do you feel safe in your relationship?: Yes Additional Social history: [facility] POCUS Exam (ED) Limited Cardiac Exam DATE OF EXAM: 09/15/25 TIME OF EXAM: 21:50 PROVIDER THAT PERFORMED THE STUDY: Nahid Cortes IS THIS A REPEAT EXAM DURING THIS ENCOUNTER: no REASON FOR EXAM: Chest pain VISUALIZED STRUCTURES: Four Chambers, Left atrium, Left ventricle, LVOT, Right atrium, Right ventricle, Aortic valve, Mitral valve, Interventricular septum and IVC VIEW OBTAINED: Apical 4-Chamber, Parasternal long-axis, Parasternal short-axis, Subxiphoid and Other PERTINENT FINDINGS/IMPRESSION: IVC inspiratory collapsability (FLAT IVC) and No apparent abnormalities DIFFERENTIAL DIAGNOSES: HYPOVOLEMIA Exam complete
--- NOTE | 2025-09-15 19:15 | DI.RAD_ITS ---
Exam(s) XR CHEST 2V PA LATERAL EXAM: XR CHEST 2V PA LATERAL CLINICAL HISTORY: chest pain. TECHNIQUE: 2D digital imaging was performed. COMPARISON: CR XR CHEST 2V PA LATERAL from 07/25/2025 FINDINGS: 2 views: There chest leads in place. Heart size is normal. The mediastinum is not widened. Lungs are clear. No infiltrates nor pleural effusions. No pulmonary edema. No fractures. No pneumothorax. IMPRESSION: No acute pulmonary findings. DATA REPOSITORY: RADIATION DOSE DELIVERED:
[2025-09-15 19:43] LABS: Abs Immature Grans 0.04 10^3/uL (0.0-0.06); HCT 39.0 % (36.0-46.0); HGB 13.0 g/dL (11.2-15.7); Immature Grans % 0.4 %; MCH 29.5 pg (27.0-33.0); MCHC 33.3 % (32.0-36.0); MCV 88 fL (80-95); MPV 9.3 fL (8.0-11.0); Platelet Count 336 10^3/uL (130-400); RBC 4.41 10^6/uL (3.93-5.22); RDW 13.2 % (11.7-14.6); RDW-SD 43.0 fL; WBC 10.32 10^3/uL (4.4-10.8)
[2025-09-15 19:59] LABS: Lipase 21 U/L (<53)
[2025-09-15 20:00] LABS: Troponin I 3 ng/L (<35)
--- NOTE | 2025-09-15 20:00 | RT.EKG_ITS ---
APPROVED REPORT Exam: Resting ECG Reason for Exam: repeat Patient Location: E HR:83 bpm ECG Measurements Heart Rate 83 AXIS WA 181 P 69 QRSd 92 QRS 74 QT 393 T -9 QTc 463 Conclusion Sinus rhythm...normal P axis, V-rate 60- 99 Low voltage, precordial leads...precordial leads <1.0mV Minimal ST depression, diffuse leads...ST <-0.03mV, ant/lat/inf
[2025-09-15 20:01] LABS: ALT 17 U/L (10-49); AST 22 U/L (<34); Albumin 4.2 g/dL (3.2-5.0); Alkaline Phosphatase 65 U/L (46-116); Anion Gap 8 mmol/L (3-11); BUN 12 mg/dL (9-23); Bilirubin, Total 0.30 mg/dL (0.2-1.2); CO2 29.0 mmol/L (20.0-31.0); Calcium 9.6 mg/dL (8.3-10.6); Chloride 104 mmol/L (98-107); Glucose 97 mg/dL (74-106); Potassium 3.2 mmol/L (3.5-5.1); Sodium 141 mmol/L (136-145); Total Protein 7.4 g/dL (5.7-8.2)
[2025-09-15] MEDS: nitroGLYcerin 0.4 MG TAB SL (20:07)
[2025-09-15 20:10] LABS: D-Dimer 467 ng/mlFEU (<500)
[2025-09-15 20:39] LABS: Troponin I < 3 ng/L (<35)
--- NOTE | 2025-09-15 20:39 | DI.VRAD_ITS ---
PROCEDURE INFORMATION: Exam: XR Chest Exam date and time: 09/15/2025 7:38 PM Age: 60 years old Clinical indication: Pain; Chest pressure TECHNIQUE: Imaging protocol: Radiologic exam of the chest. Views: 2 views. COMPARISON: CR XR CHEST 2V PA LATERAL 07/25/2025 11:04 AM FINDINGS: Lungs: Unremarkable. No consolidation. Pleural spaces: Unremarkable. No pleural effusion. No pneumothorax. Heart/Mediastinum: Heart size upper limits of normal. Vasculature: There is mild aortic ectasia. Bones/joints: Unremarkable. IMPRESSION: No evidence for acute abnormality in the chest. Dictated and Authenticated by: Deanna Flores MD. Orderin Sophia Whitfield MD
[2025-09-15] MEDS: Lactated Ringers 1,000 ML 1000 ML IV (21:48)
[2025-09-15 22:37] LABS: Troponin I < 3 ng/L (<35)
--- NOTE | 2025-09-17 09:10 | NUR.NOTE ---
Access chart to reconcile EKG orders with EKG's in [facility]. Nursing Note:
== END 2025-09-15 22:57 | disposition home or self-care (01) ==
PROVIDERS: Emergency Provider Emergency Medicine Emergency Medical Services; PCP Physician Assistant Medical
DX: R07.89 Other chest pain (principal); E86.0 Dehydration; F41.9 Anxiety disorder, unspecified; R06.02 Shortness of breath
CPT/HCPCS: 99284; 99285; 36415; 80053; 83690; 93005; 93308; 96360; 71046; 84484; 85025; 85379; 93010